=== PATIENT | male | born 1975 | race Caucasian/White ===

== ENCOUNTER 2018-03-02 17:20 | Emergency (ER) | payer SELFPAY ==
[2018-03-02] MEDS ORDERED: IPRATROPIUM BROM 0.5MG/2.5ML ONE (18:02)
[2018-03-02] MEDS ORDERED: ALBUTEROL 2.5 MG/3 ML NEB SOL ONE (18:02)
--- NOTE | 2018-03-02 18:59 | ER ---
Nurse's Notes [facility] Name: Catracho Motta Age: 42 yrs Sex: Male : 1975 Arrival Date: 03/02/2018 Time: 17:24 Bed 19 Private MD: Diagnosis: Bronchitis, not specified as acute or chronic Presentation: 03/02 17:28 Presenting complaint: Patient states: non-productive cough, chest congestion, nasal aa5 drainage, and fever. Pt's significant other states "he's been taking Z-pack for the last 2 days without relief". Transition of care: patient was not received from another setting of care. Onset of symptoms was February 2018. Initial Sepsis Screen: Does the patient meet any 2 criteria? HR > 90 bpm. Does the patient have a suspected source of infection? No. Patient's initial sepsis screen is negative. Care prior to arrival: None. 17:28 Method Of Arrival: Ambulatory aa5 17:28 Acuity: JUANA 3 aa5 Historical: - Allergies: 17:29 No Known Allergies; aa5 - PMHx: 17:29 Anxiety; Arthritis; aa5 - PSHx: 17:29 None; aa5 - Immunization history:: Flu vaccine is not up to date. - Social history:: Smoking status: Patient/guardian denies using tobacco. Screenin:00 Abuse screen: Denies threats or abuse. Denies injuries from another. Nutritional jl7 screening: No deficits noted. Tuberculosis screening: No symptoms or risk factors identified. Fall Risk None identified. Assessment: 19:08 General: Appears in no apparent distress. Behavior is calm, cooperative, appropriate jd3 for age. Pain: Denies pain. Neuro: Level of Consciousness is awake, alert, obeys commands, Oriented to person, place, time, situation. Respiratory: Airway is patent Respiratory effort is even, unlabored, Respiratory pattern is regular, symmetrical. 19:08 Reassessment: Patient appears in no apparent distress at this time. Patient and/or jd3 family updated on plan of care and expected duration. Pain level reassessed. Patient is alert, oriented x 3, equal unlabored respirations, skin warm/dry/pink. pt reporting understanding of discharge instructions, even and steady gait upon dishcarge. Vital Signs: 17:30 BP 142 / 77; Pulse 98; Resp 18 S; Temp 97.7(TE); Pulse Ox 98% on R/A; Weight 117.93 kg aa5 (R); Height 5 ft. 10 in. (177.80 cm) (R); 18:30 BP 146 / 87; Pulse 90; Resp 18; Pulse Ox 99% ; jl7 17:30 Body Mass Index 37.31 (117.93 kg, 177.80 cm) aa5 ED Course: 17:24 Patient arrived in ED. sb2 17:29 Triage completed. aa5 17:29 Arm band placed on. aa5 17:32 Mecca Benitez FNP-C is PHCP. kb 17:32 Michael Ahn MD is Attending Physician. kb 17:48 Cristian Hwang, LEOBARDO is Primary Nurse. jl7 18:00 Patient has correct armband on for positive identification. Bed in low position. Call jl7 light in reach. Side rails up X 1. Pulse ox on. NIBP on. 18:39 Chest Pa And Lat (2 Views) XRAY In Process Unspecified. EDMS 19:09 No provider procedures requiring assistance completed. Patient did not have IV access jd3 during this emergency room visit. Administered Medications: 18:07 Drug: DuoNeb (3:1) (2.5 mg - 0.5 mg) 3 ml Route: Nebulizer; jl7 18:56 Follow up: Response: No adverse reaction jl7 Outcome: 18:59 Discharge ordered by . kb 19:09 Discharged to home ambulatory, with family. jd3 19:09 Condition: stable 19:09 Discharge instructions given to patient, family, Instructed on discharge instructions, follow up and referral plans. medication usage, Demonstrated understanding of instructions, follow-up care, medications, Prescriptions given X 2. 19:10 Patient left the ED. jd3 Signatures: Dispatcher [employer] EDMS Mecca Benitez FNP-C FNP-Ckb Calderon, Audri RN RN aa5 Cristian Hwang, RN RN jl7 Oscar Riley RN RN jd3 Mayra Linares sb2 Corrections: (The following items were deleted from the chart) 17:29 17:28 Initial Sepsis Screen: Does the patient meet any 2 criteria? No. Patient's aa5 initial sepsis screen is negative. Does the patient have a suspected source of infection? No. Patient's initial sepsis screen is negative. aa5 17:30 17:30 BP 142 / 77; Pulse 98bpm; Resp 18bpm; Spontaneous; Pulse Ox 98% RA; Temp 97.7F aa5 Temporal; aa5
--- NOTE | 2018-03-02 18:59 | EDPHYS ---
Physician Documentation [facility] Name: Catracho Motta Age: 42 yrs Sex: Male : 1975 Arrival Date: 03/02/2018 Time: 17:24 Bed 19 Private MD: ED Physician Michael Ahn HPI: 03/02 19:00 This 42 yrs old Male presents to ER via Ambulatory with complaints of Chest kb Congestion, Cough, Fever. 19:00 The patient or guardian reports cough, that is intermittent, described as mild, with no kb sputum, difficulty breathing. Onset: The symptoms/episode began/occurred last week. Severity of symptoms: At their worst the symptoms were moderate, in the emergency department the symptoms are unchanged. Modifying factors: The symptoms are alleviated by nothing, the symptoms are aggravated by nothing. Associated signs and symptoms: Pertinent positives: rhinorrhea, Pertinent negatives: chest pain, diarrhea, ear ache, fever, nausea, sore throat, vomiting. The patient has not experienced similar symptoms in the past. The patient has not recently seen a physician. Historical: - Allergies: 17:29 No Known Allergies; aa5 - PMHx: 17:29 Anxiety; Arthritis; aa5 - PSHx: 17:29 None; aa5 - Immunization history:: Flu vaccine is not up to date. - Social history:: Smoking status: Patient/guardian denies using tobacco. ROS: 19:00 Constitutional: Negative for fever, chills, and weight loss, Cardiovascular: Negative kb for chest pain, palpitations, and edema, Abdomen/GI: Negative for abdominal pain, nausea, vomiting, diarrhea, and constipation, Back: Negative for injury and pain, : Negative for injury, bleeding, discharge, and swelling, MS/Extremity: Negative for injury and deformity, Skin: Negative for injury, rash, and discoloration, Neuro: Negative for headache, weakness, numbness, tingling, and seizure. 19:00 ENT: Positive for rhinorrhea, sinus congestion, sinus pain. 19:00 Respiratory: Positive for cough, "sounds productive", shortness of breath, Negative for dyspnea on exertion, hemoptysis, orthopnea, pleurisy, wheezing. Exam: 19:00 Constitutional: This is a well developed, well nourished patient who is awake, alert, kb and in no acute distress. Head/Face: Normocephalic, atraumatic. ENT: Nares patent. No nasal discharge, no septal abnormalities noted. Tympanic membranes are normal and external auditory canals are clear. Oropharynx with no redness, swelling, or masses, exudates, or evidence of obstruction, uvula midline. Mucous membranes moist. Neck: Trachea midline, no thyromegaly or masses palpated, and no cervical lymphadenopathy. Supple, full range of motion without nuchal rigidity, or vertebral point tenderness. No Meningismus. Chest/axilla: Normal chest wall appearance and motion. Nontender with no deformity. No lesions are appreciated. Cardiovascular: Regular rate and rhythm with a normal S1 and S2. No gallops, murmurs, or rubs. Normal PMI, no JVD. No pulse deficits. Respiratory: Lungs have equal breath sounds bilaterally, clear to auscultation and percussion. No rales, rhonchi or wheezes noted. No increased work of breathing, no retractions or nasal flaring. Abdomen/GI: Soft, non-tender, with normal bowel sounds. No distension or tympany. No guarding or rebound. No evidence of tenderness throughout. Skin: Warm, dry with normal turgor. Normal color with no rashes, no lesions, and no evidence of cellulitis. MS/ Extremity: Pulses equal, no cyanosis. Neurovascular intact. Full, normal range of motion. Neuro: Awake and alert, GCS 15, oriented to person, place, time, and situation. Cranial nerves II-XII grossly intact. Motor strength 5/5 in all extremities. Sensory grossly intact. Cerebellar exam normal. Normal gait. Vital Signs: 17:30 BP 142 / 77; Pulse 98; Resp 18 S; Temp 97.7(TE); Pulse Ox 98% on R/A; Weight 117.93 kg aa5 (R); Height 5 ft. 10 in. (177.80 cm) (R); 18:30 BP 146 / 87; Pulse 90; Resp 18; Pulse Ox 99% ; jl7 17:30 Body Mass Index 37.31 (117.93 kg, 177.80 cm) aa5 MDM: 17:34 Patient medically screened. kb 18:58 Data reviewed: vital signs, nurses notes. Data interpreted: Pulse oximetry: on room air kb is 99 %. Interpretation: normal. Counseling: I had a detailed discussion with the patient and/or guardian regarding: the historical points, exam findings, and any diagnostic results supporting the discharge/admit diagnosis, radiology results, the need for outpatient follow up, a family practitioner, to return to the emergency department if symptoms worsen or persist or if there are any questions or concerns that arise at home. 03/02 17:52 Order name: Chest Pa And Lat (2 Views) XRAY kb Administered Medications: 18:07 Drug: DuoNeb (3:1) (2.5 mg - 0.5 mg) 3 ml Route: Nebulizer; [facility] 18:56 Follow up: Response: No adverse reaction [facility] Disposition: 03/03 10:33 Co-signature as Attending Physician, Michael Ahn MD. rn Disposition: 03/02/18 18:59 Discharged to Home. Impression: Bronchitis, not specified as acute or chronic. - Condition is Stable. - Discharge Instructions: How to Use an Inhaler, Acute Bronchitis, [id number]. - Prescriptions for Prednisone 20 mg Oral Tablet - take 1 tablet by ORAL route once daily for 5 days; 5 tablet. Albuterol Sulfate 90 mcg/actuation - inhale 1-2 puff by INHALATION route every 4-6 hours; 1 Inhaler. - Medication Reconciliation Form, Thank You Letter, Antibiotic Education, Prescription Opioid Use form. - Follow up: Private Physician; When: 2 - 3 days; Reason: Recheck today's complaints, Continuance of care, Re-evaluation by your physician. Follow up: Emergency Department; When: As needed; Reason: Worsening of condition. Signatures: Dispatcher [employer] EDSD Mecca Benitez, TEMPER MILL OPERATOR-C TEMPER MILL OPERATOR-Ckb Michael Ahn MD MD rn Calderon, Audri, RN RN aa5 Cristian Hwang RN RN jl7 Oscar Rilye RN RN jd3 Corrections: (The following items were deleted from the chart) 03/02 19:10 18:59 03/02/2018 18:59 Discharged to Home. Impression: Bronchitis, not specified as jd3 acute or chronic. Condition is Stable. Forms are Medication Reconciliation Form, Thank You Letter, Antibiotic Education, Prescription Opioid Use. Follow up: Private Physician; When: 2 - 3 days; Reason: Recheck today's complaints, Continuance of care, Re-evaluation by your physician. Follow up: Emergency Department; When: As needed; Reason: Worsening of condition. kb
--- NOTE | 2018-03-02 19:13 | RAD REPORT ---
EXAM DESCRIPTION: Maureen Kelly (2 Views)03/02/2018 6:46 pm CLINICAL HISTORY: Cough COMPARISON: 2016 FINDINGS: The lungs appear clear of acute infiltrate. The heart is normal size IMPRESSION: No acute abnormalities displayed
[2018-03-02 19:21] VITALS: TEMP 97.7
[2018-03-02 19:22] VITALS: BP 146/87; O2SAT 99
== END 2018-03-02 19:10 | disposition home or self-care (01) ==
LOC: ER 17:20
DX: J40 Bronchitis, not specified as acute or chronic (principal)
CPT/HCPCS: 71046; 94640; 99284

== ENCOUNTER 2018-07-03 14:30 | Emergency (ER) | payer SELFPAY ==
[2018-07-03] MEDS ORDERED: NA CHLORIDE 0.9% 1,000 ML ONE (15:00)
[2018-07-03] MEDS ORDERED: CEFAZOLIN/SWI 1gm 1 GM/10 ML SYR ONE (15:01)
[2018-07-03 15:33] LABS: Absolute Lymphocytes (CBC) 1.8 K/uL (0.7-4.9); Absolute Monocytes 0.5 K/uL (0.1-1.3); Absolute Neutrophil 6.5 K/uL (1.8-8.0); Basophils % 0.8 % (0-1.3); Eosinophils % 1.3 % (0-4.4); Hematocrit 45.5 % (39.6-49.0); Lymphocytes % 20.5 % (15.3-44.8); MCH 29.2 pg (27.0-35.0); MCV 83.4 fL (80-100); Monocytes % 5.4 % (3.3-12.3); RBC Red Blood Cell Count 5.46 M/uL (4.33-5.43)
[2018-07-03 15:35] LABS: Potassium 4.3 mmol/L (3.5-5.1)
[2018-07-03 16:39] LABS: Protime INR 0.94
--- NOTE | 2018-07-03 17:02 | ER ---
Nurse's Notes [facility] Name: Catracho Motta Age: 42 yrs Sex: Male : 1975 Arrival Date: 07/03/2018 Time: 14:31 Bed 4 Private MD: Yemi Chow E Diagnosis: Other contact with nonvenomous snake;Abrasion of ankle Presentation: 07/03 14:34 Presenting complaint: Patient states: thinks he was bitten by a [place] snake about iw an hour ago, possible puncture wound to right medial ankle, no redness or swelling noted to area, small amount of bruising. Transition of care: patient was not received from another setting of care. Onset of symptoms was July 03, 2018. Risk Assessment: Do you want to hurt yourself or someone else? Patient reports no desire to harm self or others. Initial Sepsis Screen: Does the patient meet any 2 criteria? No. Patient's initial sepsis screen is negative. Does the patient have a suspected source of infection? No. Patient's initial sepsis screen is negative. Care prior to arrival: None. 14:34 Method Of Arrival: Wheelchair 14:34 Acuity: JUANA 3 iw Triage Assessment: 15:12 Bite description: bite sustained to right ankle by a snake, animal information: tw2 vaccination(s) is unknown. General: Appears in no apparent distress. Behavior is appropriate for age. Historical: - Allergies: 14:38 No Known Allergies; iw - Home Meds: 14:38 Clonazepam Oral [Active]; Klonopin Oral [Active]; sertraline Oral [Active]; iw - PMHx: 14:38 Anxiety; Arthritis; iw - PSHx: 14:38 None; iw - Immunization history:: Last tetanus immunization: up to date. - Ebola Screening: : Patient negative for fever greater than or equal to 101.5 degrees Fahrenheit, and additional compatible Ebola Virus Disease symptoms Patient denies exposure to infectious person Patient denies travel to an Ebola-affected area in the 21 days before illness onset No symptoms or risks identified at this time. - Social history:: Smoking status: . Screenin:36 Abuse screen: Denies threats or abuse. Nutritional screening: No deficits noted. tw2 Tuberculosis screening: No symptoms or risk factors identified. Fall Risk None identified. Assessment: 14:50 Derm: Skin is intact, Skin is pink, warm \T\ dry. tw2 17:13 Reassessment: Patient appears in no apparent distress at this time. Patient and/or iw family updated on plan of care and expected duration. Pain level reassessed. Patient is alert, oriented x 3, equal unlabored respirations, skin warm/dry/pink. Patient states feeling better. Patient states symptoms have improved. Pain: Denies pain. Vital Signs: 14:41 BP 110 / 98; Pulse 119; Resp 20; Pulse Ox 97% on R/A; tw2 15:11 Temp 98.3(O); tw2 15:50 BP 126 / 59; Pulse 101; Resp 17; Pulse Ox 98% on R/A; tw2 16:30 BP 137 / 88; Pulse 95; Resp 19; Pulse Ox 100% on R/A; tw2 16:50 BP 128 / 93; Pulse 102; Resp 22; Pulse Ox 99% on R/A; tw2 17:13 BP 125 / 89; Pulse 99; Resp 18 S; Pulse Ox 97% on R/A; iw ED Course: 14:31 Patient arrived in ED. rg4 14:31 Yemi Chow MD is Private Physician. rg4 14:36 Naida Harden, LEOBARDO is Primary Nurse. tw2 14:37 Triage completed. iw 14:39 [facility]-C [facility]. snw 14:39 Anoop Joyce MD is Attending Physician. snw 14:50 telemetry monitor on. Pulse ox on. NIBP on. tw2 14:51 Inserted saline lock: 22 gauge in right antecubital area, using aseptic technique. tw2 Blood collected. 15:12 Bed in low position. Call light in reach. Adult w/ patient. tw2 15:12 Arm band placed on. tw2 16:59 Yemi Chow MD is Referral Physician. snw 17:13 No provider procedures requiring assistance completed. IV discontinued, intact, iw bleeding controlled, No redness/swelling at site. Pressure dressing applied. Administered Medications: 14:51 Not Given (Patient Refused; pt states up to date): Tetanus-Diphtheria Toxoid Adult 0.5 tw2 ml IM once 14:55 Drug: Ancef 1 grams Route: IVPB; Site: right antecubital; tw2 15:30 Follow up: IV Status: Completed infusion iw 15:00 Drug: NS 0.9% 1000 ml {Note: per Purvi, bolus NS 1 L at this time.} Route: IV; Rate: 1 tw2 bolus; Site: right antecubital; 17:14 Follow up: IV Status: Order to discontinue infusion iw Outcome: 17:01 Discharge ordered by MD. felix 17:13 Discharged to home ambulatory, with family. iw 17:13 Condition: good 17:13 Discharge instructions given to patient, Instructed on discharge instructions, follow up and referral plans. medication usage, Demonstrated understanding of instructions, follow-up care, medications, Prescriptions given X 2. 17:14 Patient left the ED. iw Signatures: Purvi Farah, BEAD FILLER-C BEAD FILLER-Csnw Elba Sanford, RN RN iw Naida Harden RN RN tw2 Chinyere Lockhart rg4
--- NOTE | 2018-07-03 17:02 | EDPHYS ---
Physician Documentation [facility] Name: Catracho Motta Age: 42 yrs Sex: Male : 1975 Arrival Date: 07/03/2018 Time: 14:31 Bed 4 Private MD: Yemi Chow E ED Physician Anoop Joyce HPI: 07/03 14:48 This 42 yrs old Male presents to ER via Wheelchair with complaints of Snake snw bite. 14:48 The patient was bitten on the right ankle, by a snake, (water moccasin) per pt report. snw Onset: The symptoms/episode began/occurred suddenly, 1 hour(s) ago, and became persistent. Animal information: "[place]". Secondary to the bite the patient reports an abrasion. Associated signs and symptoms: The patient has no apparent associated signs or symptoms. Severity of symptoms: At their worst the symptoms were very mild. The patient has not experienced similar symptoms in the past. It is unknown whether or not the patient has recently seen a physician. Historical: - Allergies: 14:38 No Known Allergies; iw - Home Meds: 14:38 Clonazepam Oral [Active]; Klonopin Oral [Active]; sertraline Oral [Active]; iw - PMHx: 14:38 Anxiety; Arthritis; iw - PSHx: 14:38 None; iw - Immunization history:: Last tetanus immunization: up to date. - Ebola Screening: : Patient negative for fever greater than or equal to 101.5 degrees Fahrenheit, and additional compatible Ebola Virus Disease symptoms Patient denies exposure to infectious person Patient denies travel to an Ebola-affected area in the 21 days before illness onset No symptoms or risks identified at this time. - Social history:: Smoking status: . ROS: 14:48 Constitutional: Negative for fever, chills, and weight loss, Eyes: Negative for injury, snw pain, redness, and discharge, ENT: Negative for injury, pain, and discharge, Neck: Negative for injury, pain, and swelling, Cardiovascular: Negative for chest pain, palpitations, and edema, Respiratory: Negative for shortness of breath, cough, wheezing, and pleuritic chest pain, Abdomen/GI: Negative for abdominal pain, nausea, vomiting, diarrhea, and constipation, Back: Negative for injury and pain, : Negative for injury, bleeding, discharge, and swelling, MS/Extremity: Negative for injury and deformity, Neuro: Negative for headache, weakness, numbness, tingling, and seizure. 14:48 Skin: Positive for abrasion(s), of the right ankle. Exam: 14:46 Constitutional: This is a well developed, well nourished patient who is awake, alert, snw and in no acute distress. Head/Face: Normocephalic, atraumatic. Eyes: Pupils equal round and reactive to light, extra-ocular motions intact. Lids and lashes normal. Conjunctiva and sclera are non-icteric and not injected. Cornea within normal limits. Periorbital areas with no swelling, redness, or edema. ENT: Nares patent. No nasal discharge, no septal abnormalities noted. Tympanic membranes are normal and external auditory canals are clear. Oropharynx with no redness, swelling, or masses, exudates, or evidence of obstruction, uvula midline. Mucous membranes moist. Neck: Trachea midline, no thyromegaly or masses palpated, and no cervical lymphadenopathy. Supple, full range of motion without nuchal rigidity, or vertebral point tenderness. No Meningismus. Chest/axilla: Normal chest wall appearance and motion. Nontender with no deformity. No lesions are appreciated. Cardiovascular: Regular rate and rhythm with a normal S1 and S2. No gallops, murmurs, or rubs. Normal PMI, no JVD. No pulse deficits. Respiratory: Lungs have equal breath sounds bilaterally, clear to auscultation and percussion. No rales, rhonchi or wheezes noted. No increased work of breathing, no retractions or nasal flaring. Abdomen/GI: Soft, non-tender, with normal bowel sounds. No distension or tympany. No guarding or rebound. No evidence of tenderness throughout. Back: No spinal tenderness. No costovertebral tenderness. Full range of motion. MS/ Extremity: Pulses equal, no cyanosis. Neurovascular intact. Full, normal range of motion. Neuro: Awake and alert, GCS 15, oriented to person, place, time, and situation. Cranial nerves II-XII grossly intact. Motor strength 5/5 in all extremities. Sensory grossly intact. Cerebellar exam normal. Normal gait. Psych: Awake, alert, with orientation to person, place and time. Behavior, mood, and affect are within normal limits. 14:46 Skin: Appearance: normal except for affected area, injury, abrasion(s), very small abrasion noted, of the right ankle, minimal edema, probable dry bite if pt was bitten, abrasion with minute amount of edema noted to medial right ankle. Vital Signs: 14:41 BP 110 / 98; Pulse 119; Resp 20; Pulse Ox 97% on R/A; tw2 15:11 Temp 98.3(O); tw2 15:50 BP 126 / 59; Pulse 101; Resp 17; Pulse Ox 98% on R/A; tw2 16:30 BP 137 / 88; Pulse 95; Resp 19; Pulse Ox 100% on R/A; tw2 16:50 BP 128 / 93; Pulse 102; Resp 22; Pulse Ox 99% on R/A; tw2 17:13 BP 125 / 89; Pulse 99; Resp 18 S; Pulse Ox 97% on R/A; iw MDM: 14:40 Patient medically screened. [facility] 16:27 Data reviewed: vital signs, nurses notes. Data interpreted: Pulse oximetry: on room air snw is 97 %. Interpretation: normal. Counseling: I had a detailed discussion with the patient and/or guardian regarding: the historical points, exam findings, and any diagnostic results supporting the discharge/admit diagnosis, the presence of at least one elevated blood pressure reading (>120/80) during this emergency department visit, lab results, the need for outpatient follow up. ED course: zero change in appearance of abrasion on ankle. 07/03 14:41 Order name: CBC with Diff; Complete Time: 15:47 snw 07/03 14:41 Order name: Chem 7; Complete Time: 15:37 snw 07/03 14:41 Order name: Fibrinogen snw 07/03 14:41 Order name: PT-INR snw 07/03 14:41 Order name: Ptt, Activated snw 07/03 16:28 Order name: VS Recheck; Complete Time: 17:14 snw Administered Medications: 14:51 Not Given (Patient Refused; pt states up to date): Tetanus-Diphtheria Toxoid Adult 0.5 tw2 ml IM once 14:55 Drug: Ancef 1 grams Route: IVPB; Site: right antecubital; tw2 15:30 Follow up: IV Status: Completed infusion iw 15:00 Drug: NS 0.9% 1000 ml {Note: per Purvi, bolus NS 1 L at this time.} Route: IV; Rate: 1 tw2 bolus; Site: right antecubital; 17:14 Follow up: IV Status: Order to discontinue infusion iw Disposition: 07/04 06:56 Co-signature as Attending Physician, Anoop Joyce MD I agree with the assessment and reece plan of care. Disposition: 07/03/18 17:01 Discharged to Home. Impression: Other contact with nonvenomous snake, Abrasion of ankle. - Condition is Stable. - Discharge Instructions: Abrasion, Snake Bite, VIS, Tetanus, Diphtheria (Td) - [facility]. - Prescriptions for Keflex 500 mg Oral Capsule - take 1 capsule by ORAL route every 8 hours for 10 days; 30 capsule. Diclofenac Sodium 75 mg Oral Tablet Sustained Release - take 1 tablet by ORAL route 2 times per day; 30 tablet. - Medication Reconciliation Form, Thank You Letter, Antibiotic Education, Prescription Opioid Use form. - Follow up: Yemi Chow MD; When: 2 - 3 days; Reason: Recheck today's complaints, Continuance of care, Re-evaluation by your physician. Follow up: Emergency Department; When: As needed; Reason: Worsening of condition. Signatures: Dispatcher [employer] EDSC Anoop Joyce MD MD cha Therrien, Shelly, WELT BEATER-C WELT BEATER-Csnw Elba Sanford, RN RN iw Naida Harden RN RN tw2 Corrections: (The following items were deleted from the chart) 07/03 15:14 14:42 BLOOD CULTURE*+BA.LAB.BRZ ordered. [facility] 15:14 14:42 TYPE AND SCREEN+BB.LAB.BRZ ordered. [facility] 17:14 17:01 07/03/2018 17:01 Discharged to Home. Impression: Other contact with nonvenomous iw snake; Abrasion of ankle. Condition is Stable. Forms are Medication Reconciliation Form, Thank You Letter, Antibiotic Education, Prescription Opioid Use. Follow up: Yemi Chow; When: 2 - 3 days; Reason: Recheck today's complaints, Continuance of care, Re-evaluation by your physician. Follow up: Emergency Department; When: As needed; Reason: Worsening of condition. snw
[2018-07-03 17:21] VITALS: TEMP 98.3
[2018-07-03 17:26] VITALS: BP 125/89; O2SAT 97
== END 2018-07-03 17:14 | disposition home or self-care (01) ==
LOC: ER 14:30
DX: S90.511A Abrasion, right ankle, initial encounter (principal); W59.19XA Other contact with nonvenomous snake, initial encounter; Y93.9 Activity, unspecified; Y92.9 Unspecified place or not applicable; F41.9 Anxiety disorder, unspecified
CPT/HCPCS: 36415; 80048; 85025; 85384; 85610; 85730; 96361; 96365; 99284; J0690; J7030

== ENCOUNTER 2019-05-12 09:21 | Emergency (ER) | payer SELFPAY ==
[2019-05-12] MEDS ORDERED: TETRACAINE HCL 0.5% 4ML OPTH ONE (10:03)
[2019-05-12] MEDS ORDERED: FLUORESCEIN SODIUM 1 MG/WRAP ONE (10:04)
--- NOTE | 2019-05-12 10:08 | ER ---
Nurse's Notes [facility] Name: Catracho Motta Age: 43 yrs Sex: Male : 1975 Arrival Date: 05/12/2019 Time: 09:23 Bed 16 Private MD: Diagnosis: Foreign body in cornea, left eye Presentation: 05/12 09:27 Presenting complaint: Patient states: i think i still have a piece of cast iron on my L hj eye, noticed it last night; denies blurry vision of changes on vision; denies pain;. Transition of care: patient was not received from another setting of care. Onset of symptoms was May 12, 2019. Risk Assessment: Do you want to hurt yourself or someone else? Patient reports no desire to harm self or others. Initial Sepsis Screen: Does the patient meet any 2 criteria? No. Patient's initial sepsis screen is negative. Does the patient have a suspected source of infection? No. Patient's initial sepsis screen is negative. Care prior to arrival: None. 09:27 Method Of Arrival: Ambulatory 09:27 Acuity: JUANA 4 hj Triage Assessment: 09:31 General: Appears in no apparent distress. uncomfortable, Behavior is calm, cooperative, hj appropriate for age. Pain: Denies pain. Historical: - Allergies: 09:30 No Known Allergies; hj - Home Meds: 09:30 Clonazepam Oral [Active]; Klonopin Oral [Active]; sertraline Oral [Active]; hj - PMHx: 09:30 Anxiety; Arthritis; hj - PSHx: 09:30 None; hj - Immunization history:: Adult Immunizations up to date. - Social history:: Smoking status: Patient/guardian denies using tobacco, Patient/guardian denies using alcohol. - Ebola Screening: : Patient negative for fever greater than or equal to 101.5 degrees Fahrenheit, and additional compatible Ebola Virus Disease symptoms Patient denies exposure to infectious person Patient denies travel to an Ebola-affected area in the 21 days before illness onset. Screenin:30 Abuse screen: Denies threats or abuse. Denies injuries from another. Nutritional hj screening: No deficits noted. Tuberculosis screening: No symptoms or risk factors identified. Fall Risk None identified. Vital Signs: 09:31 BP 158 / 96; Pulse 104; Resp 18; Temp 98.1(O); Pulse Ox 100% ; Weight 117.93 kg; Height hj 5 ft. 10 in. (177.80 cm); Pain 0/10; 09:31 Body Mass Index 37.31 (117.93 kg, 177.80 cm) hj Visual Acuity: 09:32 Left Eye Visual acuity 20/70, ; Right Eye Visual acuity 20/13, ; Both Eyes Visual hj acuity 20/13; Without Lenses; wears corrective lenses to drive; pt has left eye astigmatism ED Course: 09:23 Patient arrived in ED. rg4 09:27 Carter Richmond, RN is Primary Nurse. hj 09:28 Triage completed. hj 09:31 Arm band placed on left wrist. hj 09:31 Patient has correct armband on for positive identification. Bed in low position. Call hj light in reach. Side rails up X 1. 09:44 Rahul Rosenberg [facility] is [facility]. jr8 09:44 Judd Jennings MD is Attending Physician. jr8 10:08 Jolanta Nazario MD is Referral Physician. jr8 10:14 No provider procedures requiring assistance completed. Patient did not have IV access hj during this emergency room visit. Administered Medications: No medications were administered Outcome: 10:08 Discharge ordered by . jr8 10:14 Discharged to home ambulatory. hj 10:14 Condition: stable 10:14 Discharge instructions given to patient, Instructed on discharge instructions, follow up and referral plans. medication usage, Demonstrated understanding of instructions, follow-up care, medications, Prescriptions given X 1. 10:15 Patient left the ED. Signatures: Rahul Rosenberg PA PA jr8 Carter Richmond RN RN hj Garcia, Rubi rg4 Sarahy Davidson 3 Corrections: (The following items were deleted from the chart) 10:00 09:32 Right Eye Without Lenses, 20/13, Left Eye Without Lenses, 20/70, Both Eyes hj Without Lenses, 20/13, wears corrective lenses to drive; pt has left eye stigmatism 3
--- NOTE | 2019-05-12 10:09 | EDPHYS ---
Physician Documentation [facility] Name: Catracho Motta Age: 43 yrs Sex: Male : 1975 Arrival Date: 05/12/2019 Time: 09:23 Bed 16 Private MD: ED Physician Judd Jennings HPI: 05/12 10:09 This 43 yrs old Male presents to ER via Ambulatory with complaints of Eye jr8 Problem. 10:09 The patient is experiencing foreign body sensation, to the left eye, caused by metal jr8 fragment. Onset: The symptoms/episode began/occurred acutely, last night. Duration: the symptoms are continuous. Aggravated by nothing. Alleviated by nothing. Associated signs and symptoms: Pertinent negatives: tearing, drainage, vision disturbances. Patient wears glasses. The patient has not experienced similar symptoms in the past. The patient has not recently seen a physician. reports piece of cast iron to left eye since last night. Historical: - Allergies: 09:30 No Known Allergies; hj - Home Meds: 09:30 Clonazepam Oral [Active]; Klonopin Oral [Active]; sertraline Oral [Active]; hj - PMHx: 09:30 Anxiety; Arthritis; hj - PSHx: 09:30 None; hj - Immunization history:: Adult Immunizations up to date. - Social history:: Smoking status: Patient/guardian denies using tobacco, Patient/guardian denies using alcohol. - Ebola Screening: : Patient negative for fever greater than or equal to 101.5 degrees Fahrenheit, and additional compatible Ebola Virus Disease symptoms Patient denies exposure to infectious person Patient denies travel to an Ebola-affected area in the 21 days before illness onset. ROS: 10:09 Constitutional: Negative for fever, chills, and weight loss, ENT: Negative for injury, jr8 pain, and discharge, Neck: Negative for injury, pain, and swelling, Cardiovascular: Negative for chest pain, palpitations, and edema, Respiratory: Negative for shortness of breath, cough, wheezing, and pleuritic chest pain, Abdomen/GI: Negative for abdominal pain, nausea, vomiting, diarrhea, and constipation, MS/Extremity: Negative for injury and deformity, Skin: Negative for injury, rash, and discoloration, Neuro: Negative for headache, weakness, numbness, tingling, and seizure. 10:09 Eyes: Positive for foreign body sensation, Negative for blurry vision, discharge, matting, tearing, vision loss, visual disturbance. Exam: 10:09 Constitutional: This is a well developed, well nourished patient who is awake, alert, jr8 and in no acute distress. Head/Face: Normocephalic, atraumatic. ENT: Nares patent. No nasal discharge, no septal abnormalities noted. Tympanic membranes are normal and external auditory canals are clear. Oropharynx with no redness, swelling, or masses, exudates, or evidence of obstruction, uvula midline. Mucous membranes moist. Neck: Trachea midline, no thyromegaly or masses palpated, and no cervical lymphadenopathy. Supple, full range of motion without nuchal rigidity, or vertebral point tenderness. No Meningismus. Chest/axilla: Normal chest wall appearance and motion. Nontender with no deformity. No lesions are appreciated. Cardiovascular: Regular rate and rhythm with a normal S1 and S2. No gallops, murmurs, or rubs. Normal PMI, no JVD. No pulse deficits. Respiratory: Lungs have equal breath sounds bilaterally, clear to auscultation and percussion. No rales, rhonchi or wheezes noted. No increased work of breathing, no retractions or nasal flaring. Abdomen/GI: Soft, non-tender, with normal bowel sounds. No distension or tympany. No guarding or rebound. No evidence of tenderness throughout. Skin: Warm, dry with normal turgor. Normal color with no rashes, no lesions, and no evidence of cellulitis. Neuro: Awake and alert, GCS 15, oriented to person, place, time, and situation. Cranial nerves II-XII grossly intact. Motor strength 5/5 in all extremities. Sensory grossly intact. Cerebellar exam normal. Normal gait. 10:09 Eyes: Periorbital structures: appear normal, Pupils: equal, round, and reactive to light and accomodation, Extraocular movements: intact throughout, Conjunctiva: normal, Corneas: foreign body, on the left, at 9 o'clock, a piece of metal, Examination of the other eye reveals no obvious gross abnormality. Vital Signs: 09:31 BP 158 / 96; Pulse 104; Resp 18; Temp 98.1(O); Pulse Ox 100% ; Weight 117.93 kg; Height hj 5 ft. 10 in. (177.80 cm); Pain 0/10; 09:31 Body Mass Index 37.31 (117.93 kg, 177.80 cm) Visual Acuity: 09:32 Left Eye Visual acuity 20/70, ; Right Eye Visual acuity 20/13, ; Both Eyes Visual hj acuity 20/13; Without Lenses; wears corrective lenses to drive; pt has left eye astigmatism Procedures: 10:08 Foreign Body Removal: a piece of metal, from the left eye, cornea without use of slit jr8 lamp by needle, The patient tolerated the removal well. Eye Exam: Tetracaine. MDM: 09:45 Patient medically screened. jr8 10:07 Data reviewed: vital signs, nurses notes, and as a result, I will discharge patient. jr8 Data interpreted: Pulse oximetry: on room air is 100 %. Interpretation: normal. Counseling: I had a detailed discussion with the patient and/or guardian regarding: the historical points, exam findings, and any diagnostic results supporting the discharge/admit diagnosis, the need for outpatient follow up, an opthalmologist, to return to the emergency department if symptoms worsen or persist or if there are any questions or concerns that arise at home. Administered Medications: No medications were administered Disposition: 16:41 Co-signature as Attending Physician, Judd Jennings MD I agree with the assessment and kdr plan of care. Disposition: 05/12/19 10:08 Discharged to Home. Impression: Foreign body in cornea, left eye. - Condition is Stable. - Discharge Instructions: Eye Foreign Body. - Prescriptions for Gentamicin 0.3 % Ophthalmic Drops - instill 2 drops by OPHTHALMIC route every 4 hours for 7 days; 1 bottle. - Medication Reconciliation Form, Thank You Letter, Antibiotic Education, Prescription Opioid Use form. - Follow up: Jolanta Nazario MD; When: 2 - 3 days; Reason: Recheck today's complaints, Continuance of care, Re-evaluation by your physician. - Problem is new. - Symptoms have improved. Signatures: Judd Jennings MD MD [facility] Rahul Rosenberg PA PA jr8 Carter Richmond RN RN Corrections: (The following items were deleted from the chart) 10:15 10:08 05/12/2019 10:08 Discharged to Home. Impression: Foreign body in cornea, left hj eye. Condition is Stable. Forms are Medication Reconciliation Form, Thank You Letter, Antibiotic Education, Prescription Opioid Use. Follow up: Jolanta Nazario; When: 2 - 3 days; Reason: Recheck today's complaints, Continuance of care, Re-evaluation by your physician. Problem is new. Symptoms have improved. jr8
[2019-05-12 10:28] VITALS: BP 158/96; TEMP 98.1; O2SAT 100
== END 2019-05-12 10:15 | disposition home or self-care (01) ==
LOC: ER 09:21
PROC: 08C9XZZ Extirpation of Matter from Left Cornea, External Approach (ICD-10-PCS; principal; 2019-05-12)
DX: T15.02XA Foreign body in cornea, left eye, initial encounter (principal); F41.9 Anxiety disorder, unspecified
CPT/HCPCS: 99282

== ENCOUNTER 2019-05-19 08:24 | Emergency (ER) | payer SELFPAY ==
[2019-05-19] MEDS ORDERED: TETRACAINE HCL 0.5% 4ML OPTH ONE (09:11)
[2019-05-19] MEDS ORDERED: FLUORESCEIN SODIUM 1 MG/WRAP ONE (09:12)
--- NOTE | 2019-05-19 09:23 | ER ---
Nurse's Notes [facility] Name: Catracho Motta Age: 43 yrs Sex: Male : 1975 Arrival Date: 05/19/2019 Time: 08:25 Bed 19 Private MD: Diagnosis: Injury of conjunctiva and corneal abrasion without foreign body, left eye-foreign body removed in ED Presentation: 05/19 08:41 Presenting complaint: Patient states: "I was here last week and they took something out aa5 of my left eye but this morning I woke up feeling like I have something in there again". Pt denies pain. 08:41 Transition of care: patient was not received from another setting of care. Onset of aa5 symptoms was May 19, 2019. Risk Assessment: Do you want to hurt yourself or someone else? Patient reports no desire to harm self or others. Initial Sepsis Screen: Does the patient meet any 2 criteria? No. Patient's initial sepsis screen is negative. Does the patient have a suspected source of infection? No. Patient's initial sepsis screen is negative. Care prior to arrival: None. 08:41 Acuity: JUANA 4 aa5 08:41 Method Of Arrival: Ambulatory aa5 Triage Assessment: 09:10 General: Appears in no apparent distress. comfortable, obese, Behavior is calm, ae4 cooperative, quiet. Pain: Complains of pain in left eye. EENT: Sclera/Cornea are reddened in outer aspect of conjuctiva of left eye, iris of left eye and inner aspect of conjunctiva of left eye. Neuro: Level of Consciousness is awake, alert, obeys commands, Oriented to person, place, time, situation, Appropriate for age. Cardiovascular: Patient's skin is warm and dry. Respiratory: Airway is patent Respiratory effort is even, unlabored. GI: No signs and/or symptoms were reported involving the gastrointestinal system. Abdomen is round obese. : No signs and/or symptoms were reported regarding the genitourinary system. Derm: No signs and/or symptoms reported regarding the dermatologic system. Musculoskeletal: No signs and/or symptoms reported regarding the musculoskeletal system. Historical: - Allergies: 08:42 No Known Allergies; aa5 - Home Meds: 08:42 Clonazepam Oral [Active]; Klonopin Oral [Active]; sertraline Oral [Active]; aa5 - PMHx: 08:42 Anxiety; Arthritis; aa5 - PSHx: 08:42 None; aa5 - Immunization history:: Last tetanus immunization: < 5 years ago. - Social history:: Smoking status: Patient/guardian denies using tobacco. - Ebola Screening: : No symptoms or risks identified at this time. Screenin:42 Abuse screen: Denies threats or abuse. Nutritional screening: No deficits noted. aa5 Tuberculosis screening: No symptoms or risk factors identified. Fall Risk None identified. Assessment: 08:42 General: Appears uncomfortable, Behavior is calm, cooperative. Pain: Denies pain. aa5 Neuro: Level of Consciousness is awake, alert, obeys commands, Oriented to person, place, time, situation. Cardiovascular: Patient's skin is warm and dry. Respiratory: Airway is patent Respiratory effort is even, unlabored, Respiratory pattern is regular, symmetrical. GI: No signs and/or symptoms were reported involving the gastrointestinal system. : No signs and/or symptoms were reported regarding the genitourinary system. EENT: Reports "I feel like I have something in my left eye" . Derm: Skin is pink, warm \\T\\ dry. Musculoskeletal: Range of motion: intact in all extremities. 09:27 Reassessment: Order for Opthalmic ointment faxed to pharmacy, spoke to Leoncio in ae4 pharmacy via telephone as well. Awaiting delivery of medication. Vital Signs: 08:42 BP 151 / 100; Pulse 107; Resp 18 S; Temp 98.4(O); Pulse Ox 98% on R/A; Weight 117.93 kg aa5 (R); Height 5 ft. 10 in. (177.80 cm) (R); Pain 0/10; 09:16 BP 136 / 79; Pulse 79; Resp 16; Pulse Ox 98% on R/A; ae4 08:42 Body Mass Index 37.31 (117.93 kg, 177.80 cm) aa5 ED Course: 08:25 Patient arrived in ED. as 08:30 Patient's name was called from ER lobby. No response. aa5 08:32 Allie Arreola, RN is Primary Nurse. aa5 08:40 Patient has correct armband on for positive identification. Bed in low position. Call aa5 light in reach. Side rails up X 1. 08:40 Arm band placed on. aa5 08:42 Purvi Farah [facility]C is [facility]. snw 08:42 Michael Ahn MD is Attending Physician. snw 08:50 Triage completed. aa5 09:05 Report given to Michael Dhaliwal, LEOBARDO. aa5 09:20 Jolanta Nazario MD is Referral Physician. snw 09:47 No provider procedures requiring assistance completed. Patient did not have IV access ae4 during this emergency room visit. Administered Medications: 09:00 Drug: Tetracaine Drops 0.5 % 1 drops Route: Ophthalmic; Site: left eye; ae4 09:47 Follow up: Response: No adverse reaction ae4 09:40 Drug: ERYTHromycin Ointment 1 application Route: Ophthalmic; Site: left eye; ae4 09:47 Follow up: Response: Medication administered at discharge. ae4 Outcome: 09:22 Discharge ordered by . snw 09:47 Discharged to home ambulatory. ae4 09:47 Condition: stable 09:47 Discharge instructions given to patient, Instructed on discharge instructions, follow up and referral plans. medication usage, Demonstrated understanding of instructions, Prescriptions given X 2. 09:48 Patient left the ED. ae4 Signatures: Purvi Farah FNP-C [employer] Nunn Audri, RN RN aa5 Michael Zimmerman RN RN ae4
--- NOTE | 2019-05-19 09:23 | EDPHYS ---
Physician Documentation [facility] Name: Catracho Mtota Age: 43 yrs Sex: Male : 1975 Arrival Date: 05/19/2019 Time: 08:25 Bed 19 Private MD: ED Physician Michael Ahn HPI: 05/19 09:18 This 43 yrs old Male presents to ER via Ambulatory with complaints of Eye snw Problem. 09:18 The patient is experiencing foreign body sensation, pain, to the left eye, caused by an snw unknown mechanism. Onset: The symptoms/episode began/occurred suddenly, today. Duration: the symptoms are continuous. Aggravated by blinking. Patient does not utilize any form of vision correction. Severity of symptoms: At their worst the symptoms were moderate. The patient has experienced a previous episode, last month. The patient has been recently seen at the [facility] Emergency Department, last month, for similar complaints pt states initial problem cleared completely, this am pt feels he washed something into same eye. Historical: - Allergies: 08:42 No Known Allergies; aa5 - Home Meds: 08:42 Clonazepam Oral [Active]; Klonopin Oral [Active]; sertraline Oral [Active]; aa5 - PMHx: 08:42 Anxiety; Arthritis; aa5 - PSHx: 08:42 None; aa5 - Immunization history:: Last tetanus immunization: < 5 years ago. - Social history:: Smoking status: Patient/guardian denies using tobacco. - Ebola Screening: : No symptoms or risks identified at this time. ROS: 09:13 Constitutional: Negative for fever, chills, and weight loss, Eyes: Negative for injury, snw redness, and discharge, + foreign body sensation ENT: Negative for injury, pain, and discharge, Neck: Negative for injury, pain, and swelling, Cardiovascular: Negative for chest pain, palpitations, and edema, Respiratory: Negative for shortness of breath, cough, wheezing, and pleuritic chest pain, Abdomen/GI: Negative for abdominal pain, nausea, vomiting, diarrhea, and constipation, Back: Negative for injury and pain, : Negative for injury, bleeding, discharge, and swelling, MS/Extremity: Negative for injury and deformity, Skin: Negative for injury, rash, and discoloration, Neuro: Negative for headache, weakness, numbness, tingling, and seizure. Exam: 09:13 Constitutional: This is a well developed, well nourished patient who is awake, alert, snw and in no acute distress. Head/Face: Normocephalic, atraumatic. ENT: Nares patent. No nasal discharge, no septal abnormalities noted. Tympanic membranes are normal and external auditory canals are clear. Oropharynx with no redness, swelling, or masses, exudates, or evidence of obstruction, uvula midline. Mucous membranes moist. Neck: Trachea midline, no thyromegaly or masses palpated, and no cervical lymphadenopathy. Supple, full range of motion without nuchal rigidity, or vertebral point tenderness. No Meningismus. Chest/axilla: Normal chest wall appearance and motion. Nontender with no deformity. No lesions are appreciated. Cardiovascular: Regular rate and rhythm with a normal S1 and S2. No gallops, murmurs, or rubs. Normal PMI, no JVD. No pulse deficits. Respiratory: Lungs have equal breath sounds bilaterally, clear to auscultation and percussion. No rales, rhonchi or wheezes noted. No increased work of breathing, no retractions or nasal flaring. Abdomen/GI: Soft, non-tender, with normal bowel sounds. No distension or tympany. No guarding or rebound. No evidence of tenderness throughout. Back: No spinal tenderness. No costovertebral tenderness. Full range of motion. Skin: Warm, dry with normal turgor. Normal color with no rashes, no lesions, and no evidence of cellulitis. MS/ Extremity: Pulses equal, no cyanosis. Neurovascular intact. Full, normal range of motion. Neuro: Awake and alert, GCS 15, oriented to person, place, time, and situation. Cranial nerves II-XII grossly intact. Motor strength 5/5 in all extremities. Sensory grossly intact. Cerebellar exam normal. Normal gait. 09:13 Eyes: Periorbital structures: appear normal, Pupils: no acute changes, Extraocular movements: intact throughout, Conjunctiva: normal, Corneas: foreign body, at 9 o'clock, a piece of metal, a fluorescein strip employed to appreciate the findings, left, also corneal abrasion medial to fb noted, Sclera: no appreciated abnormality, Lids and lashes: appear normal, bilaterally. Vital Signs: 08:42 BP 151 / 100; Pulse 107; Resp 18 S; Temp 98.4(O); Pulse Ox 98% on R/A; Weight 117.93 kg aa5 (R); Height 5 ft. 10 in. (177.80 cm) (R); Pain 0/10; 09:16 BP 136 / 79; Pulse 79; Resp 16; Pulse Ox 98% on R/A; ae4 08:42 Body Mass Index 37.31 (117.93 kg, 177.80 cm) aa5 MDM: 08:53 Patient medically screened. snw 09:24 Data reviewed: vital signs, nurses notes. Data interpreted: Pulse oximetry: on room air snw is 98 %. Interpretation: normal. Counseling: I had a detailed discussion with the patient and/or guardian regarding: the historical points, exam findings, and any diagnostic results supporting the discharge/admit diagnosis, the presence of at least one elevated blood pressure reading (>120/80) during this emergency department visit, the need for outpatient follow up, for definitive care, an opthalmologist. 05/19 09:13 Order name: Eye Tray; Complete Time: 09:19 snw 05/19 09:13 Order name: Fluoresene Opth strip; Complete Time: 09:19 snw Administered Medications: 09:00 Drug: Tetracaine Drops 0.5 % 1 drops Route: Ophthalmic; Site: left eye; ae4 09:47 Follow up: Response: No adverse reaction ae4 09:40 Drug: ERYTHromycin Ointment 1 application Route: Ophthalmic; Site: left eye; ae4 09:47 Follow up: Response: Medication administered at discharge. ae4 Disposition: 11:40 Co-signature as Attending Physician, Michael Ahn MD. rn Disposition: 05/19/19 09:22 Discharged to Home. Impression: Injury of conjunctiva and corneal abrasion without foreign body, left eye - foreign body removed in ED. - Condition is Stable. - Discharge Instructions: Corneal Abrasion, Eye Foreign Body, Hypertension. - Prescriptions for Vigamox 0.5 % Ophthalmic Drops - instill 1 drop by OPHTHALMIC route every 8 hours for 7 days; 5 milliliter. Diclofenac Sodium 75 mg Oral Tablet Sustained Release - take 1 tablet by ORAL route 2 times per day; 30 tablet. - Work release form, Medication Reconciliation Form, Thank You Letter, Antibiotic Education, Prescription Opioid Use form. - Follow up: Jolanta Nazario MD; When: 24 Hours; Reason: Recheck today's complaints, Continuance of care. - Notes: Wear safety glasses/goggles, even if your likes [employer]! Signatures: Purvi Farah, BATTERY RECHARGER-C BATTERY RECHARGER-Csnw Michael Ahn MD MD rn Allie Arreola, RN RN aa5 Michael Zimmerman RN RN ae4 Corrections: (The following items were deleted from the chart) 09:18 09:13 Eyes: Periorbital structures: appear normal, Pupils: no acute changes, snw Extraocular movements: intact throughout, Conjunctiva: normal, Corneas: foreign body, at 9 o'clock, a piece of metal, a fluorescein strip employed to appreciate the findings, snw 09:48 09:22 05/19/2019 09:22 Discharged to Home. Impression: Injury of conjunctiva and ae4 corneal abrasion without foreign body, left eye - foreign body removed in ED. Condition is Stable. Forms are Medication Reconciliation Form, Thank You Letter, Antibiotic Education, Prescription Opioid Use. Follow up: Jolanta Nazario; When: 24 Hours; Reason: Recheck today's complaints, Continuance of care. snw
[2019-05-19 09:53] VITALS: TEMP 98.4; O2SAT 98
[2019-05-19 09:55] VITALS: BP 136/79
[2019-05-19] MEDS ORDERED: ERYTHROMYCIN 1 APPL/1 GM TUBE LEFT EYE ONE (10:00)
== END 2019-05-19 09:48 | disposition home or self-care (01) ==
LOC: ER 08:24
DX: S05.02XA Injury of conjunctiva and corneal abrasion without foreign body, left eye, initial encounter (principal); F41.9 Anxiety disorder, unspecified
CPT/HCPCS: 99283

== ENCOUNTER 2019-10-26 12:10 | Emergency (ER) | payer BC ==
[2019-10-26] MEDS ORDERED: TETRACAINE HCL 0.5% 4ML OPTH ONE (13:23)
[2019-10-26] MEDS ORDERED: FLUORESCEIN SODIUM 1 MG/WRAP ONE (13:24)
--- NOTE | 2019-10-26 14:19 | ER ---
Nurse's Notes [facility] Name: Catracho Motta Age: 43 yrs Sex: Male : 1975 Arrival Date: 10/26/2019 Time: 12:11 Bed 12 Private MD: Diagnosis: Ocular pain, left eye Presentation: 10/26 12:40 Presenting complaint: Patient states: Working on metal last night when a piece may have ss gotten into L eye. Pt c/o L eye discomfort. Transition of care: patient was not received from another setting of care. Onset of symptoms was October 25, 2019. Risk Assessment: Do you want to hurt yourself or someone else? Patient reports no desire to harm self or others. Initial Sepsis Screen: Does the patient meet any 2 criteria? No. Patient's initial sepsis screen is negative. Does the patient have a suspected source of infection? No. Patient's initial sepsis screen is negative. Care prior to arrival: None. 12:40 Method Of Arrival: Ambulatory ss 12:40 Acuity: JUANA 4 ss Historical: - Allergies: 12:41 No Known Allergies; ss - PMHx: 12:41 Anxiety; Arthritis; ss - PSHx: 12:41 None; ss - Immunization history:: Adult Immunizations up to date. - Social history:: Smoking status: Patient/guardian denies using tobacco. - Ebola Screening: : Patient denies exposure to infectious person Patient denies travel to an Ebola-affected area in the 21 days before illness onset. - Family history:: not pertinent. Screenin:45 Abuse screen: Denies threats or abuse. Denies injuries from another. Nutritional ss screening: No deficits noted. Tuberculosis screening: Never had TB. Fall Risk None identified. Assessment: 12:45 General: Appears uncomfortable, Behavior is calm, cooperative. General: Pt believes he ss has a piece of metal in his L eye since last night after grinding a piece of metal. Pain: Complains of pain in left eye Pain currently is 4 out of 10 on a pain scale. Quality of pain is described as tender, Is continuous. Neuro: Level of Consciousness is awake, alert, obeys commands, Oriented to person, place, time, situation. Cardiovascular: Capillary refill < 3 seconds is brisk in bilateral fingers. Respiratory: Airway is patent Respiratory effort is even, unlabored, Respiratory pattern is regular, symmetrical. GI: No signs and/or symptoms were reported involving the gastrointestinal system. EENT: Eyes reddened sclera (L eye). Derm: Skin is intact, is healthy with good turgor, Skin is dry, Skin is pink, warm \T\ dry. normal. Musculoskeletal: Range of motion: intact in all extremities. Vital Signs: 12:41 BP 157 / 81; Pulse 84; Resp 15; Temp 98.1(TE); Pulse Ox 98% on R/A; Weight 117.93 kg; ss Height 5 ft. 10 in. (177.80 cm); Pain 4/10; 12:41 Body Mass Index 37.31 (117.93 kg, 177.80 cm) ED Course: 12:11 Patient arrived in ED. as 12:41 Triage completed. ss 12:41 Arm band placed on right wrist. ss 12:45 Patient has correct armband on for positive identification. Bed in low position. Call ss light in reach. 12:46 Anoop Joyce MD is Attending Physician. reece 13:59 Gisela Clemente, LEOBARDO is Primary Nurse. 14:18 Jarett Hubbard MD is Referral Physician. [facility] 14:30 Assist provider with eye exam of left eye. using ophthalmoscope. Patient did not have ss IV access during this emergency room visit. Administered Medications: 14:00 Drug: Tetracaine Drops 0.5 % 1 drops Route: Ophthalmic; Site: left eye; 14:21 Drug: Tobramycin Ointment (0.3 %) 1 application Route: Ophthalmic; Site: left eye; Outcome: 14:18 Discharge ordered by . [facility] 14:30 Discharged to home ambulatory. 14:30 Condition: good 14:30 Discharge instructions given to patient, family, Instructed on discharge instructions, follow up and referral plans. medication usage, Demonstrated understanding of instructions, follow-up care, medications, Prescriptions given X 1. 14:30 Patient left the ED. ss Signatures: Anoop Joyce MD MD cha Martinez, Amelia as Smirch, Shelby, LEOBARDO RN
--- NOTE | 2019-10-26 14:20 | EDPHYS ---
Physician Documentation [facility] Name: Catracho Motta Age: 43 yrs Sex: Male : 1975 Arrival Date: 10/26/2019 Time: 12:11 Bed 12 Private MD: ED Physician Anoop Joyce HPI: 10/26 13:01 This 43 yrs old Male presents to ER via Ambulatory with complaints of Foreign reece Body In Eye - metal. 13:01 The patient is experiencing pain, redness, The patient sustained Unknown. to the left reece eye. Onset: The symptoms/episode began/occurred last night. Duration: the symptoms are continuous. Aggravated by closing eye, opening eye, Alleviated by nothing. Associated signs and symptoms: Pertinent negatives:. Patient does not utilize any form of vision correction. Severity of symptoms: At their worst the symptoms were mild moderate in the emergency department the symptoms are unchanged. The patient has not experienced similar symptoms in the past. Historical: - Allergies: 12:41 No Known Allergies; ss - PMHx: 12:41 Anxiety; Arthritis; ss - PSHx: 12:41 None; ss - Immunization history:: Adult Immunizations up to date. - Social history:: Smoking status: Patient/guardian denies using tobacco. - Ebola Screening: : Patient denies exposure to infectious person Patient denies travel to an Ebola-affected area in the 21 days before illness onset. - Family history:: not pertinent. ROS: 13:01 Constitutional: Negative for fever, chills, and weight loss, ENT: Negative for injury, reece pain, and discharge, Neck: Negative for injury, pain, and swelling, Cardiovascular: Negative for chest pain, palpitations, and edema, Respiratory: Negative for shortness of breath, cough, wheezing, and pleuritic chest pain, Abdomen/GI: Negative for abdominal pain, nausea, vomiting, diarrhea, and constipation, Back: Negative for injury and pain, : Negative for injury, bleeding, discharge, and swelling, MS/Extremity: Negative for injury and deformity, Skin: Negative for injury, rash, and discoloration, Neuro: Negative for headache, weakness, numbness, tingling, and seizure, Psych: Negative for depression, anxiety, suicide ideation, homicidal ideation, and hallucinations, Allergy/Immunology: Negative for hives, rash, and allergies, Endocrine: Negative for neck swelling, polydipsia, polyuria, polyphagia, and marked weight changes, Hematologic/Lymphatic: Negative for swollen nodes, abnormal bleeding, and unusual bruising. 13:01 Eyes: Positive for matting, pain, redness, tearing. 13:01 ENT: Positive for Exam: 13:01 Constitutional: This is a well developed, well nourished patient who is awake, alert, reece and in no acute distress. Head/Face: Normocephalic, atraumatic. ENT: Nares patent. No nasal discharge, no septal abnormalities noted. Tympanic membranes are normal and external auditory canals are clear. Oropharynx with no redness, swelling, or masses, exudates, or evidence of obstruction, uvula midline. Mucous membranes moist. Neck: Trachea midline, no thyromegaly or masses palpated, and no cervical lymphadenopathy. Supple, full range of motion without nuchal rigidity, or vertebral point tenderness. No Meningismus. Chest/axilla: Normal chest wall appearance and motion. Nontender with no deformity. No lesions are appreciated. Cardiovascular: Regular rate and rhythm with a normal S1 and S2. No gallops, murmurs, or rubs. Normal PMI, no JVD. No pulse deficits. Respiratory: Lungs have equal breath sounds bilaterally, clear to auscultation and percussion. No rales, rhonchi or wheezes noted. No increased work of breathing, no retractions or nasal flaring. Abdomen/GI: Soft, non-tender, with normal bowel sounds. No distension or tympany. No guarding or rebound. No evidence of tenderness throughout. Back: No spinal tenderness. No costovertebral tenderness. Full range of motion. Skin: Warm, dry with normal turgor. Normal color with no rashes, no lesions, and no evidence of cellulitis. MS/ Extremity: Pulses equal, no cyanosis. Neurovascular intact. Full, normal range of motion. Neuro: Awake and alert, GCS 15, oriented to person, place, time, and situation. Cranial nerves II-XII grossly intact. Motor strength 5/5 in all extremities. Sensory grossly intact. Cerebellar exam normal. Normal gait. Psych: Awake, alert, with orientation to person, place and time. Behavior, mood, and affect are within normal limits. 13:01 Eyes: Periorbital structures: appear normal, no acute changes, Pupils: no acute changes, equal, round, and reactive to light and accomodation, Extraocular movements: intact throughout, Conjunctiva: injected, Corneas: are normal, Sclera: no appreciated abnormality, no acute changes. Vital Signs: 12:41 BP 157 / 81; Pulse 84; Resp 15; Temp 98.1(TE); Pulse Ox 98% on R/A; Weight 117.93 kg; ss Height 5 ft. 10 in. (177.80 cm); Pain 4/10; 12:41 Body Mass Index 37.31 (117.93 kg, 177.80 cm) ss MDM: 12:46 Patient medically screened. [facility] 13:06 Data reviewed: vital signs, nurses notes. [facility] 10/26 13:06 Order name: Eye Tray; Complete Time: 13:20 [facility] Administered Medications: 14:00 Drug: Tetracaine Drops 0.5 % 1 drops Route: Ophthalmic; Site: left eye; ss 14:21 Drug: Tobramycin Ointment (0.3 %) 1 application Route: Ophthalmic; Site: left eye; ss Disposition: 10/26/19 14:18 Discharged to Home. Impression: Ocular pain, left eye. - Condition is Stable. - Discharge Instructions: Eye Foreign Body, Pain Without a Known Cause. - Prescriptions for Tobrex 0.3 % Ophthalmic ointment - apply 1 inch by OPHTHALMIC route 2-3 times daily; 3.5 gram. Tylenol- Codeine #3 300-30 mg Oral Tablet - take 2 tablets by ORAL route every 6 hours As needed; 20 tablet. - Medication Reconciliation Form, Thank You Letter, Antibiotic Education, Prescription Opioid Use form. - Follow up: Jarett Hubbard MD; When: Tomorrow; Reason: Recheck today's complaints, Continuance of care, Re-evaluation by your physician. - Problem is new. - Symptoms have improved. Signatures: Anoop Joyce MD MD cha Smirch, Shelby RN RN ss Corrections: (The following items were deleted from the chart) 14:30 14:18 10/26/2019 14:18 Discharged to Home. Impression: Ocular pain, left eye. Condition ss is Stable. Forms are Medication Reconciliation Form, Thank You Letter, Antibiotic Education, Prescription Opioid Use. Follow up: Jarett Hubbard; When: Tomorrow; Reason: Recheck today's complaints, Continuance of care, Re-evaluation by your physician. Problem is new. Symptoms have improved. reece
[2019-10-26] MEDS ORDERED: TOBRAMYCIN SULF 0.3% OPTH OINT ONE (14:23)
[2019-10-26 14:49] VITALS: BP 157/81; TEMP 98.1; O2SAT 98
== END 2019-10-26 14:30 | disposition home or self-care (01) ==
LOC: ER 12:10
DX: H57.12 Ocular pain, left eye (principal)
CPT/HCPCS: 99283

== ENCOUNTER 2020-04-02 07:26 | Day surgery (SDC) | payer BC ==
[2020-03-29 09:14] LABS: Absolute Lymphocytes (CBC) 1.7 K/uL (0.7-4.9); Basophils % 0.7 % (0-1.3); Hematocrit 47.1 % (39.6-49.0); Lymphocytes % 23.2 % (15.3-44.8); MPV 6.9 fL (7.6-11.3); RBC Red Blood Cell Count 5.61 M/uL (4.33-5.43)
--- NOTE | 2020-03-29 09:19 | RAD REPORT ---
EXAM DESCRIPTION: RAD - Chest Pa And Lat (2 Views) - 03/29/2020 8:53 am CLINICAL HISTORY: preop, patient pending carpal tunnel surgery left wrist COMPARISON: February 2018 chest exam TECHNIQUE: Frontal and lateral views of the chest were obtained. FINDINGS: The lungs are clear. Heart size is normal and central vasculature is within normal limit s. No pleural effusion or pneumothorax seen. No acute bony finding noted. No aortic abnormality. No significant change from comparison exam. IMPRESSION: No acute cardiopulmonary process.
[2020-03-29 09:27] LABS: Potassium 4.2 mmol/L (3.5-5.1)
[2020-03-29 09:30] LABS: Protime INR 0.88
--- OUTSIDE RECORDS SUMMARY | 2020-04-02 07:29 | XMS REPORT | Continuity of Care Document ---
:1975 Author Organization [facility] t Address [address] [place] [address] Care Team Providers Name Role Phone Unavailable Unavailable Unavailable Problems Condition Condition Condition Status Onset Resolution Last Treating Co mments Source Name Details Category Date Date Treatment Clinician Date Carpal Carpal Problem Active [facility] tunnel tunnel [facility] - syndrome, syndrome, Gunnar luz left left [facility] ent Clinics Carpal Carpal Problem Active [facility] tunnel tunnel [facility] - syndrome, syndrome, Gunnar luz right right [facility] Allergies, Adverse Reactions, Alerts This patient has no known allergies or adverse reactions. Medications Ordered Filled Start Stop Current Ordering Indication Dosage Frequency Signature Comments Components Source Medication Medication Date Date Medication? Clinician (SIG) Name Name Tylenol Tylenol Yes Alvin [address] [facility] with with 03-30 Blackman as needed [facility] - Codeine #3 Codeine #3 00:00: M emoria 00 [facility] Procedures This patient has no known procedures. Encounters Start End Encounter Admission Attending Care Care Encounter Source Date/Time Date/Time Type Type Clinicians Facility Department ID 2020-04-01 2020-04-01 [facility] [id number] [facility] 16:18:00 16:18[facility] Clin[facility] 2020-03-30 2020-03-30 [facility] [id number] [facility] 09:05:00 09:05:00 t [facility] Clinics 2020-03-15 2020-03-15 [facility] [id number] [facility] 10:30:00 10:30:00 t [facility] Clinics 2020-02-26 2020-02-26 Outpatient Radha Sotelo [id number] [facility] 09:42:00 09:42:00 t [facility] 2020-02-24 2020-02-24 Outpatient Radha Sotelo [id number] [facility] [address] 11:54:00 11:54:00 t [facility] ent Clinics 2020-02-02 2020-02-02 Outpatient Radha Sotelo [id number] [facility] 08:00:00 08:00:00 t [facility] ent Clinics Results This patient has no known results.
--- OUTSIDE RECORDS SUMMARY | 2020-04-02 07:29 | XMS REPORT ---
:1975 Author Organization [employer] Care Team Providers Name Role Phone Alvin Blackman Provider Role Unavailable Allergies, Adverse Reactions, Alerts Substance Reaction Event Type N.K.D.A. Info Not Available Non Drug Allergy Problems Problem Type Condition Code Onset Dates Condition Statu s Problem Carpal tunnel syndrome, left G56.02 Active Problem Carpal tunnel syndrome, right G56.01 Active Assessment Carpal tunnel syndrome, right G56.01 Active Assessment Carpal tunnel syndrome, left G56.02 Active Assessment Hand pain, left M79.642 Active Assessment Pain in joint of right hand M25.541 Active Medications Medication Code System Code Instructions Start End Date Status Dos age Date Testosterone [facility] 07324-393 Active not defin ed Cypionate 0-01 Amphetamine-Dextr [facility] 19420-803 Active not defined oamphetamine 5-01 Clonazepam [facility] 14103-984 Active not defined 8-96 Sertraline HCl [facility] 91126-749 Active not def ined 1-02 Results No Known Results Summary Purpose [employer] Submission
--- OUTSIDE RECORDS SUMMARY | 2020-04-02 07:30 | XMS REPORT ---
:1975 Author Organization [employer] Care Team Providers Name Role Phone Alvin Blackman Provider Role Unavailable Allergies, Adverse Reactions, Alerts Substance Reaction Event Type N.K.D.A. Info Not Available Non Drug Allergy Problems Problem Type Condition Code Onset Dates Condition Statu s Assessment Tenosynovitis of wrist M65.9 Activ e Problem Carpal tunnel syndrome, left G56.02 Active Problem Carpal tunnel syndrome, right G56.01 Active Assessment Hand pain, left M79.642 Active Assessment Pain in joint of right hand M25.541 Active Assessment Carpal tunnel syndrome, right G56.01 Active Assessment Carpal tunnel syndrome, left G56.02 Active Medications Medication Code System Code Instructions Start End Date Status Dos age Date Sertraline HCl [facility] 88185-294 Active not def ined 4-61 Amphetamine-Dextr [facility] 67376-622 Active not defined oamphetamine 5-01 Clonazepam [facility] 31649-846 Active not defined 8-96 Testosterone [facility] 28897-222 Active not defin ed Cypionate 0-01 Results No Known Results Summary Purpose [employer] Submission
--- OUTSIDE RECORDS SUMMARY | 2020-04-02 07:30 | XMS REPORT ---
:1975 Author Organization [employer] Care Team Providers Name Role Phone Blackman, Alvin Provider Role Unavailable Allergies No Known Allergies Problems Problem Type Condition Code Onset Dates Condition Statu s Problem Carpal tunnel syndrome, left G56.02 Active Problem Carpal tunnel syndrome, right G56.01 Active Medications No Known Medications Results No Known Results Summary Purpose [employer] Submission
--- OUTSIDE RECORDS SUMMARY | 2020-04-02 07:30 | XMS REPORT ---
:1975 Author Organization [employer] Care Team Providers Name Role Phone Alvin Blackman Provider Role Unavailable Allergies No Known Allergies Problems Problem Type Condition Code Onset Dates Condition Statu s Problem Carpal tunnel syndrome, left G56.02 Active Problem Carpal tunnel syndrome, right G56.01 Active Medications Medication Code Code Instructions Start End Date Status Dosage System Date Tylenol with NDC [id number] 300-30 MG Orally March 30, e 1 tablet Codeine #3 every 6 hrs PRN 2019 as ne eded Pain Results No Known Results Summary Purpose [employer] Submission
[2020-04-02] MEDS ORDERED: LIDOCAINE 2% IV ONE ×2 (07:45)
[2020-04-02] MEDS ORDERED: NA CHLORIDE 0.9% IV ONE ×2 (07:45)
[2020-04-02] MEDS ORDERED: Ringers Lactate 1,000 ML IV ONE (07:57)
[2020-04-02] MEDS ORDERED: CEFAZOLIN/SWI 1gm 1 GM/10 ML SYR ONE (07:57)
[2020-04-02] MEDS ORDERED: BUPIVACAINE 0.25% PF 10 ML VIAL ONE (07:58)
[2020-04-02] MEDS ORDERED: FENTANYL CITR 100 MCG/2 ML ONE (08:20)
[2020-04-02] MEDS ORDERED: propofoL 200 MG/20 ML VIAL IV ONE (08:20)
[2020-04-02] MEDS ORDERED: LIDOCAINE 1% MPF 5 ML VIAL ONE (08:20)
[2020-04-02] MEDS ORDERED: MIDAZOLAM HCL 2 MG/2 ML INJ ONE (08:20)
[2020-04-02] MEDS ORDERED: KETOROLAC 30 MG/ML INJ ONE (08:54)
[2020-04-02] MEDS ORDERED: dexAMETHasone 10 MG/ML VIAL ONE (08:54)
[2020-04-02] MEDS ORDERED: ONDANSETRON 4 MG/2 ML VIAL ONE (09:19)
--- NOTE | 2020-04-02 09:23 | P.BOP ---
Preoperative diagnosis: left carpal tunnel syndrome Postoperative diagnosis: same Primary procedure: left open carpal tunnel release Technical Communicator: NONE,NONE Estimated blood loss: <5 cc Specimen: none Findings: see dictation Anesthesia: General Complications: None Implants: none Fluids & blood products: per anesthesia record; TT: 21 mins @ 250 mmHg Transferred to: Recovery Room Condition: Good
[2020-04-02] MEDS ORDERED: CODEINE 30MG/APAP 300MG TAB ONE (10:32)
[2020-04-02 10:56] VITALS: BP 140/85; TEMP 96.4; O2SAT 100
--- NOTE | 2020-04-03 01:52 | OP ---
Date of Procedure: 04/02/2020 Surgeon: Alvin Blackman MD Preoperative Diagnosis: Left carpal tunnel syndrome. Postoperative Diagnosis: Left carpal tunnel syndrome. Procedure Performed: Left open carpal tunnel release. Anesthesia: General LMA. Fluids: Per Anesthesia record. Estimated Blood Loss: Less than 5 mL. Complications: None. Indication For Procedure: Catracho is a 44-year-old male presented today to my clinic with signs, sympt oms, and EMG findings consistent with severe carpal tunnel syndrome. The patient failed conservative treatment measures. I discussed with the patient and his at length risks and benefits associat ed with operative and nonoperative treatment. They expressed understanding and elected to proceed [facility] operative treatment. Description Of Procedure: After informed consent was obtained, the patient was identified in the pre operative holding area. The left upper extremity was marked. The patient was then brought back to [facility] operating room, transferred to the operating table in supine fashion, placed under general LMA ane sthesia. The left upper extremity was then prepped and draped in usual sterile fashion. A time-out was initiated. The correct patient and procedure were confirmed and identified. The patient receive d his preoperative prophylactic antibiotics. The left upper extremity was exsanguinated and tourniqu et was inflated to 250 mmHg. Approximately, a 3 cm longitudinal incision was made just ulnar to the thenar crease in the palm. Dissection was taken down to the palmar fascia. A [place] elevator was galileo bren just deep to the palmar fascia to protect the median nerve at all times. A 15 blade was then use d to release the palmar fascia and transverse carpal ligament with [place] elevator protecting the medi an nerve at all times. After completion of the release, a pair of blunt and Metzenbaum were then galileo bren to release any remaining fascial bands, remaining ligament over the median nerve. It is superfic ially all times to avoid trauma to the median nerve. After complete release of the carpal ligament a s well as fascial bands was completed, the wound was then irrigated thoroughly with normal saline. [facility] skin was approximated with a 5-0 Prolene. Sterile dressings were applied. The patient was awaken ed and transferred to the PACU in stable condition. Postoperative Plan: He will follow up in my clinic 1 week for suture removal. He will be nonweightb earing of his left hand. CV/MODL Voice ID: [id number] Report ID: [id number]
== END 2020-04-02 10:42 | disposition home health service (06) ==
LOC: OR 07:26
PROVIDERS: ATTEND Orthopaedic Surgery Sports Medicine
PROC: 01N50ZZ Release Median Nerve, Open Approach (ICD-10-PCS; principal; 2020-04-02 08:30)
DX: G56.02 Carpal tunnel syndrome, left upper limb (principal); Z11.59 Encounter for screening for other viral diseases
CPT/HCPCS: 64721; 93005; 85025; 80048; 36415; 85610; 85730; 71046; J2704; J2250; J3010; J1100; J0690; J7120; J2405

== ENCOUNTER 2021-01-31 20:40 | Emergency (ER) | payer BC ==
--- OUTSIDE RECORDS SUMMARY | 2021-01-31 20:42 | XMS REPORT | Continuity of Care Document ---
:1975 Author Organization [facility] t Address [address] [place] [address] Care Team Providers Name Role Phone Naye Sanford DO Attending Clinician Doctor Unassigned, Name Attending Clinician Unavailable Problems Condition Condition Condition Status Onset Resolution Last Treating Co mments Source Name Details Category Date Date Treatment Clinician Date Carpal Carpal Diagnosis Active [facility] tunnel tunnel [facility], syndrome, [facility]gn[facility] Carpal Carpal Problem Active [facility] tunnel tunnel [facility] - syndrome, syndrome, Gunnar luz right right [facility] Hand pain, Hand pain, Diagnosis Active [facility] left left [facility] Allergies, Adverse Reactions, Alerts This patient has no known allergies or adverse reactions. Medications Ordered Filled Start Stop Current Ordering Indication Dosage Frequency Signature Comments Components Source Medication Medication Date Date Medication? Clinician (SIG) Name Name Gabapentin Gabapentin Yes Alvin [address] [facility] 7[facility]27 [facility] Clonazepam Clonazepam Yes Alvin not [facility] defined [facility] Amphetamine Amphetamine Yes Alvin not [facility] -Dextroamph -Dextroamph [facility] defined [facility] - etamine etamine [facility] Testosteron Testosteron Yes Alvin not [facility] e Cypionate e Cypionate [facility] defined [facility] Sertraline Sertraline Yes Alvin not [facility] HCl HCl [facility] defined [facility] Meloxicam Meloxicam Yes Alvin TAKE [address] [facility] TABLET BY [facility] - [facility] DAILY [facility] Procedures This patient has no known procedures. Encounters Start End Encounter Admission Attending Care Care Encounter Source Date/Time Date/Time Type Type Clinicians Facility Department ID 2020-12-13 2020-12-13 Emergency Juvenal, [facility] [id number] 09:00:00 09:40:00 Mere Nick [id number] [place] [id number] [place] [id number] 2020-12-13 2020-12-13 Orders Doctor FAVIOLA [id number] 00:00:00 00:00:00 Only Unassigned, JEM [id number] [place] [facility] [id number] 2020-07-07 2020-07-07 Outpatient Radha Garciat [id number] [facility] 16:34:00 16:34:00 [facility] 2020-07-07 2020-07-07 [facility] [id number] [facility] 15:00:00 15:00:00 t [facility] 2020-05-31 2020-05-31 Outpatient [facility] Garciat [id number] [facility] 13:12:00 13:12:00 t [facility] 2020-05-27 2020-05-27 [facility] [id number] [facility] 08:00:00 08:00:00 t [facility] 2020-05-24 2020-05-24 [facility] [id number] [address] 09:47:00 09:47:00 t [facility] 2020-05-24 2020-05-24 [place] [place] [id number] [address] 08:42:00 08:42:00 t [facility] 2020-05-04 2020-05-04 [facility] [id number] [facility] 09:18:00 09:18:00 t [facility] 2020-05-04 2020-05-04 [place] [id number] [address] 08:20:00 08:20:00 t [facility] 2020-05-03 2020-05-03 [facility] [id number] 16:03:00 16:03:00 t [facility] 2020-04-27 2020-04-27 [place] [id number] [facility] [address] 10:30:00 10:30:00 t [facility] 2020-04-12 2020-04-12 [place] [id number] [address] 11:00:00 11:00:00 t [facility] 2020-04-08 2020-04-08 [facility] [id number] [facility] 08:00:00 08:00:00 t [facility] 2020-04-01 2020-04-01 [facility] [id number] [address] 16:18:00 16:18:00 t [facility] 2020-03-30 2020-03-30 [facility] [id number] [facility] 09:05:00 09:05:00 t [facility] 2020-03-15 2020-03-15 Outpatient Radha Sotelo [id number] [facility] 10:30:00 10:30:00 t [facility] 2020-02-26 2020-02-26 Outpatient Radha Sotelo [id number] 09:42:00 09:42:00 t [facility] 2020-02-24 2020-02-24 Outpatient Radha Sotelo [id number] [address] 11:54:00 11:54:00 t [facility] 2020-02-02 2020-02-02 Outpatient Radha Sotelo [id number] [facility] 08:00:00 08:00:00 t [facility] Results This patient has no known results.
--- NOTE | 2021-01-31 23:25 | ER ---
Nurse's Notes [facility] Name: Catracho Motta Age: 45 yrs Sex: Male : 1975 Arrival Date: 01/31/2021 Time: 20:57 Bed Waiting Private MD: Diagnosis: Presentation: 01/31 21:09 Chief complaint: Patient states: Possible FB to R eye since earlier today. Was working ll1 on his car just before this happened. Coronavirus screen: Client denies travel out of the [place] in the last 14 days. At this time, the client does not indicate any symptoms associated with coronavirus-19. Ebola Screen: Patient denies travel to an Ebola-affected area in the 21 days before illness onset. Initial Sepsis Screen: Does the patient meet any 2 criteria? No. Patient's initial sepsis screen is negative. Does the patient have a suspected source of infection? Yes: Other: eye irritation. Risk Assessment: Do you want to hurt yourself or someone else? Patient reports no desire to harm self or others. Onset of symptoms was January 31, 2021. 21:09 Method Of Arrival: Ambulatory ll1 21:09 Acuity: JUANA 4 ll1 Historical: - Allergies: 21:10 No Known Allergies; ll1 - PMHx: 21:10 Anxiety; Arthritis; ll1 - PSHx: 21:10 None; ll1 - Immunization history:: Flu vaccine is not up to date. - Social history:: Smoking status: Patient denies any tobacco usage or history of. Vital Signs: 21:09 BP 139 / 89; Pulse 82; Resp 17; Temp 97.7; Pulse Ox 100% ; Weight 115.21 kg; Height 5 ll1 ft. 10 in. (177.80 cm); Pain 6/10; 21:09 Body Mass Index 36.44 (115.21 kg, 177.80 cm) ll1 ED Course: 20:57 Patient arrived in ED. bb 21:10 Triage completed. ll1 21:11 Arm band placed on Patient notified of wait time. ll1 22:30 Patient's name was called from ER lobby. No response. bb 23:24 Patient's name was called from ER lobby. No response. Unable to locate patient. Will bb disposition as left without being seen by a provider. Administered Medications: No medications were administered Outcome: 23:25 Patient left the ED. bb Signatures: Eva Riggs RN RN bb Skyla Aquino RN RN ll1
== END 2021-01-31 23:25 | disposition left against medical advice (07) ==
LOC: ER 20:40
DX: H57.11 Ocular pain, right eye (principal); F41.9 Anxiety disorder, unspecified; M19.90 Unspecified osteoarthritis, unspecified site; Z53.21 Procedure and treatment not carried out due to patient leaving prior to being seen by health care provider
CPT/HCPCS: 99281

== ENCOUNTER 2021-02-23 02:12 | Emergency (ER) | payer BC ==
--- OUTSIDE RECORDS SUMMARY | 2021-02-23 02:14 | XMS REPORT | Continuity of Care Document ---
:1975 Author Organization [facility] t Address [address] [place] [address] Care Team Providers Name Role Phone Naye Sanford DO Attending Clinician Doctor Unassigned, Name Attending Clinician Unavailable Problems This patient has no known problems. Allergies, Adverse Reactions, Alerts This patient has [...] TABLET BY [facility] DAILY l [facility] ent Clin[facility] Procedures This patient has no known procedures. Encounters Start End Encounter Admission Attending Care Care Encounter Source Date/Time Date/Time Type Type Clinicians Facility Department ID 2021-02-04 2021-02-04 Outpatient [facility] [id number] [facility]00 [facility] 2020-12-13 2020-12-13 Emergency Juvenal, [facility] [id number] 09:00:00 09:40:00 Mere Naye Nick [id number] [place] [id number] [place] [id number] 2020-12-13 2020-12-13 Orders Doctor FAVIOLA [id number] 00:00:00 00:00:00 Only Unassigned, JEM [id number] [place] [facility] [id number] 2020-07-07 2020-07-07 Outpatient Radha Sotelo [id number] [facility] 16:34:00 16:34:00 t [facility] 2020-07-07 2020-07-07 Outpatient [facility] Garciat [id number] [facility] 15:00:00 15:00:00 t [facility] 2020-05-31 2020-05-31 Outpatient [facility] Garciat [id number] [facility] 13:12:00 13:12:00 t [facility] 2020-05-27 2020-05-27 [facility] [place] [id number] [address] 08:00:00 08:00:00 t [facility] 2020-05-24 2020-05-24 Outpatient [facility] Radhat [id number] 09:47:00 09:47:00 t [facility] and [facility] 2020-05-24 2020-05-24 Outpatient [facility] a[facility]dhat [id number] 08:42:00 08:42:00 t [facility] and [facility] 2020-05-04 2020-05-04 [facility] [id number] 09:18:00 09:18:00 t [facility] 2020-05-04 2020-05-04 [facility] [id number] 08:20:00 08:20:00 t [facility] 2020-05-03 2020-05-03 [facility] [id number] [facility] [address] 16:03:00 16:03:00 t [facility] and [facility] 2020-04-27 2020-04-27 [facility] [id number] [address] 10:30:00 10:30:00 t [facility] and [facility] 2020-04-12 2020-04-12 [facility] [id number] 11:00:00 11:00:00 t [facility] and [facility] 2020-04-08 2020-04-08 [facility] [id number] 08:00:00 08:00:00 t [facility] 2020-04-01 2020-04-01 [facility] [id number] 16:18:00 16:18:00 t Bone Bone and [facility] 2020-03-30 2020-03-30 [facility] [id number] 09:05:00 09:05:00 t Bone [facility] and [facility] 2020-03-15 2020-03-15 [facility] [id number] 10:30:00 10:30:00 t [facility] and [facility] Clin[facility] 2020-02-26 2020-02-26 Outpatient Radha Sotelo [id number] [facility] 09:42:00 09:42:00 t [facility] Clin[facility] 2020-02-24 2020-02-24 Outpatient Radha Sotelo [id number] [facility] 11:54:00 11:54:00 t [facility] and [facility] ent Clinics 2020-02-02 2020-02-02 Outpatient Radha Sotelo [id number] [facility] 08:00:00 08:00:00 t Bone [facility] and [facility] Clinics Results This patient has no known results.
[2021-02-23] MEDS ORDERED: NA CHLORIDE 0.9% 1,000 ML ONE (03:02)
[2021-02-23] MEDS ORDERED: ONDANSETRON 4 MG/2 ML VIAL ONE (03:02)
[2021-02-23 03:03] LABS: Absolute Lymphocytes (CBC) 0.6 K/uL (0.7-4.9); Basophils % 0.2 % (0-1.3); Hematocrit 45.5 % (39.6-49.0); Lymphocytes % 6.8 % (15.3-44.8); MPV 6.9 fL (7.6-11.3); RBC Red Blood Cell Count 5.42 M/uL (4.33-5.43)
[2021-02-23 03:13] LABS: ALT/SGPT 27 U/L (12-78); AST/SGOT 9 U/L (15-37); Albumin 3.8 g/dL (3.4-5.0); Alkaline Phosphatase 89 U/L (45-117); BUN Blood Urea Nitrogen 16 mg/dL (7-18); Bicarbonate 25 mmol/L (21-32); Bilirubin Direct 0.2 mg/dL (0-0.2); Bilirubin Total 0.7 mg/dL (0.2-1.0); Glucose Level 154 mg/dL (74-106); Lipase 61 U/L (73-393); Potassium 3.6 mmol/L (3.5-5.1); Protein, Total 7.1 g/dL (6.4-8.2); Sodium Level 136 mmol/L (136-145)
--- NOTE | 2021-02-23 04:17 | EDPHYS ---
Physician Documentation [facility] Name: Catracho Motta Age: 45 yrs Sex: Male : 1975 Arrival Date: 02/23/2021 Time: 02:15 Bed 7 Private MD: ED Physician Michael Ahn HPI: 02/23 02:50 This 45 yrs old Male presents to ER via Ambulatory with complaints of rn nausea/vomiting/diarrhea. 02:50 The patient presents to the emergency department with nausea, vomiting, diarrhea. rn Onset: The symptoms/episode began/occurred yesterday. Possible causes: unknown. The symptoms are aggravated by nothing. The symptoms are alleviated by nothing. Associated signs and symptoms: Pertinent positives: diarrhea, nausea, vomiting, Pertinent negatives: fever, GI bleeding. Severity of symptoms: At their worst the symptoms were moderate in the emergency department the symptoms are unchanged. The patient has not experienced similar symptoms in the past. The patient has not recently seen a physician. Historical: - Allergies: 02:32 No Known Allergies; ea - Home Meds: 02:32 sertraline Oral [Active]; Klonopin Oral [Active]; Clonazepam Oral [Active]; ea - PMHx: 02:32 Arthritis; Anxiety; ea - PSHx: 02:32 None; ea - Immunization history:: Adult Immunizations up to date. - Social history:: Smoking status: Patient denies any tobacco usage or history of. - Family history:: not pertinent. - Hospitalizations: : No recent hospitalization is reported. ROS: 02:50 Constitutional: Negative for fever, chills, and weight loss, Eyes: Negative for injury, rn pain, redness, and discharge, ENT: Negative for injury, pain, and discharge, Neck: Negative for injury, pain, and swelling, Cardiovascular: Negative for chest pain, palpitations, and edema, Respiratory: Negative for shortness of breath, cough, wheezing, and pleuritic chest pain, Abdomen/GI: + abd cramping, + nausea/vomiting/diarrhea, negative for blood MS/Extremity: Negative for injury and deformity, Skin: Negative for injury, rash, and discoloration, Neuro: Negative for headache, numbness, tingling, and seizure. Exam: 02:50 Constitutional: This is a well developed, well nourished patient who is awake, alert, rn and in no acute distress. Head/Face: Normocephalic, atraumatic. ENT: dry MM Cardiovascular: Regular rate and rhythm. No pulse deficits. Respiratory: No increased work of breathing, no retractions or nasal flaring. Abdomen/GI: soft, non-tender, non-distended Skin: Warm, dry MS/ Extremity: Pulses equal, no cyanosis. Neurovascular intact. Full, normal range of motion. Equal circumference. Neuro: Awake and alert, GCS 15 Vital Signs: 02:27 BP 154 / 91; Pulse 95; Resp 18; Temp 97.8; Pulse Ox 95% ; Weight 117.03 kg; Height 5 ea ft. 10 in. (177.80 cm); 04:00 BP 134 / 78; Pulse 80; Resp 18; Temp 98; Pulse Ox 98% ; ea 02:27 Body Mass Index 37.02 (117.03 kg, 177.80 cm) ea MDM: 02:22 Patient medically screened. rn 04:15 Differential diagnosis: Nonspecific abd pain, appendicitis, diverticulitis, viral rn gastroenteritis, gastroenteritis. Data reviewed: vital signs, nurses notes, lab test result(s), radiologic studies, CT scan, and as a result, I will discharge patient. Counseling: I had a detailed discussion with the patient and/or guardian regarding: the historical points, exam findings, and any diagnostic results supporting the discharge/admit diagnosis, lab results, radiology results, the need for outpatient follow up, to return to the emergency department if symptoms worsen or persist or if there are any questions or concerns that arise at home. Response to treatment: the patient's symptoms have markedly improved after treatment, and as a result, I will discharge patient. Special discussion: Based on the patient's Hx, exam, and Dx evaluation, there is no indication for emergent surgery or inpatient Tx. It is understood by the patient/guardian that if the Sx's persist or worsen they need to return immediately for re-evaluation. I discussed with the patient/guardian in detail that at this point there is no indication for admission to the hospital. It is understood, however, that if the symptoms persist or worsen the patient needs to return immediately for re-evaluation. 04:15 ED course: CT consistent with enteritis, normal appendix, consistent with story of rn vomiting and diarrhea. Will dc home with prn zofran and return precautions.. 02/23 02:45 Order name: Basic Metabolic Panel; Complete Time: 03:19 EDMS 02/23 02:45 Order name: Liver (Hepatic) Function; Complete Time: 03:19 EDMS 02/23 02:45 Order name: Abdomen EDMS 02/23 02:45 Order name: Lipase; Complete Time: 03:19 EDMS 02/23 02:45 Order name: CBC with Automated Diff EDMS 02/23 03:40 Order name: Manual Differential EDMS 02/23 02:33 Order name: IV Saline Lock; Complete Time: 02:46 rn 02/23 02:33 Order name: Labs collected and sent; Complete Time: 02:46 rn Administered Medications: 02:46 Drug: Zofran (Ondansetron) 4 mg Route: IVP; Site: right antecubital; rv 04:27 Follow up: Response: No adverse reaction ea 02:46 Drug: NS 0.9% 1000 ml Route: IV; Rate: 1000 ml; Site: right antecubital; rv 04:20 Follow up: Response: No adverse reaction; IV Status: Completed infusion; IV Intake: ea 700ml 04:27 Drug: LoMOTIL (diphenoxylate-atropine) 2 tabs Route: PO; ea 04:27 Follow up: Response: Medication administered at discharge. ea Disposition: 02/23/21 04:16 Discharged to Home. Impression: Vomiting, unspecified, Diarrhea, unspecified. - Condition is Stable. - Discharge Instructions: Diarrhea, Adult, Nausea and Vomiting, Adult, Viral Gastroenteritis, Adult. - Prescriptions for Zofran ODT 4 mg Oral tablet,disintegrating - place 1 tablet by TRANSLINGUAL route every 8 hours As needed; 20 tablet. - Medication Reconciliation Form, Thank You Letter, Antibiotic Education, Prescription Opioid Use form. - Follow up: Private Physician; When: As needed; Reason: Recheck today's complaints, Re-evaluation by your physician. - Problem is new. - Symptoms have improved. Signatures: Dispatcher [employer] EDMS Michael Ahn MD MD rn Antunez, Elena RN Yogi Durant ea RN RN rv Corrections: (The following items were deleted from the chart) 03:10 03:10 Abdomen Pelvis W Con+CT.RAD.BRZ ordered. EDNC EDMS 04:29 04:16 02/23/2021 04:16 Discharged to Home. Impression: Vomiting, unspecified; Diarrhea, ea unspecified. Condition is Stable. Forms are Medication Reconciliation Form, Thank You Letter, Antibiotic Education, Prescription Opioid Use. Follow up: Private Physician; When: As needed; Reason: Recheck today's complaints, Re-evaluation by your physician. Problem is new. Symptoms have improved. rn
--- NOTE | 2021-02-23 04:17 | ER ---
Nurse's Notes [facility] Name: Catracho Motta Age: 45 yrs Sex: Male : 1975 Arrival Date: 02/23/2021 Time: 02:15 Bed 7 Private MD: Diagnosis: Vomiting, unspecified;Diarrhea, unspecified Presentation: 02/23 02:27 Chief complaint: Patient states: Reports he started having n/v/d yesterday morning. Pt ea reports he has not had much appetite and has only been able to keep some fluids down. Coronavirus screen: At this time, the client does not indicate any symptoms associated with coronavirus-19. Ebola Screen: No symptoms or risks identified at this time. Initial Sepsis Screen: Does the patient meet any 2 criteria? No. Patient's initial sepsis screen is negative. Does the patient have a suspected source of infection? No. Patient's initial sepsis screen is negative. Risk Assessment: Do you want to hurt yourself or someone else? Patient reports no desire to harm self or others. Onset of symptoms was February 23, 2021. 02:27 Method Of Arrival: Ambulatory ea 02:27 Acuity: JUANA 3 ea Historical: - Allergies: 02:32 No Known Allergies; ea - Home Meds: 02:32 sertraline Oral [Active]; Klonopin Oral [Active]; Clonazepam Oral [Active]; ea - PMHx: 02:32 Arthritis; Anxiety; ea - PSHx: 02:32 None; ea - Immunization history:: Adult Immunizations up to date. - Social history:: Smoking status: Patient denies any tobacco usage or history of. - Family history:: not pertinent. - Hospitalizations: : No recent hospitalization is reported. Screenin:29 Abuse screen: Denies threats or abuse. Nutritional screening: No deficits noted. ea Tuberculosis screening: No symptoms or risk factors identified. Fall Risk None identified. Assessment: 02:30 General: Appears in no apparent distress. Behavior is calm, cooperative, appropriate ea for age. Pain: Complains of pain in abdomen. Neuro: Level of Consciousness is awake, alert, obeys commands, Oriented to person, place, time. Respiratory: Airway is patent Respiratory effort is even, unlabored, Respiratory pattern is regular, symmetrical. GI: Abdomen is non-distended, Reports lower abdominal pain, upper abdominal pain, diarrhea, nausea, vomiting. 02:46 GI: Bowel sounds present X 4 quads. Abd is soft and non tender X 4 quads. rv 03:26 Reassessment: Patient and/or family updated on plan of care and expected duration. Pain ea level reassessed. Patient is alert, oriented x 3, equal unlabored respirations, skin warm/dry/pink. Pt taken to CT. 04:28 Reassessment: Patient and/or family updated on plan of care and expected duration. Pain ea level reassessed. Patient is alert, oriented x 3, equal unlabored respirations, skin warm/dry/pink. Discharge instruction given to patient verbalized the understanding of instruction. Pt left ED ambulatory tolerating well. Vital Signs: 02:27 BP 154 / 91; Pulse 95; Resp 18; Temp 97.8; Pulse Ox 95% ; Weight 117.03 kg; Height 5 ea ft. 10 in. (177.80 cm); 04:00 BP 134 / 78; Pulse 80; Resp 18; Temp 98; Pulse Ox 98% ; ea 02:27 Body Mass Index 37.02 (117.03 kg, 177.80 cm) ea ED Course: 02:15 Patient arrived in ED. ag3 02:21 Michael Ahn MD is Attending Physician. rn 02:27 Keyona Mustafa, LEOBARDO is Primary Nurse. ea 02:29 Triage completed. ea 02:30 Patient has correct armband on for positive identification. Bed in low position. Call ea light in reach. Side rails up X2. 02:30 Arm band placed on right wrist. Patient placed in an exam room, on a stretcher, on ea pulse oximetry. 02:40 Initial lab(s) drawn, by me, sent to lab. Inserted saline lock: 20 gauge in right rv antecubital area, using aseptic technique. Blood collected. 03:49 Abdomen In Process Unspecified. EDMS 04:27 No provider procedures requiring assistance completed. IV discontinued, intact, ea bleeding controlled, No redness/swelling at site. Pressure dressing applied. Administered Medications: 02:46 Drug: Zofran (Ondansetron) 4 mg Route: IVP; Site: right antecubital; rv 04:27 Follow up: Response: No adverse reaction ea 02:46 Drug: NS 0.9% 1000 ml Route: IV; Rate: 1000 ml; Site: right antecubital; rv 04:20 Follow up: Response: No adverse reaction; IV Status: Completed infusion; IV Intake: ea 700ml 04:27 Drug: LoMOTIL (diphenoxylate-atropine) 2 tabs Route: PO; ea 04:27 Follow up: Response: Medication administered at discharge. ea Intake: 04:20 IV: 700ml; Total: 700ml. ea Outcome: 04:16 Discharge ordered by . rn 04:27 Discharged to home ambulatory, with family. ea 04:27 Condition: stable 04:27 Discharge instructions given to patient, Instructed on discharge instructions, follow up and referral plans. medication usage, Demonstrated understanding of instructions, follow-up care, medications, Prescriptions given X 1. 04:29 Patient left the ED. ea Signatures: Dispatcher [employer] EDMS Michael Ahn MD MD rn Antunez, Elena RN Yogi Durant ea RN Cari Solis
[2021-02-23 04:37] VITALS: BP 134/78; TEMP 98; O2SAT 98
[2021-02-23] MEDS ORDERED: DIPHENOX/ATROP SULF 1 TAB PO ONE (04:40)
[2021-02-23 04:45] LABS: Blood Morphology Comment NOT SEEN (NOT SEEN); Platelet Estimate ADEQ
--- NOTE | 2021-02-23 11:58 | RAD REPORT ---
EXAM DESCRIPTION: CT - Abdomen Pelvis W Contrast - 02/23/2021 6:22 am COMPARISON: None. CLINICAL HISTORY: [facility] MAIN NAUSEA; VOMITING; ABD PAIN TECHNIQUE: CT of the abdomen and pelvis was acquired with IV contrast material. Coronal and sagitt al reconstructions were obtained. Automated exposure control was utilized on this examination as a dose lowering technique. FINDINGS: Lung bases: Clear. A calcified granuloma is noted in the left lung base. Liver: Normal. Gallbladder and biliary: Normal gallbladder. Unremarkable biliary tree. Pancreas: Normal. Spleen: Enlarged measuring 18.8 cm. Adrenal glands: Normal adrenal glands. Kidneys: Normal kidneys Stomach and Small Bowel: The stomach is normal. There are a few mildly dilated loops of fluid-filled small bowel. Urinary bladder: Normal. Prostate/Male Urogenital: Normal. Colon and Appendix: The colon is unremarkable. No evidence of appendicitis. Retroperitoneum and lymph nodes: Normal. Vascular: Normal. Peritoneal cavity: No ascites or free air. Musculoskeletal and soft tissues: Soft tissues are unremarkable. No aggressive bone lesions. No com pression fracture. IMPRESSION: 1. A few mildly dilated loops of fluid-filled small bowel may be seen with mild ileus or enteritis. 2. Splenomegaly. Electronically signed by: Ezio Staley MD 02/23/2021 4:03 AM CDT Due to temporary technical issues with the PACS/Fluency reporting system, reports are being signed by the in house radiologist without review as a courtesy to ensure prompt reporting. The interpreting r adiologist is fully responsible for the content of the report.
== END 2021-02-23 04:29 | disposition home or self-care (01) ==
LOC: ER 02:12
DX: R19.7 Diarrhea, unspecified (principal); F41.9 Anxiety disorder, unspecified
CPT/HCPCS: 96361; 85025; 80048; 36415; 80076; 83690; 74177; 96374; 99284; Q9967; J7030; J2405

== ENCOUNTER 2022-04-01 19:13 | Emergency (ER) | payer BC, OTHER ==
--- OUTSIDE RECORDS SUMMARY | 2022-04-01 19:17 | XMS REPORT | Continuity of Care Document ---
:1975 Author Organization [facility] t Address [address] [place] [address] Care Team Providers Name Role Phone Rodri Ba Attending Clinician Unavailable Claudette Chow Attending Clinician Unavailable Yaw HERRERA Attending Clinician YAW Attending Clinician Unavailable Doctor Unassigned, Name Attending Clinician Unavailable Naye Sanford DO Attending Clinician TIERNEY MAR Attending Clinician Unavailable Payers Payer Name Policy Type Policy Number Effective Date Expiration Date S ource Problems Condition Condition Condition Status Onset Resolution Last Treating Co mments Source Name Details Category Date Date Treatment Clinician Date Anxiety Anxiety Disease Active 2014-10 Univers 11-08 ity of 00:00: [place] [facility] Headache Headache Disease Active 2014-10 Unive rs 11-08 ity of 00:00: [facility] Insomnia Insomnia Disease Active 2014-10 Unive rs 11-08 ity of 00:00: [facility] Branch Muscle Muscle Disease Active 2014-10 Univers spasm spasm 11-08 ity of 00:00: [place] [facility] Hypogonadi Hypogonadi Disease Active 2014-10 U nivers sm in male sm in male 11-08 it y of 00:00: [place] [facility] Low back Low back Disease Active 2014-10 Unive rs ache ache 11-08 ity of 00:00: [facility] Allergies, Adverse Reactions, Alerts Allergy Allergy Status Severity Reaction(s) Onset Inactive Treating Comm ents Source Name Type Date Date Clinician CODEINE DRUG Active Unknown-Cmnt 2014-10 Uni vers INGREDI 0-20 ity of 00:00: [place] 00 Medical [facility] PROPOXYP DRUG Active Unknown-Cmnt 2014-10 Un renee HENE 0-20 ity of N-ACETAM 00:00: [place] INOPHEN 00 Medical Branch Codeine Propensi Active Unknown - 2014-10 Univ ers ty to See comments 0-20 ity of adverse 00:00: [place] reaction 00 Medical s Branch Propoxyp Propensi Active Unknown - 2014-10 Uni vers hene ty to See comments 0-20 ity of N-Acetam adverse 00:00: [place] inophen reaction 00 Medical s Branch Social History Social Habit Start Date Stop Date Quantity Comments Source Exposure to Not sure [facility] SARS-CoV-2 (event) Medica l Branch Tobacco use and 2021-06-04 2021-06-04 Never used [facility] exposure 00:00:00 00:00:00 Medical Branch Sex [birth year] [facility] 00:00:00 00:00:00 Medical Branch Smoking Status Start Date Stop Date Source Unknown if ever smoked [facility] Never smoker [facility] Medications Ordered Filled Start Stop Current Ordering Indication Dosage Frequency Signature Comments Components Source Medication Medication Date Date Medication? Clinician (SIG) Name Name miranda Yes 200mg 200 mg by Univers e cypionate 06-04 Intramuscu it y of (DEPO-TESTO 16:01: [place] STERONE) 17 once every Medic al 200 mg/mL month. Branch injection cyclobenzap Yes 15mg Take 15 mg Univers rine 06-04 by mouth ity of (AMRIX) 15 16:01: once daily [place] mg 24 hr 17 as needed Medica l capsule for Muscle Branch Spasms. levothyroxi Yes 75ug Take 75 Uni vers ne 06-04 mcg by ity of (SYNTHROID) 16:00: mouth [place] 75 mcg 50 every Medical tablet morning. Branch cephALEXin 2020- No [id number] 500mg Take 1 Univers (KEFLEX) 06-04 08-13 capsule by ity of 500 mg 00:00: 04:59 mouth 4 [place] capsule 00 :00 (four) Medical times Branch daily for 5 days. dextroamphe 0 Yes 30mg Take 30 mg Univers tamine-amph 7-23 by mouth 2 it y of etamine 30 00:00: (two) [place] mg tablet 00 times Medical daily. Branch ondansetron 2020- No 4mg 4 mg, [facility] ers (ZOFRAN-ODT 2-15 02-15 Oral, ity of ) 16:15: 15:05 ONCE, 1 [place] disintegrat 00 :00 dose, Mon Med ical ing tablet 12/13/20 at [facility] 4 mg 1015, Routine testosteron 0 Yes 200mg 200 mg by Univers e cypionate 2-15 Intramuscu it y of (DEPO-TESTO 15:04: [place] route [place] STERONE) 06 once every Medic al 200 mg/mL month. Branch injection levothyroxi 0 Yes 75ug Take 75 Uni vers ne 2-15 mcg by ity of (SYNTHROID) 15:04: mouth [place] 75 mcg 06 every Medical tablet morning. Branch cyclobenzap 0 Yes 15mg Take 15 mg Univers rine 2-15 by mouth ity of (AMRIX) 15 15:04: once daily [place] mg 24 hr 06 as needed Medica l capsule for Muscle Branch Spasms. testosteron Yes 200mg 200 mg by Univers e cypionate 2-15 Intramuscu it y of (DEPO-TESTO 15:04: lar route [place] STERONE) 06 once every Medic al 200 mg/mL month. Branch injection levothyroxi 2020-0 Yes 75ug Take 75 Uni vers ne 2-15 mcg by ity of (SYNTHROID) 15:04: mouth [place] 75 mcg 06 every Medical tablet morning. Branch cyclobenzap 0 Yes 15mg Take 15 mg Univers rine 2-15 by mouth ity of (AMRIX) 15 15:04: once daily [place] mg 24 hr 06 as needed Medica l capsule for Muscle Branch Spasms. testosteron 0 Yes 200mg 200 mg by Univers e cypionate 2-15 Intramuscu it y of (DEPO-TESTO 15:04: [place] route [place] STERONE) 06 once every Medic al 200 mg/mL month. Branch injection levothyroxi 2021-0 Yes 75ug Take 75 Uni vers ne 2-15 mcg by ity of (SYNTHROID) 15:04: mouth [place] 75 mcg 06 every Medical tablet morning. Branch cyclobenzap Yes 15mg Take 15 mg Univers rine 2-15 by mouth ity of (AMRIX) 15 15:04: once daily [place] mg 24 hr 06 as needed Medica l capsule for Muscle Branch Spasms. Gabapentin Gabapentin Yes Alvin 1 tablet Common 05-24 [facility] 00:00: - [facility] 00 [facility] testosteron 2014-10 Yes 200mg 200 mg by Univers e cypionate 1-11 Intramuscu it y of (DEPO-TESTO 19:32: lar route [place] STERONE) 19 once every Medic al 200 mg/mL month. Branch injection levothyroxi 2014-10 Yes 75ug Take 75 Uni vers ne 1-11 mcg by ity of (SYNTHROID) 19:32: mouth [place] 75 mcg 19 every Medical tablet morning. Branch cyclobenzap 2014-10 Yes 15mg Take 15 mg Univers rine 1-11 by mouth ity of (AMRIX) 15 19:32: once daily [place] mg 24 hr 19 as needed Medica l capsule for Muscle Branch Spasms. clonazePAM 2014-10 Yes 1mg Take 1 Tab U nivers (KLONOPIN) 0-20 by mouth 2 ity of 1 mg tablet 00:00: (two) [place] 00 times Medical daily. Branch cyclobenzap 2014-10 Yes 10mg Take 1 Tab Univers rine 0-20 by mouth ity of (FLEXERIL) 00:00: at [place] 10 mg 00 bedtime. Medical tablet Branch SERTraline 2014-10 Yes 100mg Take 1 Tab Univers (ZOLOFT) 0-20 by mouth ity of 100 mg 00:00: daily. [place] tablet 00 Take 1 1/2 Medical Tab daily Branch zolpidem 2014-10 Yes 12.5mg Take 1 Tab U nivers (AMBIEN CR) 0-20 by mouth ity of 12.5 mg CR 00:00: at [place] tablet 00 bedtime. Medical Branch clonazePAM 2014-10 Yes 1mg Take 1 Tab U nivers (KLONOPIN) 0-20 by mouth 2 ity of 1 mg tablet 00:00: (two) [place] 00 times Medical daily. Branch cyclobenzap 2014-10 Yes 10mg Take 1 Tab Univers rine 0-20 by mouth ity of (FLEXERIL) 00:00: at [place] 10 mg 00 bedtime. Medical tablet Branch SERTraline 2014-10 Yes 100mg Take 1 Tab Univers (ZOLOFT) 0-20 by mouth ity of 100 mg 00:00: daily. [place] tablet 00 Take 1 1/2 Medical Tab daily Branch zolpidem 2014-10 Yes 12.5mg Take 1 Tab U nivers (AMBIEN CR) 0-20 by mouth ity of 12.5 mg CR 00:00: at [place] tablet 00 bedtime. Medical Branch clonazePAM 2014-10 Yes 1mg Take 1 Tab U nivers (KLONOPIN) 0-20 by mouth 2 ity of 1 mg tablet 00:00: (two) [place] 00 times Medical daily. Branch cyclobenzap 2014-10 Yes 10mg Take 1 Tab Univers rine 0-20 by mouth ity of (FLEXERIL) 00:00: at [place] 10 mg 00 bedtime. Medical tablet Branch SERTraline 2014-10 Yes 100mg Take 1 Tab Univers (ZOLOFT) 0-20 by mouth ity of 100 mg 00:00: daily. [place] tablet 00 Take 1 1/2 Medical Tab daily Branch zolpidem 2014-10 Yes 12.5mg Take 1 Tab U nivers (AMBIEN CR) 0-20 by mouth ity of 12.5 mg CR 00:00: at [place] tablet 00 bedtime. Medical Branch clonazePAM 2014-10 Yes 1mg Take 1 Tab U nivers (KLONOPIN) 0-20 by mouth 2 ity of 1 mg tablet 00:00: (two) [place] 00 times Medical daily. Branch cyclobenzap 2014-10 Yes 10mg Take 1 Tab Univers rine 0-20 by mouth ity of (FLEXERIL) 00:00: at [place] 10 mg 00 bedtime. Medical tablet Branch SERTraline 2014-10 Yes 100mg Take 1 Tab Univers (ZOLOFT) 0-20 by mouth ity of 100 mg 00:00: daily. [place] tablet 00 Take 1 1/2 Medical Tab daily Branch zolpidem 2014-10 Yes 12.5mg Take 1 Tab U nivers (AMBIEN CR) 0-20 by mouth ity of 12.5 mg CR 00:00: at [place] tablet 00 bedtime. Medical Branch clonazePAM 2014-10 Yes 1mg Take 1 Tab U nivers (KLONOPIN) 0-20 by mouth 2 ity of 1 mg tablet 00:00: (two) [place] 00 times Medical daily. Branch cyclobenzap 2014-10 Yes 10mg Take 1 Tab Univers rine 0-20 by mouth ity of (FLEXERIL) 00:00: at [place] 10 mg 00 bedtime. Medical tablet Branch SERTraline 2014-10 Yes 100mg Take 1 Tab Univers (ZOLOFT) 0-20 by mouth ity of 100 mg 00:00: daily. [place] tablet 00 Take 1 1/2 Medical Tab daily Branch zolpidem 2014-10 Yes 12.5mg Take 1 Tab U nivers (AMBIEN CR) 0-20 by mouth ity of 12.5 mg CR 00:00: at [place] tablet 00 bedtime. Medical Branch Clonazepam Clonazepam Yes Alvin not Common [facility] defined [facility] Amphetamine Amphetamine Yes Alvin not Common -Dextroamph -Dextroamph [facility] defined [facility] etamine etamine - [facility] Testosteron Testosteron Yes Alvin not Common e Cypionate e Cypionate [facility] defined [facility] Sertraline Sertraline Yes Alvin not Common HCl HCl [facility] defined [facility] Meloxicam Meloxicam Yes Alvin TAKE 1 Common [facility] TABLET BY Spirit MOUTH - CHI DAILY [facility] Vital Signs Vital Name Observation Time Observation Value Comments Source Systolic blood 2021-06-04 16:02:00 165 mm[Hg] [facility] Diastolic blood 2021-06-04 16:02:00 77 mm[Hg] [facility] Body temperature 2021-06-04 15:58:00 36.44 Cornelia [facility] Respiratory rate 2021-06-04 15:58:00 17 /min [facility] Body height 2021-06-04 15:58:00 175.3 cm [facility] Body weight 2021-06-04 15:58:00 108.863 kg [facility] BMI 2021-06-04 15:58:00 35.44 kg/m2 [facility] Oxygen saturation in 2021-06-04 15:58:00 98 /min University of Arterial blood by [facility] [place] danielle Pulse oximetry Branch Heart rate 2021-06-04 15:58:00 73 /min [facility]i ty [facility] [place] [facility] Systolic blood 2020-12-13 15:03:00 171 mm[Hg] Univer sity of pressure [place] [facility] Diastolic blood 2020-12-13 15:03:00 98 mm[Hg] Unive rsity of pressure [place] [facility] Heart rate 2020-12-13 15:03:00 80 /min Universi ty [facility] [place] [facility] Body temperature 2020-12-13 15:03:00 36.28 Cornelia Univ ersity of [place] [facility] Respiratory rate 2020-12-13 15:03:00 18 /min Univ ersity of [place] [facility] Body weight 2020-12-13 15:03:00 113.399 kg Universi ty [facility] [place] [facility] Oxygen saturation in 2020-12-13 15:03:00 100 /min University of Arterial blood by [facility] Pulse oximetry Branch Systolic blood 2020-12-13 15:03:00 171 mm[Hg] Univer sity of pressure [place] [facility] Diastolic blood 2020-12-13 15:03:00 98 mm[Hg] Unive rsity of pressure [place] [facility] Heart rate 2020-12-13 15:03:00 80 /min Universi ty [facility] [place] [facility] Body temperature 2020-12-13 15:03:00 36.28 Cornelia Univ ersity [facility] [place] [facility] Respiratory rate 2020-12-13 15:03:00 18 /min Univ ersity of [place] [facility] Body weight 2020-12-13 15:03:00 113.399 kg Universi ty [facility] [place] [facility] Oxygen saturation in 2020-12-13 15:03:00 100 /min University of Arterial blood by [facility] Pulse oximetry Branch Procedures Procedure Date / Time Performed Performing Clinician [facility] e ASSIGNMENT OF BENEFITS 2020-12-13 15:12:04 Doctor Unassigned, No [facility] Medical Branch CONSENT/REFUSAL FOR 2020-12-13 14:49:57 Doctor Unassigned, No [facility] DIAGNOSIS AND Name Medical Branch TREATMENT NOTICE OF PRIVACY 2020-12-13 14:49:09 Doctor Unassigned, No Univ [facility] PRACTICES Name Medical Branch Encounters Start End Encounter Admission Attending Care Care Encounter Source Date/Time Date/Time Type Type Clinicians Facility Department ID 2022-03-15 Outpatient Ba, STLMLC STLMLC [id number] Common 15:44:00 Alberto [facility] 2022-01-20 Outpatient Ba, STLMLC STLMLC [id number] Common 14:51:02 Alberto [facility] 2022-01-16 Outpatient Ba, STLMLC STLMLC [id number] Common 09:05:00 Alberto [facility] 2022-01-09 Outpatient Ba, STLMLC STLMLC [id number] Common 08:50:02 Alberto [facility] 2021-12-20 Outpatient Ba, STLMLC STLMLC [id number] Common 10:18:02 Alberto [facility] 2021-11-23 Outpatient Ba, STLMLC STLMLC [id number] Common 14:24:33 Alberto 91606 [facility] 2021-11-23 Outpatient Ba, STLMLC STLMLC [id number] Common 14:13:44 Alberto 40666 [facility] 2021-11-23 Outpatient Ba, STLMLC STLMLC [id number] Common 14:02:32 Alberto 91114 [facility] 2021-11-23 Outpatient Ba, STLMLC STLMLC [id number] Common 13:33:46 Albetro [facility] 2021-11-23 Outpatient Ba, STLMLC STLMLC [id number] Common 13:33:20 Alberto 08428 [facility] 2021-11-23 Outpatient Ba, STLMLC STLMLC [id number] Common 13:22:51 Alberto 67500 [facility] 2021-11-23 Outpatient Ba, STLMLC STLMLC [id number] Common 13:11:25 Alberto 61155 [facility] 2021-11-23 Outpatient Ba, STLMLC STLMLC [id number] Common 12:49:49 Alberto 97096 [facility] 2021-11-23 Outpatient Ba, STLMLC STLMLC [id number] Common 12:49:22 Alberto 27373 [facility] 2021-11-23 Outpatient STLMLC STLMLC [id number] Common 12:38:54 [id number] [facility] 2021-11-23 Outpatient Chow, STLMLC STLMLC [id number] Common 11:30:00 Yemi Lowry [facility] 2021-11-23 Outpatient Chow, STLMLC STLMLC [id number] Common 11:16:59 Yemi 91592 [facility] 2021-08-27 Emergency [facility] [id number] Univers 23:38:51 [facility] 2022-03-16 2022-03-16 ambulatory STLMLC STLMLC [id number] Common 00:00:00 00:00:00 [facility] 2022-01-11 2022-01-11 ambulatory STLMLC STLMLC [id number] Common 00:00:00 00:00:00 [facility] 2021-11-16 2021-11-16 ambulatory STLMLC STLMLC [id number] Common 00:00:00 00:00:00 [facility] 2021-09-14 2021-09-14 ambulatory STLMLC STLMLC [id number] Common 00:00:00 00:00:00 [facility] 2021-07-13 2021-07-13 Outpatient STLMLC STLMLC [id number] Common 00:00:00 00:00:00 [facility] 2021-06-28 2021-06-28 Outpatient STLMLC STLMLC [id number] Common 00:00:00 00:00:00 [facility] 2021-06-04 2021-06-04 Urgent [facility] [id number] Univers 10:54:07 11:14:07 [facility] [id number] it [facility] [id number] Gabriele as Professio [phone] [address] Office [address] 2021-06-04 2021-06-04 Outpatient R [facility] [id number] Univers 11:00:00 11:00:[id number] [facility] 2021-06-04 2021-06-04 [facility] [id number] Univers 11:00:00 11:00:[address] [facility] 2021-06-04 2021-06-04 Letter Doctor FAVIOLA [id number] Univers 00:00:00 00:00:00 (Out) Unassigned, JEM [id number] [facility] [id number] [place] as [phone] [address] 2021-06-04 2021-06-04 Letter Doctor FAVIOLA [id number] Univers 00:00:00 00:00:00 (Out) Unassigned, JEM [id number] [facility] [id number] [place] as [phone] [address] 2021-05-31 2021-05-31 Outpatient STLMLC STLMLC [id number] Common 00:00:00 00:00:00 [facility] 2021-05-04 2021-05-04 Outpatient STLMLC STLMLC [id number] Common 00:00:00 00:00:00 [facility] 2021-04-05 2021-04-05 Outpatient STLMLC STLMLC [id number] Common 00:00:00 00:00:00 [facility] 2021-03-07 2021-03-07 Outpatient STLMLC STLMLC [id number] Common 00:00:00 00:00:00 [facility] 2021-02-04 2021-02-04 Outpatient STLMLC STLMLC [id number] Common 00:00:00 00:00:00 [facility] 2020-12-13 2020-12-13 Emergency [facility] [id number] Univers 09:00:00 09:40:00 Mere Nick [id number] ity of [place] [id number] [facility] [phone] [facility] [address] [place] 2020-12-13 2020-12-13 Emergency [facility] [id number] 09:00:00 09:40:00 Mere Nick [id number] [place] [id number] [place] [phone] [facility] 2020-12-13 2020-12-13 Orders Doctor FAVIOLA [id number] Univers 00:00:00 00:00:00 Only Unassigned, JEM [id number] ity of Doctor Phillips [facility] [id number] [place] [id number] [address] 2020-12-13 2020-12-13 Orders Doctor FAVIOLA [id number] 00:00:00 00:00:00 Only Unassigned, JEM [id number] Doctor Phillips [facility] [id number] [id number] 2020-07-07 2020-07-07 Outpatient Radha Sotelo [id number] Common 16:34:00 16:34:00 [facility] 2020-07-07 2020-07-07 Outpatient Brazally Sotelo [id number] Common 15:00:00 15:00:00 t [facility] 2020-06-15 2020-06-15 Outpatient Jorje MAR [facility] [id number] Univers 13:15:00 13:15:00 JOSE itbarbi of [facility] 2020-05-31 2020-05-31 Outpatient Radha Garciat [id number] Common 13:12:00 13:12:00 t [facility] Sp[facility] t [facility] 2020-05-27 2020-05-27 Outpatient [facility] [id number] Common 08:00:00 08:00:00 t [facility] Bone and Spiri t and [facility] 2020-05-24 2020-05-24 Outpatient Brazally [facility] [id number] Common 09:47:00 09:47:00 t Bone Bone and Spiri t and Joint [facility] 2020-05-24 2020-05-24 Outpatient Brazally Garciat [id number] Common 08:42:00 08:42:00 t Bone Bone and Spiri t and Joint [facility] 2020-05-04 2020-05-04 Outpatient Brazally [facility] [id number] Common 09:18:00 09:18:00 t Bone Bone and Spiri t and Joint [facility] 2020-05-04 2020-05-04 Outpatient Brazally Garciat [id number] Common 08:20:00 08:20:00 t Bone Bone and Spiri t and Joint [facility] 2020-05-03 2020-05-03 Outpatient [place] [facility] [id number] Common 16:03:00 16:03:00 t Bone Bone and Spiri t and Joint [facility] 2020-04-27 2020-04-27 Outpatient Brazally [facility] [id number] Common 10:30:00 10:30:00 t Bone Bone and Spiri t and Joint [facility] 2020-04-12 2020-04-12 Outpatient [facility] [id number] Common 11:00:00 11:00:00 t Bone Bone and Spiri t and Joint [facility] 2020-04-08 2020-04-08 Outpatient [facility] [id number] Common 08:00:00 08:00:00 t Bone Bone and Spiri t and Joint [facility] 2020-04-01 2020-04-01 Outpatient Radha Sotelo [id number] Common 16:18:00 16:18:00 t Bone Bone and Spiri t and Joint [facility] 2020-03-30 2020-03-30 Outpatient Radha Sotelo [id number] Common 09:05:00 09:05:00 t Bone Bone and Spiri t and Joint [facility] 2020-03-15 2020-03-15 Outpatient Radha Sotelo [id number] Common 10:30:00 10:30:00 t Bone Bone and Spiri t and Joint [facility] 2020-02-26 2020-02-26 Outpatient Radha Sotelo [id number] Common 09:42:00 09:42:00 t Bone Bone and Spiri t and Joint [facility] 2020-02-24 2020-02-24 Outpatient Radha Sotelo [id number] Common 11:54:00 11:54:00 t Bone Bone and Spiri t and Joint [facility] 2020-02-02 2020-02-02 Outpatient Radha Sotelo [id number] Common 08:00:00 08:00:00 t Bone Bone and Spiri t and Joint [facility] Results This patient has no known results.
[2022-04-01] MEDS ORDERED: DIAZEPAM 5 MG TABLET ONE (20:06)
[2022-04-01] MEDS ORDERED: HYDROCODONE/APAP 5/325 MG TAB ONE (20:06)
--- NOTE | 2022-04-01 21:08 | RAD REPORT ---
EXAM DESCRIPTION: RAD - Lumbar Spine 3 Views - 04/01/2022 8:52 pm CLINICAL HISTORY: Back pain FINDINGS: No fracture or dislocation is seen. Mild spondylosis involves the lumbar spine
--- NOTE | 2022-04-01 22:09 | RAD REPORT ---
EXAM DESCRIPTION: RAD - C Spine Single View - 04/01/2022 9:58 pm CLINICAL HISTORY: Neck pain FINDINGS: No fracture is seen. Mild posterior subluxation C4 on C5 has developed since 2020. CT scan is recommended. Limited evaluation C7 secondary to overlying shoulders. This also can be evaluated on the CT scan
--- NOTE | 2022-04-01 22:10 | RAD REPORT ---
EXAM DESCRIPTION: RAD - Shoulder Left 2 View - 04/01/2022 9:57 pm CLINICAL HISTORY: Left shoulder pain FINDINGS: No fracture or dislocation is seen.
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
[2022-04-01 23:54] VITALS: TEMP 98.3
[2022-04-01 23:59] VITALS: BP 148/68; O2SAT 100
--- NOTE | 2022-04-04 09:20 | RAD REPORT ---
EXAM DESCRIPTION: CT CERVICAL SPINE WITHOUT CONTRAST. CLINICAL HISTORY: Neck pain, acute, no red flags COMPARISON: None. TECHNIQUE: Axial nonenhanced CT imaging of the cervical spine. Reformatted coronal and sagittal imag es obtained. Dose reduction technique utilized with automated exposure control, adjustment of the mA and/or kV acc ording to patient size or use of iterative reconstruction technique. FINDINGS: There is slight reversal of cervical lordosis. There is no fracture within the ring of C1 or tip of the odontoid process. No vertebral body compression fracture. There is slight degenerative anterior wedging of C4. No subluxation. Disc space height is normal. No fracture within the posterior elements. No spinal canal or foraminal stenosis. No prevertebral edema. The craniocervical and cervi cothoracic junction alignment is anatomic. Skull base is intact. Mastoid air cells are clear. Parapharyngeal soft tissues and mucosal spaces are unremarkable. Normal epiglottis. Normal appearance of the vocal folds and subglottic airway. Possible right thyroid lobe 1.3 cm thyroid. No significant clavicular adenopathy. No adenopathy throughout the neck seen. Normal appearance of the submandibula r and parotid glands. Included lung apices are clear. The imaged portions of the posterior fossa appear unremarkable. There is mild mucosal thickening with in the maxillary sinuses. IMPRESSION: 1. Cervical spine muscle spasm. No acute fracture or subluxation. 2. 1.3 cm possible right thyroid nodule. This can be further assessed with sonography on a nonemergen t basis. Electronically signed by: Prerna Lopez DO 04/01/2022 11:21 PM CDT Due to temporary technical issues with the PACS/Fluency reporting system, reports are being signed by the in house radiologists without review as a courtesy to insure prompt reporting. The interpreting radiologist is fully responsible for the content of the report.
== END 2022-04-01 23:49 | disposition home or self-care (01) ==
LOC: ER 19:13
DX: M62.830 Muscle spasm of back (principal); M54.2 Cervicalgia; M25.512 Pain in left shoulder; V57.5XXA Driver of pick-up truck or van injured in collision with fixed or stationary object in traffic accident, initial encounter
CPT/HCPCS: 72020; 72100; 72125; 99284

== ENCOUNTER 2022-08-21 07:06 | Emergency (ER) | payer OTHER ==
--- OUTSIDE RECORDS SUMMARY | 2022-08-21 07:12 | XMS REPORT | Continuity of Care Document ---
:[address] [facility] t Address [address] [place] [address] Care Team Providers Name Role Phone Alberto Ba Attending Clinician Unavailable Yemi Chow Attending Clinician Unavailable Ellen Austin MD Attending Clinician ELLEN AUSTIN Attending Clinician Unavailable Doctor Unassigned, [place] Attending Clinician Unavailable Mere Sanford DO Attending Clinician JOSE MAR Attending Clinician Unavailable Payers Payer Name Policy Type Policy Number Effective Date Expiration Date Stepan MCCOY 53 [id number] 2021 Common [facility] - 00:00:00 [facility] Problems Condition Condition Condition Status Onset Resolution Last Treating Co mments Source Name Details Category Date Date Treatment Clinician Date Anxiety Anxiety Disease Active 2014-10 Univers 11-08 ity of 00:00: [address] Headache Headache Disease Active 2014-10 Unive rs 11-08 ity of 00:00: [place] [facility] Insomnia Insomnia Disease Active 2014-10 Unive rs 11-08 ity of 00:00: [address] Muscle Muscle Disease Active 2014-10 Univers spasm spasm 11-08 ity of 00:00: [address] Low back Low back Disease Active 2014-10 Unive rs ache ache 11-08 ity of 00:00: [address] [id number] 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 [facility] [id number] Prostate Problem Com mon [id number] nodule Spirit - [facility] [id number] 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 - [facility] sm [facility] 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, - [facility] left [facility] [id number] Current Problem Common moderate Spirit episode of - [facility]I major [facility] Medical without Center prior episode [id number] Benzodiaze Problem Co mmon pine Spirit dependence - [facility] , [facility] [id number] Attention Problem Comm on deficit Spirit hyperactiv - CHI ity [facility] (ADHD), [facility] tly inattentiv e type [id number] Acquired Problem Comm on hypothyroi Spirit dism - [facility] [id number] Body mass Problem Com mon index Spirit [BMI] - CHI 35.0-35.9, [facility] [id number] Morbid Problem Commo n 9104 (severe) Spirit obesity - CHI due to [facility] [id number] Generalize Problem Com mon d anxiety Spirit disorder - [facility] [id number] Panic Problem Common disorder [facility]episodic - [id number] Repetitive Problem Co mmon intrusions Spirit of sleep - [facility] [id number] Daytime Problem Comm on 00 somnolence [facility] [id number] Chronic Problem Common fatigue [facility] Allergies, Adverse Reactions, Alerts Allergy Allergy Status [...] [place] inophen reaction 00 Medical s Branch codeine codeine Active Unknown Common [facility] - [facility] Social History Social Habit Start Date Stop Date Quantity Comments Source Exposure to Not sure [facility] SARS-CoV-2 (event) Medica l Branch History of Tobacco Common Spirit - [facility] Use [facility] Sex Assigned At Common Sp jonas - [facility] Tobacco use and 2021-06-04 2021-06-04 Never used [facility] exposure 00:00:00 00:00:00 Medical Branch Smoking Status Start Date Stop Date Source Unknown if ever smoked [facility] Medical [place] Never Smoker Common [facility] - [facility] Medications Ordered Filled Start Stop Current Ordering Indication Dosage Frequency Signature Comments Components Source Medication Medication Date Date Medication? Clinician (SIG) Name Name Amphetamine Amphetamine 2021-10 No 1{table BID Amphetamin -Dextroamph -Dextroamph 0-21 t} e-Dextroam etamine 30 etamine 30 00:00: phetamine MG MG 00 30 MG Amphetamine Amphetamine 2021-10 No 1{table BID Amphetamin -Dextroamph -Dextroamph 0-21 t} e-Dextroam etamine 30 etamine 30 00:00: phetamine MG MG 00 30 MG clonazePAM clonazePAM 2021-0 No 1{table QD clonazePAM 2 MG 2 MG 9-22 t_at_be 2 MG 00:00: dtime} 00 Amphetamine Amphetamine 2021-0 No 1{table BID Amphetamin -Dextroamph -Dextroamph 9-22 t} e-Dextroam etamine 30 etamine 30 00:00: phetamine MG MG 00 30 MG clonazePAM clonazePAM 2021-0 No 1{table QD clonazePAM 2 MG 2 MG 9-22 t_at_be 2 MG 00:00: dtime} 00 Amphetamine Amphetamine 2021-0 No 1{table BID Amphetamin -Dextroamph -Dextroamph 9-22 t} e-Dextroam etamine 30 etamine 30 00:00: phetamine MG MG 00 30 MG Amphetamine Amphetamine 2021-0 No 1{table BID Amphetamin -Dextroamph -Dextroamph 8-24 t} e-Dextroam etamine 30 etamine 30 00:00: phetamine MG MG 00 30 MG Amphetamine Amphetamine 2021-0 No 1{table BID Amphetamin -Dextroamph -Dextroamph 8-24 t} e-Dextroam etamine 30 etamine 30 00:00: phetamine MG MG 00 30 MG clomiPHENE clomiPHENE 2-0 No QD clomiPHENE Citrate 50 Citrate 50 8-05 Citrate 50 MG MG 00:00: MG 00 clomiPHENE clomiPHENE 2-0 No QD clomiPHENE Citrate 50 Citrate 50 8-05 Citrate 50 MG MG 00:00: MG 00 clomiPHENE clomiPHENE 2-0 No QD clomiPHENE Citrate 50 Citrate 50 8-05 Citrate 50 MG MG 00:00: MG 00 Amphetamine Amphetamine 2-0 No 1{table BID Amphetamin -Dextroamph -Dextroamph 7-25 t} e-Dextroam etamine 30 etamine 30 00:00: phetamine MG MG 00 30 MG Amphetamine Amphetamine 2-0 No 1{table BID Amphetamin -Dextroamph -Dextroamph 7-25 t} e-Dextroam etamine 30 etamine 30 00:00: phetamine MG MG 00 30 MG clonazePAM clonazePAM 2-0 No 1{table QD clonazePAM 2 MG 2 MG 7-15 t_at_be 2 MG 00:00: dtime} 00 clonazePAM clonazePAM 2-0 No 1{table QD clonazePAM 2 MG 2 MG 7-15 t_at_be 2 MG 00:00: dtime} 00 Amphetamine Amphetamine 2-0 No 1{table BID Amphetamin -Dextroamph -Dextroamph 6-23 t} e-Dextroam etamine 30 etamine 30 00:00: phetamine MG MG 00 30 MG Amphetamine Amphetamine 2022-0 No 1{table BID Amphetamin -Dextroamph -Dextroamph 6-23 t} e-Dextroam etamine 30 etamine 30 00:00: phetamine MG MG 00 30 MG Amphetamine Amphetamine 2022-0 No 1{table BID Amphetamin -Dextroamph -Dextroamph 5-25 t} e-Dextroam etamine 30 etamine 30 00:00: phetamine MG MG 00 30 MG Amphetamine Amphetamine 2022-0 No 1{table BID Amphetamin -Dextroamph -Dextroamph 5-25 t} e-Dextroam etamine 30 etamine 30 00:00: phetamine MG MG 00 30 MG clonazePAM clonazePAM 2022-0 No 1{table QD clonazePAM 2 MG 2 MG 5-19 t_at_be 2 MG 00:00: dtime} 00 clonazePAM clonazePAM 2-0 No 1{table QD clonazePAM 2 MG 2 MG 5-19 t_at_be 2 MG 00:00: dtime} 00 Amphetamine Amphetamine 2-0 No 1{table BID Amphetamin -Dextroamph -Dextroamph 4-21 t} e-Dextroam etamine 30 etamine 30 00:00: phetamine MG MG 00 30 MG Amphetamine Amphetamine 2021-0 No 1{table BID Amphetamin -Dextroamph -Dextroamph 3-22 t} e-Dextroam etamine 30 etamine 30 00:00: phetamine MG MG 00 30 MG clonazePAM clonazePAM 2021-0 No 1{table QD clonazePAM 2 MG 2 MG 3-16 t_at_be 2 MG 00:00: dtime} 00 Amphetamine Amphetamine 2021-0 No 1{table BID Amphetamin -Dextroamph -Dextroamph 2-20 t} e-Dextroam etamine 30 etamine 30 00:00: phetamine MG MG 00 30 MG Amphetamine Amphetamine 2021-0 No 1{table BID Amphetamin -Dextroamph -Dextroamph 1-20 t} e-Dextroam etamine 30 etamine 30 00:00: phetamine MG MG 00 30 MG clonazePAM clonazePAM 2021-0 No 1{table QD clonazePAM 2 MG 2 MG 1-19 t_at_be 2 MG 00:00: dtime} 00 Amphetamine Amphetamine 2020-1 No 1{table BID Amphetamin -Dextroamph -Dextroamph 2-17 t} e-Dextroam etamine 30 etamine 30 00:00: phetamine MG MG 00 30 MG Amphetamine Amphetamine 2020-1 No 1{table BID Amphetamin -Dextroamph -Dextroamph 1-17 t} e-Dextroam etamine 30 etamine 30 00:00: phetamine MG MG 00 30 MG clonazePAM clonazePAM 2020-1 No 1{table QD clonazePAM 2 MG 2 MG 1-17 t_at_be 2 MG 00:00: dtime} 00 testosteron 2020-0 Yes 200mg 200 mg by Univers e cypionate 8-07 Intramuscu it y of (DEPO-TESTO 16:01: lar route [place] STERONE) 17 once every Medic al 200 mg/mL month. Branch injection cyclobenzap 2020-0 Yes 15mg Take 15 mg Univers rine 8-07 by mouth ity of (AMRIX) 15 16:01: once daily [place] mg 24 hr 17 as needed Medica l capsule for Muscle Branch Spasms. levothyroxi 2020-0 Yes 75ug Take 75 Uni vers ne 8-07 mcg by ity of (SYNTHROID) 16:00: mouth [place] 75 mcg 50 every Medical tablet morning. Branch cephALEXin 2020-0 202- No [id number] 500mg Take 1 Univers (KEFLEX) 8 08-13 capsule by ity of 500 mg 00:00: 04:59 mouth 4 [place] capsule 00 :00 (four) Medical times Branch daily for 5 days. dextroamphe 2020-0 Yes 30mg Take 30 mg Univers tamine-amph 7-23 by mouth 2 it y of etamine 30 00:00: (two) [place] mg tablet 00 times Medical daily. Branch ondansetron 2020- No 4mg 4 mg, Univ ers (ZOFRAN-ODT 2-15 02-15 Oral, ity of ) 16:15: 15:05 ONCE, 1 [place] disintegrat 00 :00 dose, Mon Med ical ing tablet 12/13/20 at [facility] 4 mg 1015, Routine testosteron 2020-0 Yes 200mg 200 mg by Univers e cypionate 2-15 Intramuscu it y of (DEPO-TESTO 15:04: lar route [place] STERONE) 06 once every Medic al 200 mg/mL month. Branch injection levothyroxi 2020-0 Yes 75ug Take 75 Uni vers ne 2-15 mcg by ity of (SYNTHROID) 15:04: mouth [place] 75 mcg 06 every Medical tablet morning. Branch cyclobenzap 2020-0 Yes 15mg Take 15 mg Univers rine 2-15 by mouth ity of (AMRIX) 15 15:04: once daily [place] mg 24 hr 06 as needed Medica l capsule for Muscle Branch Spasms. testosteron 2020-0 Yes 200mg 200 mg by Univers e [...] al 200 mg/mL month. Branch injection levothyroxi Yes 75ug Take 75 Uni vers ne 2-15 mcg by ity of (SYNTHROID) 15:04: mouth [place] 75 mcg 06 every Medical tablet morning. Branch cyclobenzap Yes 15mg Take 15 mg Univers rine 2-15 by mouth ity of (AMRIX) 15 15:04: once daily [place] mg 24 hr 06 as needed Medica l capsule for Muscle Branch Spasms. Gabapentin Gabapentin 2020-0 Yes Alvin 1 tablet Common 05-24 [place] Spirit 00:00: - [facility] 00 [facility] Gabapentin Gabapentin 2020-0 No 1{table TID Gabapentin 100 MG 100 MG 05-24 t} 100 MG 00:00: 00 Gabapentin Gabapentin 2020-0 No 1{table TID Gabapentin 100 MG 100 MG 05-24 t} 100 MG 00:00: 00 Gabapentin Gabapentin 2020-0 No 1{table TID Gabapentin 100 MG 100 MG 05-24 t} 100 MG 00:00: 00 Gabapentin Gabapentin 2020-0 No 1{table TID Gabapentin 100 MG 100 MG 05-24 t} 100 MG 00:00: 00 Gabapentin Gabapentin 2020-0 No 1{table TID Gabapentin 100 MG 100 MG 05-24 t} 100 MG 00:00: 00 Gabapentin Gabapentin 2020-0 No 1{table TID Gabapentin 100 MG 100 MG 05-24 t} 100 MG 00:00: 00 Gabapentin Gabapentin 2020-0 No 1{table TID Gabapentin 100 MG 100 MG 7-27 t} 100 MG 00:00: 00 Gabapentin Gabapentin 2020-0 No 1{table TID Gabapentin 100 MG 100 MG 7 t} 100 MG 00:00: 00 Gabapentin Gabapentin 2020-0 No 1{table TID Gabapentin 100 MG 100 MG 7- t} 100 MG 00:00: 00 Depo-Medrol Depo-Medrol 2020-0 No 40mg Common (Methylpred (Methylpred 5-18 S pirit nisolone) nisolone) 00:00: - C HI 40mg 40mg 00 [facility] Bupivicaine Bupivicaine 2020-0 No 1mL Common [place] 5-18 Spirit 00:00: - [facility]I 00 [facility] Depo-Medrol Depo-Medrol 2020-0 No 40mg Common (Methylpred (Methylpred 5-18 S pirit nisolone) nisolone) 00:00: - C HI 40mg 40mg 00 [facility] Bupivicaine Bupivicaine 2020-0 No 1mL Common [place] 5-18 Spirit 00:00: - [facility]I 00 [facility] Depo-Medrol Depo-Medrol 2020-0 No 40mg Common (Methylpred (Methylpred 5-18 S pirit nisolone) nisolone) 00:00: - C HI 40mg 40mg 00 [facility] Bupivicaine Bupivicaine 2020-0 No 1mL Common [place] 5-18 Spirit 00:00: - [facility]I 00 [facility] Depo-Medrol Depo-Medrol 2020-0 No 40mg Common (Methylpred (Methylpred 5-18 S pirit nisolone) nisolone) 00:00: - C HI 40mg 40mg 00 [facility] Bupivicaine Bupivicaine 2020-0 No 1mL Common [place] 5-18 Spirit 00:00: - [facility]I 00 [facility] Depo-Medrol Depo-Medrol 2020-0 No 40mg Common (Methylpred (Methylpred 5-18 S pirit nisolone) nisolone) 00:00: - C HI 40mg 40mg 00 [facility] Bupivicaine Bupivicaine 2020-0 No 1mL Common [place] 5-18 Spirit 00:00: - [facility]I 00 [facility] Depo-Medrol Depo-Medrol 2020-0 No 40mg Common (Methylpred (Methylpred 5-18 S pirit nisolone) nisolone) 00:00: - C HI 40mg 40mg 00 [facility] Bupivicaine Bupivicaine 2020-0 No 1mL Common [place] 5-18 Spirit 00:00: - [facility]I 00 [facility] Depo-Medrol Depo-Medrol 2020-0 No 40mg Common (Methylpred (Methylpred 5-18 S pirit nisolone) nisolone) 00:00: - C HI 40mg 40mg 00 [facility] Bupivicaine Bupivicaine 2019-0 No 1mL Common [place] 5-18 Spirit 00:00: - [facility]I 00 [facility] testosteron 2014-10 Yes 200mg 200 mg [...] Medica l capsule for Muscle Branch Spasms. SERTraline 2014-10 Yes 100mg Take 1 Tab [...] mg 00 bedtime. Medical tablet Branch SERTraline 2015-1 Yes 100mg Take 1 Tab Univers (ZOLOFT) [...] 10 mg 00 bedtime. Medical tablet Branch Clonazepam Clonazepam Yes Alvin not Common [place] defined [facility] Amphetamine Amphetamine Yes Alvin not Common -Dextroamph -Dextroamph [place] defined [facility] etamine etamine [facility] Testosteron Testosteron Yes Alvin not Common e Cypionate e Cypionate [place] defined [facility] Sertraline Sertraline Yes Alvin not Common HCl HCl [place] defined [facility] Meloxicam Meloxicam Yes Alvin TAKE 1 Common [place] TABLET BY Spirit MOUTH - CHI DAILY [facility] Meloxicam Meloxicam No Meloxicam 7.5 MG 7.5 MG 7.5 MG Levothyroxi Levothyroxi No QD Levothyrox ne Sodium ne Sodium ine Sodium 125 MCG 125 MCG 125 MCG Testosteron Testosteron No Testostero e Cypionate e Cypionate ne Cypionate Levothyroxi Levothyroxi No Levothyrox ne Sodium ne Sodium ine Sodium 50 MCG 50 MCG 50 MCG Sertraline Sertraline No 2{table QD Sertraline HCl 100 MG HCl 100 MG t} HCl 100 MG Sertraline Sertraline No Sertraline HCl 100 MG HCl 100 MG HCl 100 MG Sertraline Sertraline No Sertraline HCl 100 MG HCl 100 MG HCl 100 MG Levothyroxi Levothyroxi No Levothyrox ne Sodium ne Sodium ine Sodium 50 MCG 50 MCG 50 MCG Meloxicam Meloxicam No Meloxicam 7.5 MG 7.5 MG 7.5 MG Sertraline Sertraline No 2{table QD Sertraline HCl 100 MG HCl 100 MG t} HCl 100 MG Levothyroxi Levothyroxi No Levothyrox ne Sodium ne Sodium ine Sodium 100 MCG 100 MCG 100 MCG Levothyroxi Levothyroxi No QD Levothyrox ne Sodium ne Sodium ine Sodium 125 MCG 125 MCG 125 MCG Testosteron Testosteron No Testostero e Cypionate e Cypionate ne Cypionate Meloxicam Meloxicam No Meloxicam 7.5 MG 7.5 MG 7.5 MG Sertraline Sertraline No Sertraline HCl 100 MG HCl 100 MG HCl 100 MG Levothyroxi Levothyroxi No Levothyrox ne Sodium ne Sodium ine Sodium 100 MCG 100 MCG 100 MCG Sertraline Sertraline No 2{table QD Sertraline HCl 100 MG HCl 100 MG t} HCl 100 MG Levothyroxi Levothyroxi No Levothyrox ne Sodium ne Sodium ine Sodium 50 MCG 50 MCG 50 MCG Levothyroxi Levothyroxi No QD Levothyrox ne Sodium ne Sodium ine Sodium 125 MCG 125 MCG 125 MCG Testosteron Testosteron No Testostero e Cypionate e Cypionate ne Cypionate Sertraline Sertraline No Sertraline HCl 100 MG HCl 100 MG HCl 100 MG Levothyroxi Levothyroxi No QD Levothyrox ne Sodium ne Sodium ine Sodium 112 MCG 112 MCG 112 MCG Meloxicam Meloxicam No Meloxicam 7.5 MG 7.5 MG 7.5 MG Levothyroxi Levothyroxi No Levothyrox ne Sodium ne Sodium ine Sodium 50 MCG 50 MCG 50 MCG Testosteron Testosteron No Testostero e Cypionate e Cypionate ne Cypionate Sertraline Sertraline No 2{table QD Sertraline HCl 100 MG HCl 100 MG t} HCl 100 MG Levothyroxi Levothyroxi No Levothyrox ne Sodium ne Sodium ine Sodium 100 MCG 100 MCG 100 MCG Testosteron Testosteron No Testostero e Cypionate e Cypionate ne Cypionate Sertraline Sertraline No 2{table QD Sertraline HCl 100 MG HCl 100 MG t} HCl 100 MG Levothyroxi Levothyroxi No Levothyrox ne Sodium ne Sodium ine Sodium 100 MCG 100 MCG 100 MCG Levothyroxi Levothyroxi No QD Levothyrox ne Sodium ne Sodium ine Sodium 112 MCG 112 MCG 112 MCG Meloxicam Meloxicam No Meloxicam 7.5 MG 7.5 MG 7.5 MG Levothyroxi Levothyroxi No Levothyrox ne Sodium ne Sodium ine Sodium 50 MCG 50 MCG 50 MCG Sertraline Sertraline No Sertraline HCl 100 MG HCl 100 MG HCl 100 MG Testosteron Testosteron No Testostero e Cypionate e Cypionate ne Cypionate Sertraline Sertraline No 2{table QD Sertraline HCl 100 MG HCl 100 MG t} HCl 100 MG Levothyroxi Levothyroxi No Levothyrox ne Sodium ne Sodium ine Sodium 50 MCG 50 MCG 50 MCG Meloxicam Meloxicam No Meloxicam 7.5 MG 7.5 MG 7.5 MG Sertraline Sertraline No Sertraline HCl 100 MG HCl 100 MG HCl 100 MG Levothyroxi Levothyroxi No QD Levothyrox ne Sodium ne Sodium ine Sodium 112 MCG 112 MCG 112 MCG Levothyroxi Levothyroxi No Levothyrox ne Sodium ne Sodium ine Sodium 100 MCG 100 MCG 100 MCG Levothyroxi Levothyroxi No Levothyrox ne Sodium ne Sodium ine Sodium 50 MCG 50 MCG 50 MCG Levothyroxi Levothyroxi No QD Levothyrox ne Sodium ne Sodium ine Sodium 112 MCG 112 MCG 112 MCG Meloxicam Meloxicam No Meloxicam 7.5 MG 7.5 MG 7.5 MG Testosteron Testosteron No Testostero e Cypionate e Cypionate ne Cypionate Sertraline Sertraline No 2{table QD Sertraline HCl 100 MG HCl 100 MG t} HCl 100 MG Levothyroxi Levothyroxi No Levothyrox ne Sodium ne Sodium ine Sodium 100 MCG 100 MCG 100 MCG Sertraline Sertraline No Sertraline HCl 100 MG HCl 100 MG HCl 100 MG Meloxicam Meloxicam No Meloxicam 7.5 MG 7.5 MG 7.5 MG Levothyroxi Levothyroxi No Levothyrox ne Sodium ne Sodium ine Sodium 100 MCG 100 MCG 100 MCG Sertraline Sertraline No 2{table QD Sertraline HCl 100 MG HCl 100 MG t} HCl 100 MG Testosteron Testosteron No Testostero e Cypionate e Cypionate ne Cypionate Levothyroxi Levothyroxi No Levothyrox ne Sodium ne Sodium ine Sodium 50 MCG 50 MCG 50 MCG Levothyroxi Levothyroxi No QD Levothyrox ne Sodium ne Sodium ine Sodium 112 MCG 112 MCG 112 MCG Sertraline Sertraline No Sertraline HCl 100 MG HCl 100 MG HCl 100 MG Meloxicam Meloxicam No Meloxicam 7.5 MG 7.5 MG 7.5 MG Levothyroxi Levothyroxi No Levothyrox ne Sodium ne Sodium ine Sodium 100 MCG 100 MCG 100 MCG Sertraline Sertraline No 2{table QD Sertraline HCl 100 MG HCl 100 MG t} HCl 100 MG Testosteron Testosteron No Testostero e Cypionate e Cypionate ne Cypionate Levothyroxi Levothyroxi No Levothyrox ne Sodium ne Sodium ine Sodium 50 MCG 50 MCG 50 MCG Levothyroxi Levothyroxi No QD Levothyrox ne Sodium ne Sodium ine Sodium 112 MCG 112 MCG 112 MCG Sertraline Sertraline No Sertraline HCl 100 MG HCl 100 MG HCl 100 MG Vital Signs Vital Name Observation Time Observation Value Comments Source height 2022-07-20 11:10:00 70 [in_i] [facility] 11:10:00 245 [lb_av] [facility] temperature 2022-07-20 11:10:00 98 [degF] Common S pirit [facility] bmi 2022-07-20 11:10:00 35.15 kg/m2 Common S pirit [facility] blood pressure 2022-07-20 11:10:00 138 mm[Hg] Common Spirit - systolic [facility] blood pressure 2022-07-20 11:10:00 88 mm[Hg] Common Spirit - diastolic [facility] height 2022-06-02 10:15:00 70 [in_i] Common S pirit [facility] weight 2022-06-02 10:15:00 246.6 [lb_av] Common [facility] temperature 2022-06-02 10:15:00 98.3 [degF] Common S pirit [facility] bmi 2022-06-02 10:15:00 35.38 kg/m2 Common [facility] oximetry 2022-06-02 10:15:00 99 % [facility] respiratory rate 2022-06-02 10:15:00 16 /min Comm on [facility] blood pressure 2022-06-02 10:15:00 159 mm[Hg] Common Spirit - systolic [facility] blood pressure 2022-06-02 10:15:00 79 mm[Hg] Common [facility] - diastolic [facility] height 2022-05-12 07:50:00 70 [in_i] Common [facility] weight 2022-05-12 07:50:00 245 [lb_av] [facility] temperature 2022-05-12 07:50:00 98 [degF] Common [facility] bmi 2022-05-12 07:50:00 35.15 kg/m2 [facility] blood pressure 2022-05-12 07:50:00 120 mm[Hg] Common [facility] - systolic [facility] blood pressure 2022-05-12 07:50:00 80 mm[Hg] Common Spirit - diastolic [facility] height 2022-05-03 09:15:00 70 [in_i] Common [facility] weight 2022-05-03 09:15:00 245.8 [lb_av] Common [facility] temperature 2022-05-03 09:15:00 98.2 [degF] Common [facility] bmi 2022-05-03 09:15:00 35.26 kg/m2 [facility] oximetry 2022-05-03 09:15:00 98 % [facility] respiratory rate 2022-05-03 09:15:00 16 /min Comm on [facility] blood pressure 2022-05-03 09:15:00 158 mm[Hg] Common Spirit - systolic [facility] blood pressure 2022-05-03 09:15:00 88 mm[Hg] Common Spirit - diastolic [facility] height 2022-03-16 09:20:00 70 [in_i] Common S pirit - [facility] weight 2022-03-16 09:20:00 240 [lb_av] Common S pirit - [facility] temperature 2022-03-16 09:20:00 98 [degF] Common S pirit - [facility] bmi 2022-03-16 09:20:00 34.43 kg/m2 Common S pirit - [facility] blood pressure 2022-03-16 09:20:00 130 mm[Hg] Common Spirit - systolic [facility] blood pressure 2022-03-16 09:20:00 76 mm[Hg] Common Spirit - diastolic [facility] height 2022-01-11 08:00:00 70 [in_i] Common S pirit - [facility] weight 2022-01-11 08:00:00 238 [lb_av] Common S pirit [facility] temperature 2022-01-11 08:00:00 97.4 [degF] Common S pirit - [facility] bmi 2022-01-11 08:00:00 34.15 kg/m2 Common S pirit - [facility] blood pressure 2022-01-11 08:00:00 132 mm[Hg] Common Spirit - systolic [facility] blood pressure 2022-01-11 08:00:00 75 mm[Hg] Common Spirit - diastolic [facility] height 2021-11-16 07:50:00 70 [in_i] Common S pirit - [facility] weight 2021-11-16 07:50:00 240 [lb_av] Common S pirit - [facility] temperature 2021-11-16 07:50:00 98 [degF] Common S pirit - [facility] bmi 2021-11-16 07:50:00 34.43 kg/m2 Common S pirit - [facility] blood pressure 2021-11-16 07:50:00 120 mm[Hg] Common Spirit - systolic [facility] blood pressure 2021-11-16 07:50:00 80 mm[Hg] Common [facility] - diastolic [facility] height 2021-09-14 08:00:00 70 [in_i] Common [facility] weight 2021-09-14 08:00:00 250.2 [lb_av] Common [facility] temperature 2021-09-14 08:00:00 97.3 [degF] Common [facility] bmi 2021-09-14 08:00:00 35.9 kg/m2 Common S [facility] oximetry 2021-09-14 08:00:00 100 % [facility] respiratory rate 2021-09-14 08:00:00 18 /min Comm on Spirit - [facility] blood pressure 2021-09-14 08:00:00 138 mm[Hg] Common [facility] - systolic [facility] blood pressure 2021-09-14 08:00:00 78 mm[Hg] Common [facility] - diastolic [facility] Systolic blood 2021-06-04 16:02:00 165 mm[Hg] [facility] Diastolic blood 2021-06-04 16:02:00 77 mm[Hg] [facility] Body temperature 2021-06-04 15:58:00 [facility]44 [facility] 2021-06-04 15:58:00 17 /min [facility] height 2021-06-04 15:58:00 175.3 cm [facility] Body weight 2021-06-04 15:58:00 108.863 kg [facility] BMI 2021-06-04 15:58:00 35.44 kg/m2 [facility] Oxygen saturation in 2021-06-04 15:58:00 98 /min [facility] blood by [facility] Pulse oximetry Branch Heart rate 2021-06-04 15:58:00 73 /min [facility] [place] [facility] Systolic blood 2020-12-13 15:03:00 171 mm[Hg] [facility] [place] [facility] Diastolic blood 2020-12-13 15:03:00 98 mm[Hg] [facility] [place] [facility] Heart rate 2020-12-13 15:03:00 80 /min [facility] [place] [facility] Body temperature 2020-12-13 15:03:00 36.28 Cornelia [facility] [place] [facility] Respiratory rate 2020-12-13 15:03:00 18 /min [facility] [place] [facility] Body weight 2020-12-13 15:03:00 113.399 kg [facility] [place] [facility] Oxygen saturation in 2020-12-13 15:03:00 100 /min [facility] blood by [place] [employer] danielle Pulse oximetry Branch Systolic blood 2020-12-13 15:03:00 171 mm[Hg] [facility] [place] [facility] Diastolic blood 2020-12-13 15:03:00 98 mm[Hg] [facility]ive [facility] pressure [place] [facility] Heart rate 2020-12-13 15:03:00 80 /min [facility] [place] [facility] Body temperature 2020-12-13 15:03:00 36.28 Cornelia [facility] [place] [facility] Respiratory rate 2020-12-13 15:03:00 18 /min [facility] [place] [facility] Body weight 2020-12-13 15:03:00 113.399 kg [facility] [place] [facility] Oxygen saturation in 2020-12-13 15:03:00 100 /min [facility] Arterial blood by [facility] Pulse oximetry Branch Procedures Procedure Date / Time Performed Performing Clinician [facility] ASSIGNMENT OF BENEFITS 2020-12-13 15:12:04 Doctor Unassigned, No [facility] Name Medical Branch CONSENT/REFUSAL FOR 2020-12-13 14:49:57 Doctor Un[facility]igned, No [facility] Branch TREATMENT NOTICE OF PRIVACY 2020-12-13 14:49:09 Doctor Unassigned, No [facility] Branch Encounters Start End Encounter Admission Attending Care Care Encounter Source Date/Time Date/Time Type Type Clinicians Facility Department ID 2022-05-19 Outpatient Ba, STLMLC STLMLC [id number] Common 08:45:01 Alberto [facility] 2022-05-11 Outpatient Ba, STLMLC STLMLC [id number] Common 08:36:01 Alberto [facility] 2022-03-15 Outpatient Ba, STLMLC STLMLC [id number] Common 15:44:00 Alberto [facility] 2022-01-20 Outpatient Ba, STLMLC STLMLC [id number] Common 14:51:02 Alberto [facility] 2022-01-16 Outpatient Ba, STLMLC STLMLC [id number] Common 09:05:00 Alberto [facility] 2022-01-09 Outpatient Ba, STLMLC STLMLC [id number] Common 08:50:02 Alberto [facility] 2021-12-20 Outpatient Ba, STLMLC STLMLC [id number] Common 10:18:02 Alberto [facility] 2021-11-23 Outpatient Ba, STLMLC STLMLC [id number] Common 14:24:33 Alberto [id number] [facility] 2021-11-23 Outpatient Ba, STLMLC STLMLC [id number] Common 14:13:44 Alberto 95802 [facility] 2021-11-23 Outpatient Ba, STLMLC STLMLC [id number] Common 14:02:32 Alberto 87569 [facility] 2021-11-23 Outpatient Ba, STLMLC STLMLC [id number] Common 13:33:46 Alberto [facility] 2021-11-23 Outpatient Ba, STLMLC STLMLC [id number] Common 13:33:20 Alberto [facility] 2021-11-23 Outpatient Ba, STLMLC STLMLC [id number] Common 13:22:51 Alberto 25300 [facility] 2021-11-23 Outpatient Ba, STLMLC STLMLC [id number] Common 13:11:25 Alberto 25398 [facility] 2021-11-23 Outpatient Ba, STLMLC STLMLC [id number] Common 12:49:49 Alberto 73943 [facility] 2021-11-23 Outpatient Ba, STLMLC STLMLC [id number] Common 12:49:22 Alberto 01552 [facility] 2021-11-23 Outpatient STLMLC STLMLC [id number] Common 12:38:54 [id number] [facility] 2021-11-23 Outpatient Chow, STLMLC STLMLC [id number] Common 11:30:00 Yemi Lowry [facility] 2021-11-23 Outpatient Chow, STLMLC STLMLC [id number] Common 11:16:59 Yemi Manzano [facility] 2021-08-27 Emergency [facility] [id number] Univers 23:38:51 ity of [facility] 2022-07-20 2022-07-20 OFFICE STLMLC STLMLC [id number] Co mmon 00:00:00 00:00:00 VISIT Spirit ESTAB PT - [facility] LEVEL 4 [facility] 2022-06-02 2022-06-02 OFFICE STLMLC STLMLC [id number] Co mmon 00:00:00 00:00:00 VISIT EST Spir it PT LEVEL 3 - [facility] 2022-05-12 2022-05-12 OFFICE STLMLC STLMLC [id number] Co mmon 00:00:00 00:00:00 VISIT Spirit ESTAB PT - [facility] LEVEL 4 [facility] 2022-05-03 2022-05-03 OFFICE STLMLC STLMLC [id number] Co mmon 00:00:00 00:00:00 VISIT Spirit ESTAB PT - [facility]I LEVEL 5 [facility] 2022-03-16 2022-03-16 OFFICE STLMLC STLMLC [id number] Co mmon 00:00:00 00:00:00 VISIT Spirit ESTAB PT - [facility] LEVEL 4 [facility] 2022-01-11 2022-01-11 OFFICE STLMLC STLMLC [id number] Co mmon 00:00:00 00:00:00 VISIT Spirit ESTAB PT - [facility] LEVEL 4 [facility] 2021-11-16 2021-11-16 OFFICE STLMLC STLMLC [id number] Co mmon 00:00:00 00:00:00 VISIT Spirit ESTAB PT - [facility] LEVEL 4 [facility] 2021-09-14 2021-09-14 OFFICE STLMLC STLMLC [id number] Co mmon 00:00:00 00:00:00 VISIT Spirit ESTAB PT - [facility] LEVEL 4 [facility] 2021-07-13 2021-07-13 Outpatient STLMLC STLMLC [id number] Common 00:00:00 00:00:00 [facility] 2021-06-28 2021-06-28 Outpatient STLMLC STLMLC [id number] Common 00:00:00 00:00:00 [facility] 2021-06-04 2021-06-04 [facility] [id number] Univers 10:54:07 11:14:07 Care [facility] [id number] it y of [place] [id number] Gabriele as Professio [phone] [address] Office [address] 2021-06-04 2021-06-04 Outpatient R YAW [facility] [id number] Univers 11:00:00 11:00:00 ELLEN ity of [facility] 2021-06-04 2021-06-04 Letter Doctor FAVIOLA [id number] Univers 00:00:00 00:00:00 (Out) Unassigned, JEM [id number] it[facility] of [place] [facility] [id number] Gabriele as [phone] [address] 2021-06-04 2021-06-04 Letter Doctor FAVIOLA [id number] Univers 00:00:00 00:00:00 (Out) Unassigned, JEM [id number] ity of [place] [facility] [id number] Gabriele as [phone] [address] 2021-05-31 2021-05-31 Outpatient STLMLC STLMLC [id number] Common 00:00:00 00:00:00 [facility] 2021-05-04 2021-05-04 Outpatient STLMLC STLMLC [id number] Common 00:00:00 00:00:00 [facility] 2021-04-05 2021-04-05 Outpatient STLMLC STLMLC [id number] Common 00:00:00 00:00:00 [facility] 2021-03-07 2021-03-07 Outpatient STLMLC STLMLC [id number] Common 00:00:00 00:00:00 [facility] 2021-02-04 2021-02-04 Outpatient STLMLC STLMLC [id number] Common 00:00:00 00:00:00 [facility] 2020-12-13 2020-12-13 Emergency [facility] [id number] 09:00:00 09:40:00 Mere Nick [id number] [place] [id number] [place] [phone] [facility] 2020-12-13 2020-12-13 Emergency [facility] [id number] [facility] 09:00:00 09:40:00 Mere Nick [id number] ity of [place] [id number] [facility] [phone] [facility] 084 Branch 2020-12-13 2020-12-13 Orders Doctor SALMERON [id number] 00:00:00 00:00:00 Only Unassigned, JEM [id number] [place] [facility] [phone] [facility] 2020-12-13 2020-12-13 Orders Doctor SALMERON [id number] Univers 00:00:00 00:00:00 Only Unassigned, JEM [id number] ity of [place] [facility] [id number] [facility] [phone] [address] 2020-07-07 2020-07-07 Outpatient Radha Sotelo [id number] Common 16:34:00 16:34:00 [facility] 2020-07-07 2020-07-07 Outpatient Radha Sotelo [id number] Common 15:00:00 15:00:00 t [facility] 2020-06-15 2020-06-15 Outpatient Jorje MAR, [facility] [id number] Univers 13:15:00 13:15:00 JOSE carr [facility] 2020-05-31 2020-05-31 Outpatient Radha Sotelo [id number] Common 13:12:00 13:12:00 t [facility] Bone [facility] Spiri t and Joint [facility] 2020-05-27 2020-05-27 Outpatient Radha Sotelo [id number] Common 08:00:00 08:00:00 t [facility] Bone [facility] Sp[facility] t [facility] 2020-05-24 2020-05-24 Outpatient Radha Garciat [id number] Common 09:47:00 09:47:00 t [facility] Bone [facility] Sp[facility] t and [facility] 2020-05-24 2020-05-24 Outpatient Radha Garciat [id number] Common 08:42:00 08:42:00 t [facility] Bone and Spiri t and Joint [facility] 2020-05-04 2020-05-04 Outpatient Brazally Garciat [id number] Common 09:18:00 09:18:00 t Bone Bone and Spiri t and Joint [facility] 2020-05-04 2020-05-04 Outpatient Brazally Garciat [id number] Common 08:20:00 08:20:00 t Bone Bone and Spiri t and Joint [facility] 2020-05-03 2020-05-03 [place] [id number] Common 16:03:00 16:03:00 t Bone Bone and Spiri t and Joint [facility] 2020-04-27 2020-04-27 Outpatient [place] [place] [id number] Common 10:30:00 10:30:00 t Bone Bone and Spiri t and Joint [facility] 2020-04-12 2020-04-12 Outpatient [place] [id number] Common 11:00:00 11:00:00 t Bone Bone and Spiri t and Joint [facility] 2020-04-08 2020-04-08 Outpatient [place] [place] [id number] Common 08:00:00 08:00:00 t Bone Bone and Spiri t and Joint [facility] 2020-04-01 2020-04-01 Outpatient [place] [place] [id number] Common 16:18:00 16:18:00 t Bone Bone and Spiri t and Joint [facility] 2020-03-30 2020-03-30 Outpatient [place] [id number] Common 09:05:00 09:05:00 t Bone Bone and Spiri t and Joint [facility] 2020-03-15 2020-03-15 Outpatient [place] [place] [id number] Common 10:30:00 10:30:00 t Bone Bone and Spiri t and Joint [facility] 2020-02-26 2020-02-26 Outpatient [place] [place] [id number] Common 09:42:00 09:42:00 t Bone Bone and Spiri t and Joint [facility] 2020-02-24 2020-02-24 Outpatient [place] [place] [id number] Common 11:54:00 11:54:00 t Bone Bone and Spiri t and Joint [facility] 2020-02-02 2020-02-02 Outpatient Radha Sotelo [id number] Common 08:00:00 08:00:00 t Bone Bone and Spiri t and Joint [facility] Results This patient has no known results.
[2022-08-21] MEDS ORDERED: TETRACAINE HCL 0.5% 4ML OPTH ONE (07:26)
[2022-08-21] MEDS ORDERED: FLUORESCEIN SODIUM 1 MG/WRAP ONE (07:26)
--- NOTE | 2022-08-21 07:39 | ER ---
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 Coronavirus screen: Vaccine status: Patient reports being unvaccinated. Client denies travel out of the [place] in the last 14 days. Ebola Screen: Patient negative for fever greater than or equal to 101.5 degrees Fahrenheit, and additional compatible Ebola Virus Disease symptoms Patient denies exposure to infectious person. The patient denies any loss of vision. Initial Sepsis Screen: Does the patient meet any 2 criteria? No. Patient's initial sepsis screen is negative. Does the patient have a suspected source of infection? No. Patient's initial sepsis screen is negative. Risk Assessment: Do you want to hurt yourself or someone else? Patient reports no desire to harm self or others. Onset of symptoms was August 20, 2022. 07:16 Method Of Arrival: Ambulatory vg1 07:16 Acuity: JUANA 3 vg1 07:20 Mechanism of Injury: Grinding. bp Triage Assessment: 07:21 General: Appears in no apparent distress. uncomfortable, Behavior is calm, cooperative. vg1 Pain: Complains of pain in right eye Pain currently is 3 out of 10 on a pain scale. Pain began 1 day ago. EENT: Eyes are tearing on right eye. Historical: - Allergies: 07:21 No Known Allergies; vg1 - Home Meds: 07:21 Clonazepam Oral [Active]; Klonopin Oral [Active]; sertraline Oral [Active]; vg1 - PMHx: 07:21 Anxiety; Arthritis; vg1 - Immunization history:: Client reports having NOT received the Covid vaccine. - Social history:: Smoking status: Patient denies any tobacco usage or history of. - Family history:: not pertinent. - Hospitalizations: : No recent hospitalization is reported. Screenin:20 Abuse screen: Denies threats or abuse. Denies injuries from another. Nutritional bp screening: No deficits noted. Tuberculosis screening: No symptoms or risk factors identified. Fall Risk None identified. Assessment: 07:20 General: SEE TRIAGE NOTE. bp 07:51 Reassessment: PT DC HOME AMBULATORY WITH FAMILY. bp Vital Signs: 07:16 BP 152 / 93; Pulse 99; Resp 17; Temp 98.1; Pulse Ox 99% on R/A; Weight 108.86 kg; vg1 Height 5 ft. 10 in. (177.80 cm); Pain 3/10; 07:16 Body Mass Index 34.44 (108.86 kg, 177.80 cm) vg1 ED Course: 07:09 Patient arrived in ED. am2 07:09 Alberto Ba DO is Private Physician. am2 07:10 Michael Ahn MD is Attending Physician. rn 07:20 Patient has correct armband on for positive identification. Bed in low position. Call bp light in reach. Side rails up X2. 07:21 Triage completed. vg1 07:21 Arm band placed on. vg1 07:24 Radha Nicolas, LEOBARDO is Primary Nurse. mb9 07:38 Jarett Hubbard MD is Referral Physician. rn 07:51 No provider procedures requiring assistance completed. Patient did not have IV access bp during this emergency room visit. Administered Medications: 07:34 Drug: Tetracaine Drops 0.5 % 1 drops {Note: BY .} Route: Ophthalmic; Site: right eye; bp Medication: 07:20 VIS not applicable for this client. bp Outcome: 07:38 Discharge ordered by MD. rn 07:51 Discharged to home ambulatory, with family. bp 07:51 Condition: stable 07:51 Discharge instructions given to patient, family, Instructed on discharge instructions, follow up and referral plans. medication usage, Demonstrated understanding of instructions, follow-up care, medications, Prescriptions given X 1. 07:52 Patient left the ED. bp Signatures: Michael Ahn MD MD rn Moreno, Amanda am2 Leoncio Neal RN RN bp Garcia, Victoria, RN RN vg1 Radha Nicolas RN RN mb9
--- NOTE | 2022-08-21 07:39 | EDPHYS ---
Physician Documentation [facility] Name: Catracho Motta Age: 46 yrs Sex: Male : 1975 Arrival Date: 08/21/2022 Time: 07:09 Bed 5 Private MD: Alberto Ba ED Physician Michael Ahn HPI: 08/21 08:06 This 46 yrs old Male presents to ER via Ambulatory with complaints of Eye Pain, Foreign rn Body In Eye. 08:06 The patient is experiencing foreign body sensation, pain, redness, tearing, The patient rn sustained None. to the right eye, caused by dust. Onset: The symptoms/episode began/occurred last night. Duration: the symptoms are continuous. Aggravated by nothing. Alleviated by eye flush. Associated signs and symptoms: Pertinent positives: None. Pertinent negatives: fever. Severity of symptoms: At their worst the symptoms were moderate in the emergency department the symptoms have improved. The patient has experienced similar episodes in the past. The patient has not recently seen a physician. Pt was working outside last night, felt like something got in right eye, thinks was trash or dust. No high speed injury to eye. REports irrigated right eye when it happened and felt better, able to sleep, then woke up today with more redness and watery eye. . Historical: - Allergies: 07:21 No Known Allergies; vg1 - Home Meds: 07:21 Clonazepam Oral [Active]; Klonopin Oral [Active]; sertraline Oral [Active]; vg1 - PMHx: 07:21 Anxiety; Arthritis; vg1 - Immunization history:: Client reports having NOT received the Covid vaccine. - Social history:: Smoking status: Patient denies any tobacco usage or history of. - Family history:: not pertinent. - Hospitalizations: : No recent hospitalization is reported. ROS: 08:06 Constitutional: Negative for fever, chills, and weight loss, Eyes: + foreign body, rn redness, and watery eye Exam: 08:06 Constitutional: This is a well developed, well nourished patient who is awake, alert, rn and in no acute distress. Head/Face: Normocephalic, atraumatic. Eyes: + right eye with erythema and clear drainage, no foreign body identified, eyelids everted, no focal fluorescein uptake, PERRL, slight erythema of conjunctiva. Vital Signs: 07:16 BP 152 / 93; Pulse 99; Resp 17; Temp 98.1; Pulse Ox 99% on R/A; Weight 108.86 kg; vg1 Height 5 ft. 10 in. (177.80 cm); Pain 3/10; 07:16 Body Mass Index 34.44 (108.86 kg, 177.80 cm) vg1 MDM: 07:10 Patient medically screened. rn 08:06 Differential diagnosis: Corneal abrasion of Corneal ulcer of Foreign body in Acute rn iritis of Data reviewed: vital signs, nurses notes, and as a result, I will discharge patient. Counseling: I had a detailed discussion with the patient and/or guardian regarding: the historical points, exam findings, and any diagnostic results supporting the discharge/admit diagnosis, the need for outpatient follow up, to return to the emergency department if symptoms worsen or persist or if there are any questions or concerns that arise at home. Response to treatment: the patient's symptoms have mildly improved after treatment, and as a result, I will discharge patient. Special discussion: I discussed with the patient/guardian in detail that at this point there is no indication for admission to the hospital. It is understood, however, that if the symptoms persist or worsen the patient needs to return immediately for re-evaluation. ED course: Eye irrigated again by nurse, pt feels better, will dc home with abx drops and ophtho f/u. . 08/21 07:24 Order name: Fluoresene Opth strip; Complete Time: 07:24 vg1 Administered Medications: 07:34 Drug: Tetracaine Drops 0.5 % 1 drops {Note: BY MD.} Route: Ophthalmic; Site: right eye; bp Disposition Summary: 08/21/22 07:38 Discharge Ordered Location: Home rn Problem: new rn Symptoms: have improved rn Condition: Stable rn Diagnosis - Injury of conjunctiva and corneal abrasion without foreign body, right eye rn Followup: rn - With: Jarett Hubbard MD - When: As needed - Reason: Recheck today's complaints, Re-evaluation by your physician Discharge Instructions: - Discharge Summary Sheet rn - Corneal Abrasion rn - Eye Foreign Body rn Forms: - Medication Reconciliation Form rn - Thank You Letter rn - Antibiotic broadcast journalist - Prescription Opioid Use rn - Work release form ss Prescriptions: - Vigamox 0.5 % Ophthalmic Drops - instill 1 drop by OPHTHALMIC route every 8 hours for 7 days; 5 milliliter; rn Refills: 0, Product Selection Permitted Signatures: Michael Ahn MD MD rn Peltier, Brian, RN RN Lindsey Bland, RN RN vg1
[2022-08-21 07:57] VITALS: BP 152/93; TEMP 98.1; O2SAT 99
== END 2022-08-21 07:52 | disposition home or self-care (01) ==
LOC: ER 07:06
DX: S05.01XA Injury of conjunctiva and corneal abrasion without foreign body, right eye, initial encounter (principal)
CPT/HCPCS: 99283

== ENCOUNTER 2024-08-13 22:13 | Emergency (ER) | payer OTHER, SELFPAY ==
--- OUTSIDE RECORDS SUMMARY | 2024-08-13 22:16 | XMS REPORT | Continuity of Care Document ---
Author Name Unknown Address [address] [place] [address] [facility] Address [address] [place] [address] Care Team Providers Care Load Dispatcher Local Name Role Phone Jose Mar MD Primary Care Physician Alberto Ba Attending Clinician Unavailable Yemi Chow Attending Clinician Unavailable Mumtaz Cope MD Attending Clinician [phone] AMINATA TEMPLE Attending Clinician Unavailable Aminata Temple MD Attending Clinician [phone] Ellen Tidwell MD Attending Clinician [phone] ELLEN TIDWELL Attending Clinician Unavailable Doctor Unassigned, [place] Attending Clinician U Mere Coyle DO Attending Clinician [phone] JOSE MAR Attending Clinician Unaaishwarya wilson Payers Payer Name Policy Type Policy Number Effective Date Expirati on Date Source [facility] 6 [id number] 2023 00:00:00 [facility] 6 [id number] [facility] [employer] 53 [id number] 2021 00:00:00 [facility] Problems Condition Name Condition Details Condition Category Status Onset Date Resolution Date Last Treatment Date Treating Clinician Comments Source Anxiety Anxiety Disease Active 2014-10 00:00: 00 [facility] Headache Headache Disease Active 2014-10 00:00: 00 [facility] Insomnia Insomnia Disease Active 2014-10 00:00: 00 [facility] Muscle spasm Muscle spasm Disease Active 2014-10 00:00: 00 [facility] Low back ache Low back ache Disease Active 2014-10 00:00: 00 [facility] [id number] Pain in joint of right elbow Problem [facility] [id number] Medial epicondyli tis of right elbow Problem [facility] 57253613 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 Problem [facility] [id number] Prostate nodule Problem [facility] [id number] Hypogonado tropic hypogonadi sm Problem [facility] [id number] Hypothyroi dism, unspecifie d type Problem [facility] [id number] Hyperestro genism in male Problem [facility] [id number] Mixed hyperlipid emia Problem [facility] Carpal tunnel syndrome Carpal tunnel syndrome, left Problem [facility] [id number] Current moderate episode of major depressive disorder without prior episode Problem [facility] [id number] Benzodiaze pine dependence , continuous Problem [facility] [id number] Attention deficit hyperactiv ity disorder (ADHD), predominan tly inattentiv e type Problem [facility] [id number] Hypothyroi dism (acquired) Problem [facility] [id number] Body mass index [BMI] 35.0-35.9, adult Problem [facility] [id number] Morbid (severe) obesity due to excess calories Problem [facility] 09206574 Generalize d anxiety disorder Problem [facility] [id number] Panic disorder [episodic paroxysmal anxiety] Problem [facility] [id number] Repetitive intrusions of sleep Problem [facility] [id number] 00 Daytime somnolence Problem [facility] 55488032 Chronic fatigue Problem [facility] [id number] Type 2 diabetes mellitus with hyperglyce ana, without long-term current use of insulin Problem [facility] Allergies, Adverse Reactions, Alerts Allergy Name Allergy Type Status Severity Reaction(s) Onset Date Inactive Date Treating Clinician Comments Source ALPRAZOL AM DRUG INGREDI Active Other-Cmnt 06-07 00:00: 00 [facility] Alprazol am Propensi ty to adverse reaction s Active Other - See comments 06-07 00:00: 00 Extreme aggitatio n [facility] CODEINE DRUG INGREDI Active Unknown-Cmnt 2014-10 00:00: 00 [facility] PROPOXYP HENE N-ACETAM INOPHEN DRUG Active Unknown-Cmnt 2014-10 00:00: 00 [facility] Codeine Propensi ty to adverse reaction s Active Unknown - See comments 2014-10 00:00: 00 [facility] Propoxyp hene N-Acetam inophen Propensi ty to adverse reaction s Active Unknown - See comments 2014-10 00:00: 00 [facility] codeine codeine Active Unknown [facility] Social History Social Habit Start Date Stop Date Quantity Comments Source Gender identity [facility] Sexual orientation U [facility] Exposure to SARS-CoV-2 (event) Not sure [facility] History of Tobacco Use [facility] Sex Assigned At [facility] History of Social function 2021-06-04 00:00:00 2021-06-04 00:00:00 [facility] Tobacco use and exposure 2021-06-04 00:00:00 2021-06-04 00:00:00 Smokeless tobacco non-user [facility] Smoking Status Start Date Stop Date Source Unknown if ever smoked [facility] Never Smoker [facility] Medications Ordered Medication Name Filled Medication Name Start Date Stop Date Current Medication? Ordering Clinician Indication Dosage Frequency Signature (SIG) Comments Components Source Amphetamine -Dextroamph etamine 30 MG Amphetamine -Dextroamph etamine 30 MG 2023-10 0-14 00:00: 00 No 1{table t} BID Amphetamin e-Dextroam phetamine 30 MG Adderall 15 MG Adderall 15 MG 07-28 00:00: 00 No 2{table t} BID Adderall 15 MG Meloxicam 7.5 MG Meloxicam 7.5 MG 07-07 00:00: 00 No 1{table t} QD Meloxicam 7.5 MG Lidocaine Lidocaine 07-07 00:00: 00 No 1mL [facility] Kenalog (Triamcinol one) Kenalog (Triamcinol one) 07-07 00:00: 00 No 1mL [facility] clonazePAM 2 MG clonazePAM 2 MG 06-23 00:00: 00 No 1{table t_at_be dtime} QD clonazePAM 2 MG ibuprofen 800 mg tablet 06-07 00:00: 00 Yes [id number] 800mg Take 1 tablet by mouth every 8 (eight) hours. [facility] erythromyci n 5 mg/gram (0.5 %) ophthalmic ointment 06-07 00:00: 00 Yes [id number] .5[in_u s] Place 0.5 Inches in both eyes 4 (four) times daily. [facility] testosteron e cypionate (DEPO-TESTO STERONE) 200 mg/mL injection 06-04 16:01: 17 Yes 200mg 200 mg by Intramuscu lar route once every month. [facility] cyclobenzap rine (AMRIX) 15 mg 24 hr capsule 06-04 16:01: 17 Yes 15mg Take 15 mg by mouth once daily as needed for Muscle Spasms. [facility] levothyroxi ne (SYNTHROID) 75 mcg tablet 06-04 16:00: 50 Yes 75ug Take 75 mcg by mouth every morning. [facility] testosteron e cypionate (DEPO-TESTO STERONE) 200 mg/mL injection 06-04 11:01: 17 Yes 200mg 200 mg by Intramuscu lar route once every month. [facility] cyclobenzap rine (AMRIX) 15 mg 24 hr capsule 06-04 11:01: 17 Yes 15mg Take 15 mg by mouth once daily as needed for Muscle Spasms. [facility] levothyroxi ne (SYNTHROID) 75 mcg tablet 06-04 11:00: 50 Yes 75ug Take 75 mcg by mouth every morning. [facility] cephALEXin (KEFLEX) 500 mg capsule 06-04 00:00: 00 06-10 04:59 :00 No [id number] 500mg Take 1 capsule by mouth 4 (four) times daily for 5 days. [facility] dextroamphe tamine-amph etamine 30 mg tablet 05-20 00:00: 00 Yes 30mg Take 30 mg by mouth 2 (two) times daily. [facility] ondansetron (ZOFRAN-ODT ) disintegrat ing tablet 4 mg 12-13 16:15: 00 12-13 15:05 :00 No 4mg 4 mg, Oral, ONCE, 1 dose, 12/13/20 at 1015, Routine [facility] testosteron e cypionate (DEPO-TESTO STERONE) 200 mg/mL injection 12-13 15:04: 06 Yes 200mg 200 mg by Intramuscu lar route once every month. [facility] levothyroxi ne (SYNTHROID) 75 mcg tablet 12-13 15:04: 06 Yes 75ug Take 75 mcg by mouth every morning. [facility] cyclobenzap rine (AMRIX) 15 mg 24 hr capsule 12-13 15:04: 06 Yes 15mg Take 15 mg by mouth once daily as needed for Muscle Spasms. [facility] Depo-Medrol (Methylpred nisolone) 40mg Depo-Medrol (Methylpred nisolone) 40mg 03-15 00:00: 00 No 40mg [facility] Bupivicaine [place] Bupivicaine [place] 03-15 00:00: 00 No 1mL [facility] testosteron e cypionate (DEPO-TESTO STERONE) 200 mg/mL injection 2014-10 19:32: 19 Yes 200mg 200 mg by Intramuscu lar route once every month. [facility] levothyroxi ne (SYNTHROID) 75 mcg tablet 2014-10 19:32: 19 Yes 75ug Take 75 mcg by mouth every morning. [facility] cyclobenzap rine (AMRIX) 15 mg 24 hr capsule 2014-10 19:32: 19 Yes 15mg Take 15 mg by mouth once daily as needed for Muscle Spasms. [facility] clonazePAM (KLONOPIN) 1 mg tablet 2014-10 00:00: 00 Yes 1mg Take 1 Tab by mouth 2 (two) times daily. [facility] cyclobenzap rine (FLEXERIL) 10 mg tablet 2014-10 00:00: 00 Yes 10mg Take 1 Tab by mouth at bedtime. [facility] SERTraline (ZOLOFT) 100 mg tablet 2014-10 00:00: 00 Yes 100mg Take 1 Tab by mouth daily. Take 1 1/2 Tab daily [facility] zolpidem (AMBIEN CR) 12.5 mg CR tablet 2014-10 00:00: 00 Yes 12.5mg Take 1 Tab by mouth at bedtime. [facility] Testosteron e Cypionate 200 MG/ML Testosteron e Cypionate 200 MG/ML No Testostero ne Cypionate 200 MG/ML Sertraline HCl 100 MG Sertraline HCl 100 MG No 2{table t} QD Sertraline HCl 100 MG Levothyroxi ne Sodium 112 MCG Levothyroxi ne Sodium 112 MCG No QD Levothyrox ine Sodium 112 MCG Ibuprofen Ibuprofen No Ibuprofen Vital Signs Vital Name Observation Time Observation Value Comments S ource height 2024-07-07 15:00:00 70 [in_i] Commo n [facility] weight 2024-07-07 15:00:00 234.5 [lb_av] Co mmon [facility] temperature 2024-07-07 15:00:00 97.8 [degF] Com [facility] bmi 2024-07-07 15:00:00 33.64 kg/m2 Comm on [facility] blood pressure systolic 2024-07-07 15:00:00 138 mm[Hg] [facility] blood pressure diastolic 2024-07-07 15:00:00 70 mm[Hg] [facility] temperature 2024-07-02 14:00:00 97.2 [degF] Com [facility] bmi 2024-07-02 14:00:00 33.43 kg/m2 Comm on [facility] oximetry 2024-07-02 14:00:00 98 % Commo n [facility] blood pressure systolic 2024-07-02 14:00:00 138 mm[Hg] [facility] blood pressure diastolic 2024-07-02 14:00:00 76 mm[Hg] [facility] height 2024-07-02 14:00:00 70 [in_i] Commo n [facility] weight 2024-07-02 14:00:00 233 [lb_av] Comm on [facility] height 2024-05-27 11:00:00 70 [in_i] Commo n [facility] weight 2024-05-27 11:00:00 240 [lb_av] Comm on [facility] temperature 2024-05-27 11:00:00 98.0 [degF] Com [facility] bmi 2024-05-27 11:00:00 34.43 kg/m2 Comm on [facility] height 2024-04-29 16:30:00 70 [in_i] Commo n [facility] weight 2024-04-29 16:30:00 230 [lb_av] Comm on [facility] temperature 2024-04-29 16:30:00 98 [degF] Comm on [facility] bmi 2024-04-29 16:30:00 33 kg/m2 Commo n [facility] blood pressure systolic 2024-04-29 16:30:00 120 mm[Hg] [facility] blood pressure diastolic 2024-04-29 16:30:00 82 mm[Hg] [facility] height 2024-02-12 16:20:00 70 [in_i] Commo n [facility] weight 2024-02-12 16:20:00 238.0 [lb_av] Co mmon [facility] temperature 2024-02-12 16:20:00 97.7 [degF] Com mon [facility] bmi 2024-02-12 16:20:00 34.15 kg/m2 Comm on [facility] oximetry 2024-02-12 16:20:00 96 % Commo [facility] respiratory rate 2024-02-12 16:20:00 17 /min [facility] blood pressure systolic 2024-02-12 16:20:00 134 mm[facility]Hg[facility] blood pressure diastolic 2024-02-12 16:20:00 72 mm[Hg] [facility] height 2023-12-18 08:00:00 70 [in_i] Commo n [facility] weight 2023-12-18 08:00:00 249 [lb_av] Comm on [facility] temperature 2023-12-18 08:00:00 98 [degF] Comm on [facility] bmi 2023-12-18 08:00:00 35.72 kg/m2 Comm on [facility] blood pressure systolic 2023-12-18 08:00:00 120 mm[Hg] [facility] blood pressure diastolic 2023-12-18 08:00:00 80 mm[Hg] [facility] height 2023-10-18 09:30:00 70 [in_i] Commo n [facility] weight 2023-10-18 09:30:00 245 [lb_av] Comm on [facility] temperature 2023-10-18 09:30:00 98 [degF] Comm on [facility] bmi 2023-10-18 09:30:00 35.15 kg/m2 Comm on [facility] blood pressure systolic 2023-10-18 09:30:00 120 mm[Hg] [facility] blood pressure diastolic 2023-10-18 09:30:00 80 mm[Hg] [facility] height 2023-08-10 10:20:00 70 [in_i] Commo n [facility] weight 2023-08-10 10:20:00 237 [lb_av] Comm on [facility] bmi 2023-08-10 10:20:00 34 kg/m2 Com[facility] blood pressure systolic 2023-08-10 10:20:00 124 mm[Hg] [facility] blood pressure diastolic 2023-08-10 10:20:00 76 mm[Hg] [facility] Systolic blood pressure 2023-06-07 09:48:00 144 mm[Hg] [facility] Diastolic blood pressure 2023-06-07 09:48:00 82 mm[Hg] [facility] Heart rate 2023-06-07 09:48:00 69 /min [facility] Body temperature 2023-06-07 09:48:00 36.61 [facility] Respiratory rate 2023-06-07 09:48:00 18 /min [facility] Body height 2023-06-07 09:48:00 175.3 cm [facility] Body weight 2023-06-07 09:48:00 113.399 kg [facility] BMI 2023-06-07 09:48:00 36.92 kg/m2 [facility] Oxygen saturation in Arterial blood by Pulse oximetry 2023-06-07 09:48:00 99 /min [facility] height 2023-05-28 16:40:00 70 [in_i] Commo n [facility] weight 2023-05-28 16:40:00 237 [lb_av] Comm on [facility] temperature 2023-05-28 16:40:00 98 [degF] Comm on [facility] bmi 2023-05-28 16:40:00 34 kg/m2 Com[facility] blood pressure systolic 2023-05-28 16:40:00 120 mm[Hg] [facility] blood pressure diastolic 2023-05-28 16:40:00 80 mm[Hg] [facility] height 2023-03-28 15:20:00 70 [in_i] Commo n [facility] weight 2023-03-28 15:20:00 241.8 [lb_av] Co [facility] temperature 2023-03-28 15:20:00 97.7 [degF] Com mon [facility] bmi 2023-03-28 15:20:00 34.69 kg/m2 Comm on [facility] oximetry 2023-03-28 15:20:00 97 % Commo [facility] respiratory rate 2023-03-28 15:20:00 17 /min [facility] blood pressure systolic 2023-03-28 15:20:00 139 mm[Hg] [facility] blood pressure diastolic 2023-03-28 15:20:00 73 mm[Hg] [facility] height 2023-02-12 09:00:00 70 [in_i] Commo n [facility] weight 2023-02-12 09:00:00 245 [lb_av] Comm on [facility] bmi 2023-02-12 09:00:00 35.15 kg/m2 Comm on [facility] height 2023-01-23 13:00:00 70 [in_i] Commo n [facility] weight 2023-01-23 13:00:00 245 [lb_av] Comm on [facility] temperature 2023-01-23 13:00:00 98 [degF] Comm on [facility] bmi 2023-01-23 13:00:00 35.15 kg/m2 Comm on [facility] blood pressure systolic 2023-01-23 13:00:00 120 mm[Hg] [facility] blood pressure diastolic 2023-01-23 13:00:00 80 mm[Hg] [facility] height 2022-11-21 08:00:00 70 [in_i] Commo n [facility] weight 2022-11-21 08:00:00 245 [lb_av] Comm on [facility] temperature 2022-11-21 08:00:00 98 [degF] Comm on [facility] bmi 2022-11-21 08:00:00 35.15 kg/m2 Comm on [facility] blood pressure systolic 2022-11-21 08:00:00 138 mm[Hg] [facility] blood pressure diastolic 2022-11-21 08:00:00 76 mm[Hg] [facility] height 2022-09-19 11:40:00 70 [in_i] Commo n [facility] weight 2022-09-19 11:40:00 245 [lb_av] Comm on [facility] temperature 2022-09-19 11:40:00 98 [degF] Comm on [facility] bmi 2022-09-19 11:40:00 35.15 kg/m2 Comm on [facility] blood pressure systolic 2022-09-19 11:40:00 142 mm[Hg] [facility] blood pressure diastolic 2022-09-19 11:40:00 80 mm[Hg] [facility] height 2022-08-30 09:00:00 70 [in_i] Commo n [facility] weight 2022-08-30 09:00:00 246.8 [lb_av] Co [facility] temperature 2022-08-30 09:00:00 97.5 [degF] Com mon [facility] bmi 2022-08-30 09:00:00 35.41 kg/m2 Comm on [facility] oximetry 2022-08-30 09:00:00 98 % Commo [facility] respiratory rate 2022-08-30 09:00:00 18 /min [facility] blood pressure systolic 2022-08-30 09:00:00 158 mm[Hg] [facility] blood pressure diastolic 2022-08-30 09:00:00 87 mm[Hg] [facility] height 2022-07-20 11:10:00 70 [in_i] Commo n [facility] weight 2022-07-20 11:10:00 245 [lb_av] Comm on [facility] temperature 2022-07-20 11:10:00 98 [degF] Comm on [facility] bmi 2022-07-20 11:10:00 35.15 kg/m2 Comm on [facility] blood pressure systolic 2022-07-20 11:10:00 138 mm[Hg] [facility] blood pressure diastolic 2022-07-20 11:10:00 88 mm[Hg] [facility] height 2022-06-02 10:15:00 70 [in_i] Commo n [facility] weight 2022-06-02 10:15:00 246.6 [lb_av] Co mmon [facility] temperature 2022-06-02 10:15:00 98.3 [degF] Com mon [facility] bmi 2022-06-02 10:15:00 35.38 kg/m2 Comm on [facility] oximetry 2022-06-02 10:15:00 99 % Commo [facility] respiratory rate 2022-06-02 10:15:00 16 /min [facility] blood pressure systolic 2022-06-02 10:15:00 159 mm[Hg] [facility] blood pressure diastolic 2022-06-02 10:15:00 79 mm[Hg] [facility] height 2022-05-12 07:50:00 70 [in_i] Commo n [facility] weight 2022-05-12 07:50:00 245 [lb_av] Comm on [facility] temperature 2022-05-12 07:50:00 98 [degF] Comm on [facility] bmi 2022-05-12 07:50:00 35.15 kg/m2 Comm on [facility] blood pressure systolic 2022-05-12 07:50:00 120 mm[Hg] [facility] blood pressure diastolic 2022-05-12 07:50:00 80 mm[Hg] [facility] height 2022-05-03 09:15:00 70 [in_i] Commo n [facility] weight 2022-05-03 09:15:00 245.8 [lb_av] Co [facility] temperature 2022-05-03 09:15:00 98.2 [degF] Com mon [facility] bmi 2022-05-03 09:15:00 35.26 kg/m2 Comm on [facility] oximetry 2022-05-03 09:15:00 98 % [facility] respiratory rate 2022-05-03 09:15:00 16 /min [facility] blood pressure systolic 2022-05-03 09:15:00 158 mm[Hg] [facility] blood pressure diastolic 2022-05-03 09:15:00 88 mm[Hg] [facility] height 2022-03-16 09:20:00 70 [in_i] Commo [facility] weight 2022-03-16 09:20:00 240 [lb_av] Comm on [facility] temperature 2022-03-16 09:20:00 98 [degF] Comm on [facility] bmi 2022-03-16 09:20:00 34.43 kg/m2 [facility] blood pressure systolic 2022-03-16 09:20:00 130 mm[Hg] [facility] blood pressure diastolic 2022-03-16 09:20:00 76 mm[Hg] [facility] height 2022-01-11 08:00:00 70 [in_i] [facility] weight 2022-01-11 08:00:00 238 [lb_av] Comm on [facility] temperature 2022-01-11 08:00:00 97.4 [degF] Com [facility] bmi 2022-01-11 08:00:00 34.15 kg/m2 [facility] blood pressure systolic 2022-01-11 08:00:00 132 mm[Hg] [facility] blood pressure diastolic 2022-01-11 08:00:00 75 mm[Hg] [facility] height 2021-11-16 07:50:00 70 [in_i] Commo [facility] weight 2021-11-16 07:50:00 240 [lb_av] Comm on [facility] temperature 2021-11-16 07:50:00 98 [degF] Comm on [facility] bmi 2021-11-16 07:50:00 34.43 kg/m2 [facility] blood pressure systolic 2021-11-16 07:50:00 120 mm[Hg] [facility] blood pressure diastolic 2021-11-16 07:50:00 80 mm[Hg] [facility] height 2021-10-11 10:40:00 70 [in_i] Commo n [facility] weight 2021-10-11 10:40:00 250 [lb_av] Comm on [facility] temperature 2021-10-11 10:40:00 98.6 [degF] Com mon [facility] bmi 2021-10-11 10:40:00 35.87 kg/m2 Comm on [facility] oximetry 2021-10-11 10:40:00 96 % Commo [facility] blood pressure systolic 2021-10-11 10:40:00 140 mm[Hg] [facility] blood pressure diastolic 2021-10-11 10:40:00 81 mm[Hg] [facility] height 2021-09-14 08:00:00 70 [in_i] Commo n [facility] weight 2021-09-14 08:00:00 250.2 [lb_av] Co [facility]mon [facility] temperature 2021-09-14 08:00:00 97.3 [degF] Com mon [facility] bmi 2021-09-14 08:00:00 35.9 kg/m2 Commo [facility] oximetry 2021-09-14 08:00:00 100 % Commo n [facility] respiratory rate 2021-09-14 08:00:00 18 /min [facility] blood pressure systolic 2021-09-14 08:00:00 138 mm[Hg] [facility] blood pressure diastolic 2021-09-14 08:00:00 78 mm[Hg] [facility] Systolic blood pressure 2021-06-04 16:02:00 165 mm[Hg] [facility] Diastolic blood pressure 2021-06-04 16:02:00 77 mm[Hg] [facility] Body temperature 2021-06-04 15:58:00 36.44 [facility] Respiratory rate 2021-06-04 15:58:00 17 /min [facility] Body height 2021-06-04 15:58:00 175.3 cm [facility] Body weight 2021-06-04 15:58:00 108.863 kg [facility] BMI 2021-06-04 15:58:00 35.44 kg/m2 [facility] Oxygen saturation in Arterial blood by Pulse oximetry 2021-06-04 15:58:00 98 /min [facility] Heart rate 2021-06-04 15:58:00 73 /min [facility] Systolic blood pressure 2020-12-13 15:03:00 171 mm[Hg] [facility] Diastolic blood pressure 2020-12-13 15:03:00 98 mm[Hg] [facility] Heart rate 2020-12-13 15:03:00 80 /min [facility] Body temperature 2020-12-13 15:03:00 36.28 [facility] Respiratory rate 2020-12-13 15:03:00 18 /min [facility] Body weight 2020-12-13 15:03:00 113.399 kg [facility] Oxygen saturation in Arterial blood by Pulse oximetry 2020-12-13 15:03:00 100 /min [facility] Systolic blood pressure 2020-12-13 15:03:00 171 mm[Hg] [facility] Diastolic blood pressure 2020-12-13 15:03:00 98 mm[Hg] [facility] Heart rate 2020-12-13 15:03:00 80 /min [facility] Body temperature 2020-12-13 15:03:00 36.28 [facility] Respiratory rate 2020-12-13 15:03:00 18 /min [facility] Body weight 2020-12-13 15:03:00 113.399 kg [facility] Oxygen saturation in Arterial blood by Pulse oximetry 2020-12-13 15:03:00 100 /min [facility] Procedures Procedure Date / Time Performed Performing Clinicia n Source NOTICE OF PRIVACY PRACTICES 2023-06-07 09:43:32 Doctor Unassigned, [place] [facility] CONSENT/REFUSAL FOR DIAGNOSIS AND TREATMENT 2023-06-07 09:43:02 Doctor Unassigned, [place] [facility] ASSIGNMENT OF BENEFITS 2020-12-13 15:12:04 Docto r Unassigned, [place] [facility] CONSENT/REFUSAL FOR DIAGNOSIS AND TREATMENT 2020-12-13 14:49:57 Doctor Unassigned, [facility] NOTICE OF PRIVACY PRACTICES 2020-12-13 14:49:09 Doctor Unassigned, [facility] Encounters Start Date/Time End Date/Time Encounter Type Admission Type Attending [facility] Care Facility Care Department Encounter ID Source 2024-08-12 11:49:00 [facility] [id number] [facility] 2024-07-09 11:38:00 Outpatient Ba, Alberto [facility] [id number] [facility] 2024-06-24 14:56:00 [facility] [id number] [facility] 2024-05-27 08:55:00 [facility] [id number] [facility] 2023-05-24 14:54:00 [facility] [id number] [facility] 2023-03-14 11:22:00 Outpatient Ba, Alberto [facility] [id number] [facility] 2022-11-21 07:44:01 Outpatient Ba, Alberto [facility] [id number] [facility] 2022-10-12 08:53:01 Outpatient Ba, Alberto [facility] [id number] [facility] 2022-10-09 09:56:02 Outpatient Ba, Alberto [facility] [id number] [facility] 2022-09-15 10:52:02 Outpatient Ba, Alberto [facility] [id number] [facility] 2022-05-19 08:45:01 Outpatient Ba, Alberto [facility] [id number] [facility] 2022-05-11 08:36:01 Outpatient Ba, Alberto [facility] [id number] [facility] 2022-03-15 15:44:00 Outpatient Ba, Alberto [facility] [id number] [facility] 2022-01-20 14:51:02 Outpatient Ba, Alberto [facility] [id number] [facility] 2022-01-16 09:05:00 Outpatient Ba, Alberto [facility] [id number] [facility] 2022-01-09 08:50:02 Outpatient Ba, Alberto [facility] [id number] [facility] 2021-12-20 10:18:02 Outpatient Ba, Alberto [facility] [id number] [facility] 2021-11-23 14:24:33 Outpatient Ba, Alberto [facility] [id number] [facility] 2021-11-23 14:13:44 Outpatient Ba, Alberto [facility] [id number] [facility] 2021-11-23 14:02:32 Outpatient Ba, Alberto [facility] [id number] [facility] 2021-11-23 13:33:46 Outpatient Ba, Alberto [facility] [id number] [facility] 2021-11-23 13:33:20 Outpatient Ba, Alberto [facility] [id number] [facility] 2021-11-23 13:22:51 Outpatient Ba, Alberto [facility] [id number] [facility] 2021-11-23 13:11:25 Outpatient Ba, Alberto [facility] [id number] [facility] 2021-11-23 12:49:49 Outpatient Ba, Alberto [facility] [id number] [facility] 2021-11-23 12:49:22 Outpatient Ba, Alberto [facility] [id number] [facility] 2021-11-23 12:38:54 Outpatient STLC [facility] [id number] [facility] 2021-11-23 11:30:00 Outpatient Chow, Yemi [facility] [id number] [facility] 2021-11-23 11:16:59 Outpatient Chow, Yemi ST[facility] ST[facility] [id number] [facility] 2021-08-27 23:38:51 Emergency [facility] [id number] [facility] 2024-08-11 00:00:00 2024-08-11 00:00:00 (TEL) [facility] [id number] [facility] 2024-07-28 00:00:00 2024-07-28 00:00:00 (TEL) [facility] [id number] [facility] 2024-07-24 00:00:00 2024-07-24 00:00:00 (TEL) [facility] [id number] [facility] 2024-07-07 00:00:00 2024-07-07 00:00:00 CONSULT - OFFICE, L3 [facility] [id number] [facility] 2024-07-02 00:00:00 2024-07-02 00:00:00 (TEL) [facility] [id number] [facility] 2024-07-02 00:00:00 2024-07-02 00:00:00 OFFICE VISIT ESTAB PT LEVEL 4 [facility] [id number] [facility] 2024-06-23 00:00:00 2024-06-23 00:00:00 (TEL) [facility] [id number] [facility] 2024-05-27 00:00:00 2024-05-27 00:00:00 OFFICE VISIT ESTAB PT LEVEL 3 [facility] ST[facility] [id number] [facility] 2024-05-26 00:00:00 2024-05-26 00:00:00 (TEL) [facility]C [facility] [id number] [facility] 2024-05-13 00:00:00 2024-05-13 00:00:00 (TEL) [facility] [id number] [facility] 2024-04-29 00:00:00 2024-04-29 00:00:00 OFFICE VISIT ESTAB PT LEVEL 4 [facility] [id number] [facility] 2024-04-29 00:00:00 2024-04-29 00:00:00 (TEL) [facility]C [facility] [id number] [facility] 2024-04-21 00:00:00 2024-04-21 00:00:00 (TEL) [facility] [id number] [facility] 2024-02-12 00:00:00 2024-02-12 00:00:00 (WELLNESS) Wellness Visit [facility] [id number] [facility] 2024-01-01 00:00:00 2024-01-01 00:00:00 Telephone Mumtaz Cope [facility] [id number] [facility] 2023-12-25 00:00:00 2023-12-25 00:00:00 (TEL) STLMLC ST[facility] [id number] [facility] 2023-12-24 00:00:00 2023-12-24 00:00:00 (TEL) [facility]C [facility] [id number] [facility] 2023-12-18 00:00:00 2023-12-18 00:00:00 OFFICE VISIT ESTAB PT LEVEL 4 [facility] [id number] [facility] 2023-11-26 00:00:00 2023-11-26 00:00:00 (TEL) STL[facility]C [facility]C [id number] [facility] 2023-10-18 00:00:00 2023-10-18 00:00:00 OFFICE VISIT ESTAB PT LEVEL 4 [facility]C ST[facility]C [id number] [facility] 2023-10-16 00:00:00 2023-10-16 00:00:00 (TEL) [facility]C [facility] [id number] [facility] 2023-09-17 00:00:00 2023-09-17 00:00:00 (TEL) [facility]C ST[facility]C [id number] [facility] 2023-08-13 00:00:2023-08-13 00:00:00 (TEL) [facility]C [facility] [id number] [facility] 2023-08-10 00:00:00 2023-08-10 00:00:00 OFFICE VISIT ESTAB PT LEVEL 4 [facility]C ST[facility]C [id number] [facility] 2023-07-17 00:00:00 2023-07-17 00:00:00 (TEL) STL[facility]C [facility] [id number] [facility] 2023-06-18 00:00:00 2023-06-18 00:00:00 (TEL) [facility]C [facility]C [id number] [facility] 2023-06-13 00:00:00 2023-06-13 00:00:00 (TEL) STL[facility]C ST[facility]C [id number] [facility] 2023-06-07 04:57:00 2023-06-07 07:01:00 Emergency X AMINATA TEMPLE [facility] ERT [id number] [facility] 2023-06-07 04:57:00 2023-06-07 07:01:00 Emergency Aminata Temple [facility] [id number] [id number] [facility] 2023-05-28 00:00:00 2023-05-28 00:00:00 OFFICE VISIT ESTAB PT LEVEL 3 [facility]C ST[facility]C [id number] [facility] 2023-05-17 00:00:00 2023-05-17 00:00:00 (WEB) STLMLC ST[facility]C [id number] [facility] 2023-05-09 00:00:00 2023-05-09 00:00:00 (TEL) STLMLC ST[facility]C [id number] [facility] 2023-05-07 00:00:00 2023-05-07 00:00:00 (TEL) STLMLC ST[facility]C [id number] [facility] 2023-04-02 00:00:00 2023-04-02 00:00:00 (TEL) [facility]C [facility] [id number] [facility] 2023-03-28 00:00:00 2023-03-28 00:00:00 PREV VISIT EST AGE 40-64 STLMLC STLMLC [id number] [facility] 2023-03-14 00:00:00 2023-03-14 00:00:00 (TEL) STLMLC ST[facility]C [id number] [facility] 2023-02-12 00:00:00 2023-02-12 00:00:00 OFFICE VISIT ESTAB PT LEVEL 3 [facility] ST[facility]C [id number] [facility] 2023-02-12 00:00:00 2023-02-12 00:00:00 (TEL) STLMLC ST[facility]C [id number] [facility] 2023-01-23 00:00:00 2023-01-23 00:00:00 OFFICE VISIT ESTAB PT LEVEL 3 [facility]C STL[facility]C [id number] [facility] 2022-12-25 00:00:00 2022-12-25 00:00:00 (TEL) STLMLC ST[facility]C [id number] [facility] 2022-11-21 00:00:00 2022-11-21 00:00:00 OFFICE VISIT ESTAB PT LEVEL 4 [facility]C ST[facility] [id number] [facility] 2022-09-19 00:00:00 2022-09-19 00:00:00 OFFICE VISIT ESTAB PT LEVEL 4 [facility]C [facility]C [id number] [facility] 2022-09-19 00:00:00 2022-09-19 00:00:00 (TEL) STLMLC STLMLC [id number] [facility] 2022-08-30 00:00:00 2022-08-30 00:00:00 OFFICE VISIT EST PT LEVEL 3 [facility]C ST[facility]C [id number] [facility] 2022-08-30 00:00:00 2022-08-30 00:00:00 (TEL) STLMLC STLMLC [id number] [facility] 2022-08-25 00:00:00 2022-08-25 00:00:00 (TEL) STLMLC STL[facility]C [id number] [facility] 2022-07-20 00:00:00 2022-07-20 00:00:00 OFFICE VISIT ESTAB PT LEVEL 4 [facility]LMLC STLMLC [id number] [facility] 2022-06-02 00:00:00 2022-06-02 00:00:00 OFFICE VISIT EST PT LEVEL 3 [facility]C STL[facility]C [id number] [facility] 2022-05-12 00:00:00 2022-05-12 00:00:00 OFFICE VISIT ESTAB PT LEVEL 4 [facility]C STL[facility]C [id number] [facility] 2022-05-03 00:00:00 2022-05-03 00:00:00 OFFICE VISIT ESTAB PT LEVEL 5 [facility]C STL[facility]C [id number] [facility] 2022-03-16 00:00:00 2022-03-16 00:00:00 OFFICE VISIT ESTAB PT LEVEL 4 [facility]C STL[facility]C [id number] [facility] 2022-01-11 00:00:00 2022-01-11 00:00:00 OFFICE VISIT ESTAB PT LEVEL 4 [facility]C ST[facility] [id number] [facility] 2021-11-16 00:00:00 2021-11-16 00:00:00 OFFICE VISIT ESTAB PT LEVEL 4 [facility]C [facility] [id number] [facility] 2021-10-11 00:00:00 2021-10-11 00:00:00 OFFICE VISIT NEW PT LEVEL 3 [facility]C ST[facility]C [id number] [facility] 2021-09-14 00:00:00 2021-09-14 00:00:00 OFFICE VISIT ESTAB PT LEVEL 4 [facility]C ST[facility] [id number] [facility] 2021-07-13 00:00:00 2021-07-13 00:00:00 Outpatient [facility] STL[facility] [id number] [facility] 2021-06-28 00:00:00 2021-06-28 00:00:00 Outpatient STL[facility]C ST[facility] [id number] [facility] 2021-06-04 10:54:07 2021-06-04 11:14:07 Urgent Care [facility] [id number] 350.1.13.10 4.2.7.2.686 [id number] [facility] 2021-06-04 11:00:00 2021-06-04 11:00:00 Outpatient R ELLEN TIDWELL [facility] [id number] [facility] 2021-06-04 00:00:00 2021-06-04 00:00:00 Letter (Out) Doctor Unassigned, [place] [id number] 350.1.13.10 4.2.7.2.686 [id number] [facility] 2021-06-04 00:00:00 2021-06-04 00:00:00 Letter (Out) Doctor Unassigned, [place] [id number] 350.1.13.10 4.2.7.2.686 [id number] [facility] 2021-05-31 00:00:00 2021-05-31 00:00:00 Outpatient [facility] ST[facility] [id number] [facility] 2021-05-04 00:00:00 2021-05-04 00:00:00 Outpatient [facility]C [facility] [id number] [facility] 2021-04-05 00:00:00 2021-04-05 00:00:00 Outpatient STL[facility]C [facility] [id number] [facility] 2021-03-07 00:00:00 2021-03-07 00:00:00 Outpatient STL[facility]C ST[facility] [id number] [facility] 2021-02-04 00:00:00 2021-02-04 00:00:00 Outpatient STL[facility]C STL[facility]C [id number] [facility] 2020-12-13 09:00:00 2020-12-13 09:40:00 Emergency [facility] [id number] 350.1.13.10 4.2.7.2.686 [id number] 2020-12-13 09:00:00 2020-12-13 09:40:00 Emergency [facility] [id number] 350.1.13.10 4.2.7.2.686 [id number] [facility] 2020-12-13 00:00:00 2020-12-13 00:00:00 Orders Only Doctor Unassigned, [place] [facility] [id number] 350.1.13.10 4.2.7.2.686 [id number] 2020-12-13 00:00:00 2020-12-13 00:00:00 Orders Only Doctor Unassigned, [place] [facility] [id number] 350.1.13.10 4.2.7.2.686 [id number] [facility] 2020-07-07 16:34:00 2020-07-07 16:34:00 Outpatient [facility] [id number] [facility] 2020-07-07 15:00:00 2020-07-07 15:00:00 Outpatient [facility] [id number] [facility] 2020-06-15 13:15:00 2020-06-15 13:15:00 Outpatient JOSE KUMAR [facility] [id number] [facility] 2020-05-31 13:12:00 2020-05-31 13:12:00 [facility] [id number] [facility] 2020-05-27 08:00:00 2020-05-27 08:00:00 [facility] [id number] [facility] 2020-05-24 09:47:00 2020-05-24 09:47:00 [facility] [id number] [facility] 2020-05-24 08:42:00 2020-05-24 08:42:00 Out[facility] [id number] [facility] 2020-05-04 09:18:00 2020-05-04 09:18:00 Outpatient [facility] [id number] [facility] 2020-05-04 08:20:00 2020-05-04 08:20:00 Outpatient [facility] [id number] [facility] 2020-05-03 16:03:00 2020-05-03 16:03:00 Out[facility] [id number] [facility] 2020-04-27 10:30:00 2020-04-27 10:30:00 Out[facility] [id number] [facility] 2020-04-12 11:00:00 2020-04-12 11:00:00 Outpatient [facility] [id number] [facility] 2020-04-08 08:00:00 2020-04-08 08:00:00 Out[facility] [id number] [facility] 2020-04-01 16:18:00 2020-04-01 16:18:00 Outpatient [facility] [id number] [facility] 2020-03-30 09:05:00 2020-03-30 09:05:00 [facility] [id number] [facility] 2020-03-15 10:30:00 2020-03-15 10:30:00 Outpatient [facility] [id number] [facility] 2020-02-26 09:42:00 2020-02-26 09:42:00 Outpatient [facility] [id number] [facility] 2020-02-24 11:54:00 2020-02-24 11:54:00 Outpatient [facility] [id number] [facility] 2020-02-02 08:00:00 2020-02-02 08:00:00 Outpatient [facility] [id number] [facility] Results Test Description Test Time Test Comments Results Result Co mments Source CBC W/AUTO [id number] 00:00:00* Test Item Value Reference Range Interpretation Comme nts NUCLEATED RBCS (test code = 25613-7) 0.0 /100 WBC'S See_Comment [Automated [employer]] The system which generated this result transmitted reference range: 0.0 /100 WBC'S. The reference range was not used to interpret this result as normal/abnormal. ABSOLUTE EOSINOPHILS (test code = 97529-9) 0.16 K/UL See_Comment [Automated [employer]] The system which generated this result transmitted reference range: 0.00-0.50 K/UL. The reference range was not used to interpret this result as normal/abnormal. ABSOLUTE LYMPHOCYTES (test code = 19175-9) 1.46 K/UL See_Comment [Automated messa ge] The system which generated this result transmitted reference range: 1.00-4.00 K/UL. The reference range was not used to interpret this result as normal/abnormal. ABSOLUTE MONOCYTES (test code = 99559-8) 0.29 K/UL See_Comment [Automated messa ge] The system which generated this result transmitted reference range: 0.20-1.00 K/UL. The reference range was not used to interpret this result as normal/abnormal. ABSOLUTE NEUTROPHILS (test code = 82132-6) 4.25 K/UL See_Comment [Automated messa ge] The system which generated this result transmitted reference range: 1.50-7.50 K/UL. The reference range was not used to interpret this result as normal/abnormal. BASOPHILS (test code = 31010-5) 1.0 % EOSINOPHILS (test code = 08491-8) 2.6 % HEMATOCRIT (test code = 29389-4) 38.4 % See_Comment L [Automated messa ge] The system which generated this result transmitted reference range: 40.0-51.0 %. The reference range was not used to interpret this result as normal/abnormal. HEMOGLOBIN (test code = 718-7) 13.7 G/DL See_Comment [Automated messa ge] The system which generated this result transmitted reference range: 13.5-17.0 G/DL. The reference range was not used to interpret this result as normal/abnormal. LYMPHOCYTES (test code = 95414-7) 23.4 % MCH (test code = 28637-9) 30.4 PG See_Comment [Automated messa ge] The system which generated this result transmitted reference range: 25.0-33.0 PG. The reference range was not used to interpret this result as normal/abnormal. MCHC (test code = 41223-1) 35.7 G/DL See_Comment [Automated messa ge] The system which generated this result transmitted reference range: 31.0-36.0 G/DL. The reference range was not used to interpret this result as normal/abnormal. MCV (test code = 00319-5) 85.1 fL See_Comment [Automated messa ge] The system which generated this result transmitted reference range: 80.0-99.0 fL. The reference range was not used to interpret this result as normal/abnormal. MONOCYTES (test code = 27930-7) 4.6 % NEUTROPHILS (test code = 59063-4) 67.9 % PLATELET COUNT (test code = 62125-0) 134 K/UL See_Comment [Automated messa ge] The system which generated this result transmitted reference range: 130-400 K/UL. The reference range was not used to interpret this result as normal/abnormal. RBC (test code = 66716-2) 4.51 M/UL See_Comment [Automated messa ge] The system which generated this result transmitted reference range: 4.50-6.10 M/UL. The reference range was not used to interpret this result as normal/abnormal. RDW (test code = 68253-6) 14.2 % See_Comment [Automated messa ge] The system which generated this result transmitted reference range: 11.5-15.0 %. The reference range was not used to interpret this result as normal/abnormal. WBC (test code = 32385-0) 6.3 K/UL See_Comment [Automated messa ge] The system which generated this result transmitted reference range: 3.5-11.0 K/UL. The reference range was not used to interpret this result as normal/abnormal. Notes Date/Time Note Provider Source 2024-01-01 14:51:04 Copied from [facility] #[id number]. Topic: Appointment - Appointment Request >> Jan 01, 2024 2:49 PM Patient Web Design Instructor wrote: Olamide Guerrero is a 48 year old male Patient calling back to schedule appointment with Dr. Cope. [facility]endez [facility] 2024-01-01 14:32:01 I called patient and he hung up on me and I called back to schedule appointment and went to voice box that is not set up. Angulo [facility] 2024-01-01 10:31:17 Copied from [facility] #[id number]. Topic: Appointment - Schedule Appointment >> Jan 01, 2024 10:28 AM Patient Web Design Instructor wrote: Patient called stating that he has previously seen donovan and wants to set an appt I told patient that he has to pre visit with Dr. cope and would need verification if will accept him as a new patient since he is not established patient wants appt for shots in his knee medicine shot and Cortizone shot Please advise Appointment SNIPPER Eric Chambers [facility] 2023-06-07 06:59:30 Formatting of this n ote might be different from the original. Pt given printed and verbal discharge instructions regarding abrasion of the right cornea, Prescriptions provided Discussed ibuprofen and to take with food to avoid GI distress, alternate with Tylenol to help with pain and/or fever Pt verbalized understanding of instructions,pt encouraged to follow up with pcp and or opthamologist Advised to seek medical attention for new/prolonged/worsening of symptoms, Awake, alert oriented, resp reg unlabored, skin w/d, pt leaving in no apparent distress, Ellen Vinson RN [facility] 2023-06-07 04:50:05 Formatting of this n ote might be different from the original. Pt arrives ambulatory to ED reporting that around 7pm last evening he felt as if something was in his eye, he flushed it for awhile and went to bed thinking it would clear up by morning, however, when he woke up he says it is still there. He reports that it feels like something in his eye lid scraping his eye. He was grinding metal yesterday per his s they believe it could be that so he came in to be seen. [facility] 2023-06-07 04:42:00 Formatting of this n ote is different from the original. 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 He reports that it feels like something in his eye lid scraping his eye. He was grinding metal yesterday per his s they believe it could be that so he came in to be seen. HPI The patient is a 47-year-old male who presents for right eye irritation. 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 He did admits that he has blurry vision because his eyes irritated. However, his vision is otherwise at his baseline. History provided by: Patient Eye Problem Location: Right eye Quality: Foreign body sensation Severity: Moderate Onset quality: Gradual Duration: 1 day Timing: Constant Chronicity: New Context: foreign body Foreign body: Metal Relieved by: Nothing Worsened by: Nothing Associated symptoms: redness Associated symptoms: no discharge, no headaches, no itching, no nausea and no vomiting Past Medical History / Immunizations No past medical history on file. Tetanus received in last 5 years: Yes Past Surgical History No past surgical history on file. Allergies Allergies Allergen Reactions Codeine Unknown - See comments Darvocet A500 [Propoxyphene N-Acetaminophen] Unknown - See comments Xanax [Alprazolam] Other - See comments Extreme aggitation Social History Tobacco Use Never smoked or used smokeless tobacco. Review of Systems Review of Systems Constitutional: Negative. Negative for chills, fatigue, fever and unexpected weight change. HENT: Negative. Eyes: Positive for pain and redness. Negative for discharge and itching. Respiratory: Negative. Negative for cough, chest tightness, shortness of breath and wheezing. Cardiovascular: Negative. Negative for chest pain and palpitations. Gastrointestinal: Negative. Negative for abdominal distention, abdominal pain, nausea and vomiting. Genitourinary: Negative. Negative for dysuria, urgency, frequency and flank pain. Musculoskeletal: Negative. Skin: Negative. Negative for color change, pallor and wound. Neurological: Negative. Negative for dizziness, syncope, light-headedness and headaches. Psychiatric/Behavioral: Negative. Negative for agitation and behavioral problems. All other systems reviewed and are negative. Endocrine: Endocrine negative Physical Exam ED Triage Vitals [06/07/23 0448] Weight 113.4 kg (250 lb) Actual or estimated Estimated by patient/family report Height 1.753 m (5' 9") BP (!) 144/82 Pulse 69 Resp 18 Temp 36.6 ?C (97.9 ?F) Temp source Oral SpO2 99 % Measured on Room air Physical Exam Vitals reviewed. Constitutional: Appearance: He is well-developed. HENT: Head: Normocephalic and atraumatic. Eyes: Conjunctiva/sclera: Right eye: Right conjunctiva is injected. Pupils: Right eye: Fluorescein uptake present. Musculoskeletal: General: Normal range of motion. Skin: General: Skin is warm and dry. Neurological: Mental Status: He is alert and oriented to person, place, and time. Psychiatric: Behavior: Behavior normal. Labs Lab Results - No data to display Imaging No orders to display Orders and Treatments No orders of the defined types were placed in this encounter. No orders of the defined types were placed in this encounter. Procedures Procedures Notes & MDM Patient was evaluated for an emergency medical condition related to Foreign Body In Eye . History and/or review of systems is limited by:History limited: None. Diagnosis/Impression as of 06/07/23 0521 Abrasion of right cornea, initial encounter Medical Decision Making Problems Addressed: Abrasion of right cornea, initial encounter: acute illness or injury Risk Prescription drug management. Limitations to patient care and compliance: none. Assessment/Summary: The patient is a 47-year-old gentleman who has a right sided corneal abrasion. It is a large current abrasion and is visual field. His eye was flushed with a Kalia lens. He will be sent home with erythromycin ointment and pain meds. He will be discharged to follow-up to ophthalmology. He can return for any questions or concerns. History, physical exam findings, results of visit, differential diagnosis, medication regimens and plan of future care have been considered. Additional MDM may be found in the ED course. Differential diagnosis considered and final disposition made based on information gathered during evaluation and may not be completely ruled out or specifically listed. Vital signs were rechecked before final disposition. Diagnosis Final diagnoses: None Disposition & Follow Up ED Disposition None Patient's Medications START taking these medications No medications on file CONTINUE taking these medications which have NOT CHANGED CLONAZEPAM (KLONOPIN) 1 MG TABLET Take 1 Tab by mouth 2 (two) times daily. CYCLOBENZAPRINE (AMRIX) 15 MG 24 HR CAPSULE Take 15 mg by mouth once daily as needed for Muscle Spasms. CYCLOBENZAPRINE (FLEXERIL) 10 MG TABLET Take 1 Tab by mouth at bedtime. DEXTROAMPHETAMINE-AMPHETAMINE 30 MG TABLET Take 30 mg by mouth 2 (two) times daily. LEVOTHYROXINE (SYNTHROID) 75 MCG TABLET Take 75 mcg by mouth every morning. SERTRALINE (ZOLOFT) 100 MG TABLET Take 1 Tab by mouth daily. Take 1 1/2 Tab daily TESTOSTERONE CYPIONATE (DEPO-TESTOSTERONE) 200 MG/ML INJECTION 200 mg by Intramuscular route once every month. ZOLPIDEM (AMBIEN CR) 12.5 MG CR TABLET Take 1 Tab by mouth at bedtime. START taking Modified Medications as Prescribed No medications on file STOP taking these medications No medications on file Aminaat Temple Jr., MD Clinical Co Supervisor [employer] [facility] Emergency Department [employer] is used frequently and may produce errors. Promptly contact for obvious discrepancies. Aminata Temple MD 06/07/23 0556 [facility] [employer] [facility]
[2024-08-13] MEDS ORDERED: LIDOCAINE 1% 20 ML MDV ONE (23:41)
[2024-08-13] MEDS ORDERED: IBUPROFEN 400 MG TAB ONE (23:42)
[2024-08-13] MEDS ORDERED: TDAP (DIPHTH,PERTUSS(ACELL),TET VAC) 0.5 ML VIAL IMVAC ONE (23:42)
[2024-08-13] MEDS ORDERED: HYDROCODONE/APAP 10/325 TAB ONE (23:42)
--- NOTE | 2024-08-14 00:13 | ER ---
Nurse's Notes [facility] Name: Catracho Motta Age: 48 yrs Sex: Male : 1975 Arrival Date: 08/13/2024 Time: 22:13 Bed 5 Private MD: Alberto Ba Diagnosis: Crush injury left ring distal phalanx of finger, acute laceration left ring finger distal phalanx Presentation: 08/13 22:51 Chief complaint: Patient states: laceration to left ring finger. Coronavirus screen: lg3 Client denies travel out of the [place] in the last 14 days. At this time, the client does not indicate any symptoms associated with coronavirus-19. Ebola Screen: No symptoms or risks identified at this time. Initial Sepsis Screen: Does the patient meet any 2 criteria? No. Patient's initial sepsis screen is negative. Does the patient have a suspected source of infection? No. Patient's initial sepsis screen is negative. Risk Assessment: Do you want to hurt yourself or someone else? Patient reports no desire to harm self or others. Onset of symptoms was August 13, 2024. 22:51 Method Of Arrival: Ambulatory lg3 22:51 Acuity: JUANA 4 lg3 Triage Assessment: 22:53 General: Appears in no apparent distress. comfortable, Behavior is calm, cooperative. lg3 Pain: Complains of pain in left ring finger. EENT: No deficits noted. No signs and/or symptoms were reported regarding the EENT system. Neuro: No deficits noted. Whipple Agitation-Sedation Scale (RASS): 0 - Alert and Calm Level of Consciousness is awake, alert, obeys commands, Oriented to person, place, time, situation. Cardiovascular: No deficits noted. Denies chest pain, shortness of breath, Capillary refill < 3 seconds Clubbing of nail beds is absent JVD is absent Patient's skin is warm and dry. Respiratory: No deficits noted. Airway is patent Respiratory effort is even, unlabored, Respiratory pattern is regular, symmetrical. GI: No deficits noted. No signs and/or symptoms were reported involving the gastrointestinal system. Abdomen is round distended. : No deficits noted. No signs and/or symptoms were reported regarding the genitourinary system. Derm: Skin is intact, is healthy with good turgor, Skin is dry, Skin is normal, Skin temperature is warm Wound noted left ring finger. Musculoskeletal: No deficits noted. No signs and/or symptoms reported regarding the musculoskeletal system. Circulation, motion, and sensation intact. Range of motion: intact in all extremities. Injury Description: Laceration sustained to left ring finger. Historical: - Allergies: 22:53 Codeine; lg3 - Home Meds: 22:53 Klonopin Oral [Active]; Clonazepam Oral [Active]; sertraline Oral [Active]; Adderall XR lg3 Oral [Active]; - PMHx: 22:53 Anxiety; Arthritis; ADHD; lg3 - PSHx: 22:53 carpal tunnel (Arthritis); knee (Arthritis); back (Arthritis); thumb (Arthritis); lg3 - Immunization history:: Adult Immunizations up to date, Last tetanus immunization: < 10 years ago. - Infectious Disease History:: Denies. - Social history:: Smoking status: Patient denies any tobacco usage or history of. Patient/guardian denies using alcohol, street drugs. - Family history:: not pertinent. Screenin/17 00:06 [facility] ED Fall Risk Assessment (Adult) History of falling in the last 3 months, kd3 including since admission No falls in past 3 months (0 pts) Confusion or Disorientation No (0 pts) Intoxicated or Sedated No (0 pts) Impaired Gait No (0 pts) Mobility Assist Device Used No (0 pt) Altered Elimination No (0 pt) Score/Fall Risk Level 0 - 2 = Low Risk Oriented to surroundings. Abuse screen: Denies threats or abuse. Denies injuries from another. Nutritional screening: No deficits noted. Tuberculosis screening: No symptoms or risk factors identified. Assessment: 00:04 General: Provider at bedside to clean wound of the right hand. Patient is alert and kd3 oriented, respirations are even and unlabored, skin is warm and dry. Patient is calm and cooperative. VSS. Patient has been medicated for pain, bosstrix administered in the right deltoid. No further requests. . Vital Signs: 08/13 22:51 BP 145 / 101; Pulse 94; Resp 17 S; Temp 97.7(O); Pulse Ox 99% ; Weight 108.86 kg (R); lg3 Height 5 ft. 10 in. (R); Pain 7/10; 08/14 00:04 BP 149 / 98; Pulse 87; Resp 17; Pulse Ox 96% on R/A; kd3 08/13 22:51 Body Mass Index 34.44 (108.86 kg, 177.8 cm) lg3 08/13 22:51 Pain Scale: Adult lg3 Agency Coma Score: 06:02 Eye Response: spontaneous(4). Motor Response: obeys commands(6). Verbal Response: sp4 oriented(5). Total: 15. ED Course: 08/13 22:16 Patient arrived in ED. gm2 22:16 Alberto Ba DO is Private Physician. gm2 22:28 Anjum Malloy MD is Attending Physician. sp4 22:53 Triage completed. lg3 22:53 Arm band placed on right wrist. lg3 23:32 Matilde Teran, RN is Primary Nurse. kd3 08/14 00:06 No provider procedures requiring assistance completed. Patient did not have IV access kd3 during this emergency room visit. 00:30 Provided Education on: medication . kd3 00:31 Patient has correct armband on for positive identification. kd3 00:52 Hand Left 3 View XRAY In Process Unspecified. EDMS Administered Medications: 08/13 23:52 Drug: Divernon PO 10 mg-325 mg 1 tabs PO once Route: PO; kd3 08/14 00:30 Follow up: Response: No adverse reaction; Pain is decreased kd3 08/13 23:52 Drug: Ibuprofen PO 800 mg PO once Route: PO; kd3 08/14 00:30 Follow up: Response: No adverse reaction; Pain is decreased kd3 08/13 23:52 Drug: Boostrix Tdap IM 0.5 ml IM once; as a single dose Route: IM; Site: right deltoid; kd3 08/14 00:30 Follow up: Response: No adverse reaction kd3 00:29 Drug: Lidocaine Infiltration (1 %) 20 ml 20 ml Infiltration once; to bedside Volume: 20 kd3 ml; Route: Infiltration; Medication: 00:06 VIS not applicable for this client. kd3 Outcome: 00:12 Discharge ordered by . sp4 00:30 Discharged to home ambulatory, kd3 00:30 Condition: stable 00:30 Discharge instructions given to patient, Instructed on discharge instructions, follow up and referral plans. medication usage, Demonstrated understanding of instructions, follow-up care, medications, Prescriptions given X 1, 00:31 Patient left the ED. kd3 Signatures: Dispatcher [employer] EDMS Marline Ramos RN RN lg3 Matilde Teran RN RN kd3 Anjum Malloy MD MD sp4 Afshan Paris 2
--- NOTE | 2024-08-14 00:13 | EDPHYS ---
Physician Documentation [facility] [place] Name: Catracho Motta Age: 48 yrs Sex: Male : 1975 Arrival Date: 08/13/2024 Time: 22:13 Bed 5 Private MD: Alberto Ba ED Physician Anjum Malloy HPI: 08/13 22:28 This 48 yrs old Male presents to ER via Unassigned with complaints of Finger sp4 Injury, Pain. 08/14 06:02 48-year-old male presents with complaint of crush injury to the left ring finger. sp4 Historical: - Allergies: 08/13 22:53 Codeine; lg3 - Home Meds: 22:53 Klonopin Oral [Active]; Clonazepam Oral [Active]; sertraline Oral [Active]; Adderall XR lg3 Oral [Active]; - PMHx: 22:53 Anxiety; Arthritis; ADHD; lg3 - PSHx: 22:53 carpal tunnel (Arthritis); knee (Arthritis); back (Arthritis); thumb (Arthritis); lg3 - Immunization history:: Adult Immunizations up to date, Last tetanus immunization: < 10 years ago. - Infectious Disease History:: Denies. - Social history:: Smoking status: Patient denies any tobacco usage or history of. Patient/guardian denies using alcohol, street drugs. - Family history:: not pertinent. ROS: 08/14 06:02 Constitutional: Negative for fever, chills, and weight loss, positive crush injury to sp4 left ring finger , positive for laceration left ring finger 06:02 All other systems are negative, sp4 Exam: 06:02 Constitutional: This is a well developed, well nourished patient who is awake, alert, sp4 and in no acute distress. Head/Face: Normocephalic, atraumatic. Eyes: Pupils equal round and reactive to light, extra-ocular motions intact. Lids and lashes normal. Conjunctiva and sclera are not injected. Cornea within normal limits. Periorbital areas with no swelling, redness, or edema. ENT: Nares patent. No nasal discharge, no septal abnormalities noted. Tympanic membranes are normal and external auditory canals are clear. Oropharynx with no redness, swelling, or masses, exudates, or evidence of obstruction, uvula midline. Mucous membranes moist. Neck: Trachea midline, no thyromegaly or masses palpated, and no cervical lymphadenopathy. Supple, full range of motion without nuchal rigidity, or vertebral point tenderness. Chest/axilla: Normal chest wall appearance and motion. Nontender with no deformity. No lesions are appreciated. Cardiovascular: Regular rate and rhythm with a normal S1 and S2. No gallops, murmurs, or rubs. Normal PMI, no JVD. No pulse deficits. Respiratory: Lungs have equal breath sounds bilaterally, clear to auscultation and percussion. No rales, rhonchi or wheezes noted. No increased work of breathing, no retractions or nasal flaring. Abdomen/GI: Soft, with normal bowel sounds. No distension or tympany. No guarding or rebound. No evidence of tenderness throughout. Back: No spinal tenderness. No costovertebral tenderness. Skin: Warm, dry with normal turgor. Normal color with no rashes, no lesions, and no evidence of cellulitis. MS/ Extremity: Pulses equal, no cyanosis. Neurovascular intact. Full, normal range of motion. Positive pain tenderness swelling distal phalanx left ring finger small laceration distal phalanx left ring finger Neuro: Awake and alert, GCS 15, oriented to person, place, time, and situation. Cranial nerves II-XII grossly intact. Motor strength 5/5 in all extremities. Sensory grossly intact. Psych: Awake, alert, with orientation to person, place and time. Behavior, mood, and affect are within normal limits Vital Signs: 08/13 22:51 BP 145 / 101; Pulse 94; Resp 17 S; Temp 97.7(O); Pulse Ox 99% ; Weight 108.86 kg (R); lg3 Height 5 ft. 10 in. (R); Pain 05/07; 08/14 00:04 BP 149 / 98; Pulse 87; Resp 17; Pulse Ox 96% on R/A; kd3 08/13 22:51 Body Mass Index 34.44 (108.86 kg, 177.8 cm) lg3 08/13 22:51 Pain Scale: Adult lg3 [place] Coma Score: 06:02 Eye Response: spontaneous(4). Motor Response: obeys commands(6). Verbal Response: sp4 oriented(5). Total: 15. Laceration: 00:10 Wound Repair of 1cm ( 0.4in ) subcutaneous laceration to dorsal aspect of distal sp4 phalanx of left ring finger. Irregularly shaped.. Hemostasis noted.. Moderate contamination.. Distal neuro/vascular/tendon intact. Anesthesia: Digital block administered with 5 mls of 1% lidocaine. Wound prep: Moderate cleansing by me, Copious irrigation. Skin closed with 3 4-0 Prolene using interrupted sutures and sterile technique. Dressed with 4x4's, Kerlix, non-adherent dressing. Patient tolerated well. MDM: 08/13 22:29 Medical Screening Exam initiated sp4 08/14 06:02 Differential diagnosis: extremity fracture, crush injury , laceration left ring finger. sp4 Data reviewed: vital signs, nurses notes, radiologic studies, plain films. Consideration of Admission/Observation Escalation of care including admission/observation considered. ED course: EXAM: XR Left Hand Complete, 3 or More Views CLINICAL HISTORY: The patient is 48 years old and is Male; left ring finger injury TECHNIQUE: Three views of the left hand. COMPARISON: No relevant prior studies available. FINDINGS: Artifacts: External artifact from bandaging, fourth digit. Bones/joints: Unremarkable. No acute fracture. No dislocation. Soft tissues: Soft tissue swelling fourth digit. No radiopaque foreign body. IMPRESSION: No acute findings in the left hand.. 08/13 22:47 Order name: Hand Left 3 View XRAY 4 08/13 22:48 Order name: Dressing - Wound; Complete Time: 23:52 sp4 08/13 22:48 Order name: Gloves, Sterile; Complete Time: 23:52 sp4 08/13 22:48 Order name: Setup Suture Tray; Complete Time: 23:52 sp4 Administered Medications: 08/13 23:52 Drug: Filion PO 10 mg-325 mg 1 tabs PO once Route: PO; kd3 08/14 00:30 Follow up: Response: No adverse reaction; Pain is decreased kd3 08/13 23:52 Drug: Ibuprofen PO 800 mg PO once Route: PO; kd3 08/14 00:30 Follow up: Response: No adverse reaction; Pain is decreased kd3 08/13 23:52 Drug: Boostrix Tdap IM 0.5 ml IM once; as a single dose Route: IM; Site: right deltoid; kd3 08/14 00:30 Follow up: Response: No adverse reaction kd3 00:29 Drug: Lidocaine Infiltration (1 %) 20 ml 20 ml Infiltration once; to bedside Volume: 20 kd3 ml; Route: Infiltration; Disposition Summary: 08/14/24 00:12 Discharge Ordered Notes: No fracture visualized in the injured finger

Location: Home sp4 Problem: new sp4 Symptoms: have improved sp4 Condition: Stable sp4 Diagnosis - Crush injury left ring distal phalanx of finger, acute laceration left ring sp4 finger distal phalanx Followup: sp4 - With: Private Physician - When: As needed - Reason: Recheck today's complaints Discharge Instructions: - Discharge Summary Sheet sp4 - Laceration Care, Adult, [id number] sp4 Forms: - Patient Portal Instructions sp4 Prescriptions: - Ibuprofen 800 mg Oral Tablet - take 1 tablet ORAL route every 8 hours As needed take with food; 30 tablet; sp4 Refills: 0, Product Selection Permitted Signatures: Dispatcher [employer] Marline Schulz RN RN lg3 Matilde Teran RN RN kd3 Anjum Malloy MD MD sp4
[2024-08-14 04:19] VITALS: TEMP 97.7
[2024-08-14 04:21] VITALS: BP 149/98; O2SAT 96
--- NOTE | 2024-08-14 06:11 | RAD REPORT ---
EXAM: XR Left Hand Complete, 3 or More Views CLINICAL HISTORY: The patient is 48 years old and is Male; left ring finger injury TECHNIQUE: Three views of the left hand. COMPARISON: No relevant prior studies available. FINDINGS: Artifacts: External artifact from bandaging, fourth digit. Bones/joints: Unremarkable. No acute fracture. No dislocation. Soft tissues: Soft tissue swelling fourth digit. No radiopaque foreign body. IMPRESSION: No acute findings in the left hand. Electronically signed by: Shruti Reagan MD 08/14/2024 04:05 AM CDT RP ND Due to temporary technical issues with the PACS/[place] reporting system, reports are being pancho d by the in-house radiologist without review as a courtesy to ensure prompt reporting the interpreting radiologist is fully responsible for the content of the report. Transcribed Date/Time: 08/14/2024 6:10 AM
== END 2024-08-14 00:31 | disposition home or self-care (01) ==
LOC: ER 22:13
DX: S61.215A Laceration without foreign body of left ring finger without damage to nail, initial encounter (principal)
CPT/HCPCS: 12041; 96372; 99284; J2001

== ENCOUNTER 2024-08-20 10:03 | Emergency (ER) | payer BC, SELFPAY ==
--- OUTSIDE RECORDS SUMMARY | 2024-08-20 10:06 | XMS REPORT | Continuity of Care Document ---
Author Name Unknown Address [address] [facility] [address] [place] [address] [facility] Address [address] [facility] [address] [place] [address] Care Team Providers Care Housekeeper Cleaning Cooking Name Role Phone Jose Mar MD Primary Care Physician Alberto Ba Attending Clinician Unavailable Yemi Chow Attending Clinician Unavailable Mumtaz Cope MD Attending Clinician [phone] AMINATA TEMPLE Attending Clinician Unavailable Aminata Temple MD Attending Clinician [phone] Ellen Tidwell MD Attending Clinician [phone] ELLEN TIDWELL Attending Clinician Unavailable Doctor Unassigned, [place] Attending Clinician U Mere Coyle DO Attending Clinician [phone] JOSE MAR Attending Clinician Unaaishwarya wilson Payers Payer Name Policy Type Policy Number Effective Date Expirati on Date Source [facility] 6 [id number] 2023 00:00:00 [facility] 6 [id number] [facility] AETNA 53 [id number] 2021 00:00:00 [facility] Problems Condition Name Condition Details Condition Category Status Onset Date Resolution Date Last Treatment Date Treating Clinician Comments Source Anxiety Anxiety Disease Active 2014-10 00:00: 00 [facility] Headache Headache Disease Active 2014-10 00:00: 00 [facility] Insomnia Insomnia Disease Active 2014-10 00:00: 00 [facility] Muscle spasm Muscle spasm Disease Active 2014-10 00:00: 00 [facility] Low back ache Low back ache Disease Active 2014-10 00:00: 00 [facility] [id number] Pain in joint of right elbow Problem [facility] [id number] Medial epicondyli tis of right elbow Problem [facility] [id number] 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 Problem [facility] [id number] Prostate nodule Problem [facility] [id number] Hypogonado tropic hypogonadi sm Problem [facility] [id number] Hypothyroi dism, unspecifie d type Problem [facility] [id number] Hyperestro genism in male Problem [facility] [id number] Mixed hyperlipid emia Problem [facility] Carpal tunnel syndrome Carpal tunnel syndrome, left Problem [facility] [id number] Current moderate episode of major depressive disorder without prior episode Problem [facility] [id number] Benzodiaze pine dependence , continuous Problem [facility] [id number] Attention deficit hyperactiv ity disorder (ADHD), predominan tly inattentiv e type Problem [facility] [id number] Hypothyroi dism (acquired) Problem [facility] [id number] Body mass index [BMI] 35.0-35.9, adult Problem [facility] [id number] 9104 Morbid (severe) obesity due to excess calories Problem [facility] 76428059 Generalize d anxiety disorder Problem [facility] [id number] Panic disorder [episodic paroxysmal anxiety] Problem [facility] [id number] Repetitive intrusions of sleep Problem [facility] [id number] 00 Daytime somnolence Problem [facility] 90210923 Chronic fatigue Problem [facility] 25636897 Type 2 diabetes mellitus with hyperglyce ana, without long-term current use of insulin Problem [facility] Allergies, Adverse Reactions, Alerts Allergy Name Allergy Type Status Severity Reaction(s) Onset Date Inactive Date Treating Clinician Comments Source ALPRAZOL AM DRUG INGREDI Active Other-Cmnt 06-07 00:00: 00 [facility] Alprazol am Propensi ty to adverse reaction s Active Other - See comments 06-07 00:00: 00 Extreme aggitatio n [facility] CODEINE DRUG INGREDI Active Unknown-Cmnt 2014-10 00:00: 00 [facility] PROPOXYP HENE N-ACETAM INOPHEN DRUG Active Unknown-Cmnt 2014-10 00:00: 00 [facility] Codeine Propensi ty to adverse reaction s Active Unknown - See comments 2014-10 00:00: 00 [facility] Propoxyp hene N-Acetam inophen Propensi ty to adverse reaction s Active Unknown - See comments 2014-10 00:00: 00 [facility] codeine codeine Active Unknown [facility] Social History Social Habit Start Date Stop Date Quantity Comments Source Gender identity [facility] Exposure to SARS-CoV-2 (event) Not sure [facility] History of Tobacco Use [facility] Sex Assigned At [facility] History of Social function 2021-06-04 00:00:00 2021-06-04 00:00:00 [facility] Tobacco use and exposure 2021-06-04 00:00:00 2021-06-04 00:00:00 Smokeless tobacco non-user [facility] Smoking Status Start Date Stop Date Source Unknown if ever smoked [facility] Never Smoker [facility] Medications Ordered Medication Name Filled Medication Name [...] Lidocaine Lidocaine 07-07 00:00: 00 No 1mL [facility] Kenalog (Triamcinol one) Kenalog (Triamcinol one) 07-07 00:00: 00 No 1mL [facility] clonazePAM 2 MG clonazePAM 2 MG 06-23 00:00: 00 No 1{table t_at_be dtime} QD clonazePAM 2 MG ibuprofen 800 mg tablet 06-07 00:00: 00 Yes [id number] 800mg Take 1 tablet by mouth every 8 (eight) hours. [facility] erythromyci n 5 mg/gram (0.5 %) ophthalmic ointment 06-07 00:00: 00 Yes [id number] .5[in_u s] Place 0.5 Inches in both eyes 4 (four) times daily. [facility] testosteron e cypionate (DEPO-TESTO STERONE) 200 mg/mL injection 06-04 16:01: 17 Yes 200mg 200 mg by Intramuscu lar route once every month. [facility] cyclobenzap rine (AMRIX) 15 mg 24 hr capsule 06-04 16:01: 17 Yes 15mg Take 15 mg by mouth once daily as needed for Muscle Spasms. [facility] levothyroxi ne (SYNTHROID) 75 mcg tablet 06-04 16:00: 50 Yes 75ug Take 75 mcg by mouth every morning. [facility] testosteron e cypionate (DEPO-TESTO STERONE) 200 mg/mL injection 06-04 11:01: 17 Yes 200mg 200 mg by Intramuscu lar route once every month. [facility] cyclobenzap rine (AMRIX) 15 mg 24 hr capsule 06-04 11:01: 17 Yes 15mg Take 15 mg by mouth once daily as needed for Muscle Spasms. [facility] levothyroxi ne (SYNTHROID) 75 mcg tablet 06-04 11:00: 50 Yes 75ug Take 75 mcg by mouth every morning. [facility] cephALEXin (KEFLEX) 500 mg capsule 06-04 00:00: 00 06-10 04:59 :00 No [id number] 500mg Take 1 capsule by mouth 4 (four) times daily for 5 days. [facility] dextroamphe tamine-amph etamine 30 mg tablet 05-20 00:00: 00 Yes 30mg Take 30 mg by mouth 2 (two) times daily. [facility] ondansetron (ZOFRAN-ODT ) disintegrat ing tablet 4 mg 12-13 16:15: 00 12-13 15:05 :00 No 4mg 4 mg, Oral, ONCE, 1 dose, 12/13/20 at 1015, Routine [facility] testosteron e cypionate (DEPO-TESTO STERONE) 200 mg/mL injection 12-13 15:04: 06 Yes 200mg 200 mg by Intramuscu lar route once every month. [facility] levothyroxi ne (SYNTHROID) 75 mcg tablet 12-13 15:04: 06 Yes 75ug Take 75 mcg by mouth every morning. [facility] cyclobenzap rine (AMRIX) 15 mg 24 hr capsule 12-13 15:04: 06 Yes 15mg Take 15 mg by mouth once daily as needed for Muscle Spasms. [facility] Depo-Medrol (Methylpred nisolone) 40mg Depo-Medrol (Methylpred nisolone) 40mg 03-15 00:00: 00 No 40mg [facility] Bupivicaine [place] Bupivicaine [place] 03-15 00:00: 00 No 1mL [facility] testosteron e cypionate (DEPO-TESTO STERONE) 200 mg/mL injection 2014-10 19:32: 19 Yes 200mg 200 mg by Intramuscu lar route once every month. [facility] levothyroxi ne (SYNTHROID) 75 mcg tablet 2014-10 19:32: 19 Yes 75ug Take 75 mcg by mouth every morning. [facility] cyclobenzap rine (AMRIX) 15 mg 24 hr capsule 2014-10 19:32: 19 Yes 15mg Take 15 mg by mouth once daily as needed for Muscle Spasms. [facility] clonazePAM (KLONOPIN) 1 mg tablet 2014-10 00:00: 00 Yes 1mg Take 1 Tab by mouth 2 (two) times daily. [facility] cyclobenzap rine (FLEXERIL) 10 mg tablet 2014-10 00:00: 00 Yes 10mg Take 1 Tab by mouth at bedtime. [facility] SERTraline (ZOLOFT) 100 mg tablet 2014-10 00:00: 00 Yes 100mg Take 1 Tab by mouth daily. Take 1 1/2 Tab daily [facility] zolpidem (AMBIEN CR) 12.5 mg CR tablet 2014-10 00:00: 00 Yes 12.5mg Take 1 Tab by mouth at bedtime. [facility] Testosteron e Cypionate 200 MG/ML Testosteron e Cypionate 200 MG/ML No Testostero ne Cypionate 200 MG/ML Sertraline HCl 100 MG Sertraline HCl 100 MG No 2{table t} QD Sertraline HCl 100 MG Levothyroxi ne Sodium 112 MCG Levothyroxi ne Sodium 112 MCG No QD Levothyrox ine Sodium 112 MCG Ibuprofen Ibuprofen No Ibuprofen Vital Signs Vital Name Observation Time Observation Value Comments S floyd height 2024-07-07 15:00:00 70 [in_i] Commo n [facility] weight 2024-07-07 15:00:00 234.5 [lb_av] Co mmon [facility] temperature 2024-07-07 15:00:00 97.8 [degF] Com mon [facility] bmi 2024-07-07 15:00:00 33.64 kg/m2 Comm on [facility] blood pressure systolic 2024-07-07 15:00:00 138 mm[Hg] Common [facility] blood pressure diastolic 2024-07-07 15:00:00 70 mm[Hg] Common [facility] temperature 2024-07-02 14:00:00 97.2 [degF] Com [facility] bmi 2024-07-02 14:00:00 33.43 kg/m2 Comm on [facility] oximetry 2024-07-02 14:00:00 98 % Commo n [facility] blood pressure systolic 2024-07-02 14:00:00 138 mm[Hg] Common [facility] blood pressure diastolic 2024-07-02 14:00:00 76 mm[Hg] [facility] height 2024-07-02 14:00:00 70 [in_i] Commo n [facility] weight 2024-07-02 14:00:00 233 [lb_av] Comm on [facility] height 2024-05-27 11:00:00 70 [in_i] Commo n [facility] weight 2024-05-27 11:00:00 240 [lb_av] Comm on [facility] temperature 2024-05-27 11:00:00 98.0 [degF] Com [facility] bmi 2024-05-27 11:00:00 34.43 kg/m2 Comm on [facility] height 2024-04-29 16:30:00 70 [in_i] Commo n [facility] weight 2024-04-29 16:30:00 230 [lb_av] Comm on [facility] temperature 2024-04-29 16:30:00 98 [degF] Comm on [facility] bmi 2024-04-29 16:30:00 33 kg/m2 Commo n [facility] blood pressure systolic 2024-04-29 16:30:00 120 mm[Hg] Common [facility] blood pressure diastolic 2024-04-29 16:30:00 82 mm[Hg] Common [facility] height 2024-02-12 16:20:00 70 [in_i] Commo n [facility] weight 2024-02-12 16:20:00 238.0 [lb_av] Co mmon [facility] temperature 2024-02-12 16:20:00 97.7 [degF] Com mon [facility] bmi 2024-02-12 16:20:00 34.15 kg/m2 Comm on [facility] oximetry 2024-02-12 16:20:00 96 % Commo n [facility] respiratory rate 2024-02-12 16:20:00 17 /min Common [facility] blood pressure systolic 2024-02-12 16:20:00 134 mm[Hg] [facility] pressure diastolic 2024-02-12 16:20:00 72 mm[Hg] Common [facility] height 2023-12-18 08:00:00 70 [in_i] Commo n [facility] weight 2023-12-18 08:00:00 249 [lb_av] Comm on [facility] temperature 2023-12-18 08:00:00 98 [degF] Comm on [facility] bmi 2023-12-18 08:00:00 35.72 kg/m2 Comm on [facility] blood pressure systolic 2023-12-18 08:00:00 120 mm[Hg] [facility] diastolic 2023-12-18 08:00:00 80 mm[Hg] Common [facility] height 2023-10-18 09:30:00 70 [in_i] Commo n [facility] weight 2023-10-18 09:30:00 245 [lb_av] Comm on [facility] temperature 2023-10-18 09:30:00 98 [degF] Comm on [facility] bmi 2023-10-18 09:30:00 35.15 kg/m2 Comm on [facility] blood pressure systolic 2023-10-18 09:30:00 120 mm[Hg] Common [facility] blood pressure diastolic 2023-10-18 09:30:00 80 mm[Hg] Common [facility] height 2023-08-10 10:20:00 70 [in_i] Commo n [facility] weight 2023-08-10 10:20:00 237 [lb_av] Comm on [facility] bmi 2023-08-10 10:20:00 34 kg/m2 Commo n [facility] blood pressure systolic 2023-08-10 10:20:00 124 mm[Hg] [facility] blood pressure diastolic 2023-08-10 10:20:00 76 mm[Hg] Common [facility] Systolic blood pressure 2023-06-07 09:48:00 144 mm[Hg] [facility] Diastolic blood pressure 2023-06-07 09:48:00 82 mm[Hg] [facility] Heart rate 2023-06-07 09:48:00 69 /min [facility] Body temperature 2023-06-07 09:48:00 36.61 Cornelia [facility] Respiratory rate 2023-06-07 09:48:00 18 /min [facility] Body height 2023-06-07 09:48:00 175.3 cm [facility] Body weight 2023-06-07 09:48:00 113.399 kg [facility] BMI 2023-06-07 09:48:00 36.92 kg/m2 [facility] Oxygen saturation in Arterial blood by Pulse oximetry 2023-06-07 09:48:00 99 /min [facility] height 2023-05-28 16:40:00 70 [in_i] Commo n [facility] weight 2023-05-28 16:40:00 237 [lb_av] Comm on [facility] temperature 2023-05-28 16:40:00 98 [degF] Comm on [facility] bmi 2023-05-28 16:40:00 34 kg/m2 Commo n [facility] blood pressure systolic 2023-05-28 16:40:00 120 mm[Hg] [facility] blood pressure diastolic 2023-05-28 16:40:00 80 mm[Hg] [facility] height 2023-03-28 15:20:00 70 [in_i] Commo n [facility] weight 2023-03-28 15:20:00 241.8 [lb_av] Co mmon [facility] temperature 2023-03-28 15:20:00 97.7 [degF] Com mon [facility] bmi 2023-03-28 15:20:00 34.69 kg/m2 Comm on [facility] oximetry 2023-03-28 15:20:00 97 % Commo n [facility] respiratory rate 2023-03-28 15:20:00 17 /min Common [facility] blood pressure systolic 2023-03-28 15:20:00 139 mm[Hg] [facility] blood pressure diastolic 2023-03-28 15:20:00 73 mm[Hg] [facility] height 2023-02-12 09:00:00 70 [in_i] Commo n [facility] weight 2023-02-12 09:00:00 245 [lb_av] Comm on [facility] bmi 2023-02-12 09:00:00 35.15 kg/m2 Comm on [facility] height 2023-01-23 13:00:00 70 [in_i] Commo n [facility] weight 2023-01-23 13:00:00 245 [lb_av] Comm on [facility] temperature 2023-01-23 13:00:00 98 [degF] Comm on [facility] bmi 2023-01-23 13:00:00 35.15 kg/m2 Comm on [facility] blood pressure systolic 2023-01-23 13:00:00 120 mm[Hg] Common [facility] blood pressure diastolic 2023-01-23 13:00:00 80 mm[Hg] [facility] height 2022-11-21 08:00:00 70 [in_i] Commo n [facility] weight 2022-11-21 08:00:00 245 [lb_av] Comm on [facility] temperature 2022-11-21 08:00:00 98 [degF] Comm on [facility] bmi 2022-11-21 08:00:00 35.15 kg/m2 Comm on [facility] blood pressure systolic 2022-11-21 08:00:00 138 mm[Hg] [facility] blood pressure diastolic 2022-11-21 08:00:00 76 mm[Hg] [facility] height 2022-09-19 11:40:00 70 [in_i] Commo n [facility] weight 2022-09-19 11:40:00 245 [lb_av] Comm on [facility] temperature 2022-09-19 11:40:00 98 [degF] Comm on [facility] bmi 2022-09-19 11:40:00 35.15 kg/m2 Comm on [facility] blood pressure systolic 2022-09-19 11:40:00 142 mm[Hg] Common [facility] blood pressure diastolic 2022-09-19 11:40:00 80 mm[Hg] [facility] height 2022-08-30 09:00:00 70 [in_i] Commo n [facility] weight 2022-08-30 09:00:00 246.8 [lb_av] Co mmon [facility] temperature 2022-08-30 09:00:00 97.5 [degF] Com mon [facility] bmi 2022-08-30 09:00:00 35.41 kg/m2 Comm on [facility] oximetry 2022-08-30 09:00:00 98 % Commo n [facility] respiratory rate 2022-08-30 09:00:00 18 /min Common [facility] blood pressure systolic 2022-08-30 09:00:00 158 mm[Hg] Common [facility] blood pressure diastolic 2022-08-30 09:00:00 87 mm[Hg] Common [facility] height 2022-07-20 11:10:00 70 [in_i] Commo n [facility] weight 2022-07-20 11:10:00 245 [lb_av] Comm on [facility] temperature 2022-07-20 11:10:00 98 [degF] Comm on [facility] bmi 2022-07-20 11:10:00 35.15 kg/m2 Comm on [facility] blood pressure systolic 2022-07-20 11:10:00 138 mm[Hg] [facility] blood pressure diastolic 2022-07-20 11:10:00 88 mm[Hg] [facility] height 2022-06-02 10:15:00 70 [in_i] Commo n [facility] weight 2022-06-02 10:15:00 246.6 [lb_av] Co mmon [facility] temperature 2022-06-02 10:15:00 98.3 [degF] Com mon [facility] bmi 2022-06-02 10:15:00 35.38 kg/m2 Comm on [facility] oximetry 2022-06-02 10:15:00 99 % Commo n [facility] respiratory rate 2022-06-02 10:15:00 16 /min [facility] blood pressure systolic 2022-06-02 10:15:00 159 mm[Hg] Common [facility] blood pressure diastolic 2022-06-02 10:15:00 79 mm[Hg] Common [facility] height 2022-05-12 07:50:00 70 [in_i] Commo n [facility] weight 2022-05-12 07:50:00 245 [lb_av] Comm on [facility] temperature 2022-05-12 07:50:00 98 [degF] Comm on [facility] bmi 2022-05-12 07:50:00 35.15 kg/m2 Comm on [facility] blood pressure systolic 2022-05-12 07:50:00 120 mm[Hg] [facility] blood pressure diastolic 2022-05-12 07:50:00 80 mm[Hg] Common [facility] height 2022-05-03 09:15:00 70 [in_i] Commo n [facility] weight 2022-05-03 09:15:00 245.8 [lb_av] Co mmon [facility] temperature 2022-05-03 09:15:00 98.2 [degF] Com mon [facility] bmi 2022-05-03 09:15:00 35.26 kg/m2 Comm on [facility] oximetry 2022-05-03 09:15:00 98 % Commo n [facility] respiratory rate 2022-05-03 09:15:00 16 /min Common [facility] blood pressure systolic 2022-05-03 09:15:00 158 mm[Hg] [facility] blood pressure diastolic 2022-05-03 09:15:00 88 mm[Hg] [facility] height 2022-03-16 09:20:00 70 [in_i] Commo n [facility] weight 2022-03-16 09:20:00 240 [lb_av] Comm on [facility] temperature 2022-03-16 09:20:00 98 [degF] Comm on [facility] bmi 2022-03-16 09:20:00 34.43 kg/m2 Comm on [facility] blood pressure systolic 2022-03-16 09:20:00 130 mm[Hg] [facility] blood pressure diastolic 2022-03-16 09:20:00 76 mm[Hg] Common [facility] height 2022-01-11 08:00:00 70 [in_i] Commo n [facility] weight 2022-01-11 08:00:00 238 [lb_av] Comm on [facility] temperature 2022-01-11 08:00:00 97.4 [degF] Com mon [facility] bmi 2022-01-11 08:00:00 34.15 kg/m2 Comm on [facility] blood pressure systolic 2022-01-11 08:00:00 132 mm[Hg] [facility] blood pressure diastolic 2022-01-11 08:00:00 75 mm[Hg] [facility] height 2021-11-16 07:50:00 70 [in_i] Commo n [facility] weight 2021-11-16 07:50:00 240 [lb_av] Comm on [facility] temperature 2021-11-16 07:50:00 98 [degF] Comm on [facility] bmi 2021-11-16 07:50:00 34.43 kg/m2 Comm on [facility] blood pressure systolic 2021-11-16 07:50:00 120 mm[Hg] [facility] blood pressure diastolic 2021-11-16 07:50:00 80 mm[Hg] [facility] height 2021-10-11 10:40:00 70 [in_i] Commo n [facility] weight 2021-10-11 10:40:00 250 [lb_av] Comm on [facility] temperature 2021-10-11 10:40:00 98.6 [degF] Com mon [facility] bmi 2021-10-11 10:40:00 35.87 kg/m2 Comm on [facility] oximetry 2021-10-11 10:40:00 96 % Commo n [facility] blood pressure systolic 2021-10-11 10:40:00 140 mm[Hg] Common [facility] blood pressure diastolic 2021-10-11 10:40:00 81 mm[Hg] [facility] height 2021-09-14 08:00:00 70 [in_i] Commo n [facility] weight 2021-09-14 08:00:00 250.2 [lb_av] Co mmon [facility] temperature 2021-09-14 08:00:00 97.3 [degF] Com mon [facility] bmi 2021-09-14 08:00:00 35.9 kg/m2 Commo n [facility] oximetry 2021-09-14 08:00:00 100 % Commo n [facility] respiratory rate 2021-09-14 08:00:00 18 /min [facility] blood pressure systolic 2021-09-14 08:00:00 138 mm[Hg] [facility] blood pressure diastolic 2021-09-14 08:00:00 78 mm[Hg] [facility] Systolic blood pressure 2021-06-04 16:02:00 165 mm[Hg] [facility] Diastolic blood pressure 2021-06-04 16:02:00 77 mm[Hg] [facility] Body temperature 2021-06-04 15:58:00 36.44 Cornelia [facility] Respiratory rate 2021-06-04 15:58:00 17 /min [facility] Body height 2021-06-04 15:58:00 175.3 cm [facility] Body weight 2021-06-04 15:58:00 108.863 kg [facility] BMI 2021-06-04 15:58:00 35.44 kg/m2 [facility] Oxygen saturation in Arterial blood by Pulse oximetry 2021-06-04 15:58:00 98 /min [facility] Heart rate 2021-06-04 15:58:00 73 /min [facility] Systolic blood pressure 2020-12-13 15:03:00 171 mm[Hg] [facility] Diastolic blood pressure 2020-12-13 15:03:00 98 mm[Hg] [facility] Heart rate 2020-12-13 15:03:00 80 /min Community [facility] Body temperature 2020-12-13 15:03:00 36.28 Cornelia [facility] Respiratory rate 2020-12-13 15:03:00 18 /min [facility] Body weight 2020-12-13 15:03:00 113.399 kg [facility] Oxygen saturation in Arterial blood by Pulse oximetry 2020-12-13 15:03:00 100 /min [facility] Systolic blood pressure 2020-12-13 15:03:00 171 mm[Hg] [facility] Diastolic blood pressure 2020-12-13 15:03:00 98 mm[Hg] [facility] Heart rate 2020-12-13 15:03:00 80 /min [facility] Body temperature 2020-12-13 15:03:00 36.28 Cornelia [facility] Respiratory rate 2020-12-13 15:03:00 18 /min [facility] Body weight 2020-12-13 15:03:00 113.399 kg [facility] Oxygen saturation in Arterial blood by Pulse oximetry 2020-12-13 15:03:00 100 /min [facility] Procedures Procedure Date / Time Performed Performing Clinicia n Source NOTICE OF PRIVACY PRACTICES 2023-06-07 09:43:32 Doctor Unassigned, [place] [facility] CONSENT/REFUSAL FOR DIAGNOSIS AND TREATMENT 2023-06-07 09:43:02 Doctor Unassigned, [place] [facility] ASSIGNMENT OF BENEFITS 2020-12-13 15:12:04 Docto r Unassigned, [place] [facility] CONSENT/REFUSAL FOR DIAGNOSIS AND TREATMENT 2020-12-13 14:49:57 Doctor Unassigned, [place] [facility] NOTICE OF PRIVACY PRACTICES 2020-12-13 14:49:09 Doctor Unassigned, [place] [facility] Encounters Start Date/Time End Date/Time Encounter Type Admission Type Attending [facility] Care Facility Care Department Encounter ID Source 2024-08-12 11:49:00 [facility] [id number] [facility] 2024-07-09 11:38:00 [facility] Ba[facility] [id number] [facility] 2024-06-24 14:56:00 [facility] Ba[facility] [id number] [facility] 2024-05-27 08:55:00 [facility] Ba[facility] [id number] [facility] 2023-05-24 14:54:00 [facility] Ba[facility] [id number] [facility] 2023-03-14 11:22:00 Outpatient Ba, Alberto [facility] [id number] [facility] 2022-11-21 07:44:01 Outpatient Ba, Alberto [facility] [id number] [facility] 2022-10-12 08:53:01 Outpatient Ba, Alberto [facility] [id number] [facility] 2022-10-09 09:56:02 Outpatient Ba, Alberto [facility] [id number] [facility] 2022-09-15 10:52:02 Outpatient Ba, Alberto [facility] [id number] [facility] 2022-05-19 08:45:01 Outpatient Ba, Alberto [facility] [id number] [facility] 2022-05-11 08:36:01 Outpatient Ba, Alberto [facility] [id number] [facility] 2022-03-15 15:44:00 Outpatient Ba, Alberto [facility] [id number] [facility] 2022-01-20 14:51:02 Outpatient Ba, Alberto [facility] [id number] [facility] 2022-01-16 09:05:00 Outpatient Ba, Alberto [facility] [id number] [facility] 2022-01-09 08:50:02 Outpatient Ba, Alberto [facility] [id number] [facility] 2021-12-20 10:18:02 Outpatient Ba, Alberto [facility] [id number] [facility] 2021-11-23 14:24:33 Outpatient Ba, Alberto [facility] [id number] [facility] 2021-11-23 14:13:44 Outpatient Ba, Alberto [facility] [id number] [facility] 2021-11-23 14:02:32 Outpatient Ba, Alberto [facility] [id number] [facility] 2021-11-23 13:33:46 Outpatient Ba, Alberto [facility] [id number] [facility] 2021-11-23 13:33:20 Outpatient Ba, Alberto [facility] [id number] [facility] 2021-11-23 13:22:51 Outpatient Ba, Alberto [facility] [id number] [facility] 2021-11-23 13:11:25 Outpatient Ba, Alberto [facility] [id number] [facility] 2021-11-23 12:49:49 Outpatient Ba, Alberto [facility] [id number] [facility] 2021-11-23 12:49:22 Outpatient Ba, Alberto [facility] [id number] [facility] 2021-11-23 12:38:54 Outpatient [facility] [id number] [facility] 2021-11-23 11:30:00 Outpatient Chow, Yemi [facility] [id number] [facility] 2021-11-23 11:16:59 Outpatient Chow, Yemi [facility] [id number] [facility] 2021-08-27 23:38:51 Emergency [facility] [id number] [facility] 2024-08-11 00:00:00 2024-08-11 00:00:00 (TEL) [facility] [id number] [facility] 2024-07-28 00:00:00 2024-07-28 00:00:00 (TEL) [facility] [id number] [facility] 2024-07-24 00:00:00 2024-07-24 00:00:00 (TEL) [facility] [id number] [facility] 2024-07-07 00:00:00 2024-07-07 00:00:00 CONSULT - OFFICE, L3 [facility]C [facility] [id number] [facility] 2024-07-02 00:00:00 2024-07-02 00:00:00 (TEL) [facility] [id number] [facility] 2024-07-02 00:00:00 2024-07-02 00:00:00 OFFICE VISIT ESTAB PT LEVEL 4 [facility] [id number] [facility] 2024-06-23 00:00:00 2024-06-23 00:00:00 (TEL) [facility]C [facility] [id number] [facility] 2024-05-27 00:00:00 2024-05-27 00:00:00 OFFICE VISIT ESTAB PT LEVEL 3 [facility] [id number] [facility] 2024-05-26 00:00:00 2024-05-26 00:00:00 (TEL) [facility]C [facility] [id number] [facility] 2024-05-13 00:00:00 2024-05-13 00:00:00 (TEL) [facility]C [facility] [id number] [facility] 2024-04-29 00:00:00 2024-04-29 00:00:00 OFFICE VISIT ESTAB PT LEVEL 4 [facility]C ST[facility]C [id number] [facility] 2024-04-29 00:00:00 2024-04-29 00:00:00 (TEL) STLMLC [facility]C [id number] [facility] 2024-04-21 00:00:00 2024-04-21 00:00:00 (TEL) STL[facility]C [facility] [id number] [facility] 2024-02-12 00:00:00 2024-02-12 00:00:00 (WELLNESS) Wellness Visit [facility]C ST[facility] [id number] [facility] 2024-01-01 00:00:00 2024-01-01 00:00:00 Telephone Mumtaz Cope [facility] [id number] [facility] 2023-12-25 00:00:00 2023-12-25 00:00:00 (TEL) STLMLC ST[facility]C [id number] [facility] 2023-12-24 00:00:00 2023-12-24 00:00:00 (TEL) STLMLC ST[facility]C [id number] [facility] 2023-12-18 00:00:00 2023-12-18 00:00:00 OFFICE VISIT ESTAB PT LEVEL 4 [facility]C STL[facility]C [id number] [facility] 2023-11-26 00:00:00 2023-11-26 00:00:00 (TEL) STLMLC ST[facility]C [id number] [facility] 2023-10-18 00:00:00 2023-10-18 00:00:00 OFFICE VISIT ESTAB PT LEVEL 4 [facility]C ST[facility]C [id number] [facility] 2023-10-16 00:00:00 2023-10-16 00:00:00 (TEL) STLMLC ST[facility]C [id number] [facility] 2023-09-17 00:00:00 2023-09-17 00:00:00 (TEL) STLMLC ST[facility]C [id number] [facility] 2023-08-13 00:00:00 2023-08-13 00:00:00 (TEL) STLMLC ST[facility]C [id number] [facility] 2023-08-10 00:00:00 2023-08-10 00:00:00 OFFICE VISIT ESTAB PT LEVEL 4 [facility]C STL[facility]C [id number] [facility] 2023-07-17 00:00:00 2023-07-17 00:00:00 (TEL) STLMLC ST[facility]C [id number] [facility] 2023-06-18 00:00:00 2023-06-18 00:00:00 (TEL) STLMLC [facility]C [id number] [facility] 2023-06-13 00:00:00 2023-06-13 00:00:00 (TEL) STLMLC ST[facility]C [id number] [facility] 2023-06-07 04:57:00 2023-06-07 07:01:00 Emergency X AMINATA TEMPLE [facility] ERT [id number] [facility] 2023-06-07 04:57:00 2023-06-07 07:01:00 Emergency Aminata Temple [facility] [id number] [facility] 2023-05-28 00:00:00 2023-05-28 00:00:00 OFFICE VISIT ESTAB PT LEVEL 3 [facility]C ST[facility]C [id number] [facility] 2023-05-17 00:00:00 2023-05-17 00:00:00 (WEB) STLMLC STL[facility]C [id number] [facility] 2023-05-09 00:00:00 2023-05-09 00:00:00 (TEL) STLMLC ST[facility]C [id number] [facility] 2023-05-07 00:00:00 2023-05-07 00:00:00 (TEL) STLMLC STL[facility]C [id number] [facility] 2023-04-02 00:00:00 2023-04-02 00:00:00 (TEL) STLMLC STLMLC [id number] [facility] 2023-03-28 00:00:00 2023-03-28 00:00:00 PREV VISIT EST AGE 40-64 STLMLC STLMLC [id number] [facility] 2023-03-14 00:00:00 2023-03-14 00:00:00 (TEL) STLMLC STLMLC [id number] [facility] 2023-02-12 00:00:00 2023-02-12 00:00:00 OFFICE VISIT ESTAB PT LEVEL 3 STL[facility]C STLMLC [id number] [facility] 2023-02-12 00:00:00 2023-02-12 00:00:00 (TEL) STLMLC STLMLC [id number] [facility] 2023-01-23 00:00:00 2023-01-23 00:00:00 OFFICE VISIT ESTAB PT LEVEL 3 STLMLC STLMLC [id number] [facility] 2022-12-25 00:00:00 2022-12-25 00:00:00 (TEL) STLMLC STLMLC [id number] [facility] 2022-11-21 00:00:00 2022-11-21 00:00:00 OFFICE VISIT ESTAB PT LEVEL 4 STLMLC STLMLC [id number] [facility] 2022-09-19 00:00:00 2022-09-19 00:00:00 OFFICE VISIT ESTAB PT LEVEL 4 STLMLC STLMLC [id number] [facility] 2022-09-19 00:00:00 2022-09-19 00:00:00 (TEL) STLMLC STLMLC [id number] [facility] 2022-08-30 00:00:00 2022-08-30 00:00:00 OFFICE VISIT EST PT LEVEL 3 STLMLC STLMLC [id number] [facility] 2022-08-30 00:00:00 2022-08-30 00:00:00 (TEL) STLMLC STLMLC [id number] [facility] 2022-08-25 00:00:00 2022-08-25 00:00:00 (TEL) STLMLC STLMLC [id number] [facility] 2022-07-20 00:00:00 2022-07-20 00:00:00 OFFICE VISIT ESTAB PT LEVEL 4 STLMLC STLMLC [id number] [facility] 2022-06-02 00:00:00 2022-06-02 00:00:00 OFFICE VISIT EST PT LEVEL 3 STL[facility]C STLMLC [id number] [facility] 2022-05-12 00:00:00 2022-05-12 00:00:00 OFFICE VISIT ESTAB PT LEVEL 4 STLMLC STLMLC [id number] [facility] 2022-05-03 00:00:00 2022-05-03 00:00:00 OFFICE VISIT ESTAB PT LEVEL 5 STLMLC STLMLC [id number] [facility] 2022-03-16 00:00:00 2022-03-16 00:00:00 OFFICE VISIT ESTAB PT LEVEL 4 STL[facility]C STLMLC [id number] [facility] 2022-01-11 00:00:00 2022-01-11 00:00:00 OFFICE VISIT ESTAB PT LEVEL 4 STLMLC STLMLC [id number] [facility] 2021-11-16 00:00:00 2021-11-16 00:00:00 OFFICE VISIT ESTAB PT LEVEL 4 STLMLC STLMLC [id number] [facility] 2021-10-11 00:00:00 2021-10-11 00:00:00 OFFICE VISIT NEW PT LEVEL 3 STLMLC STLMLC [id number] [facility] 2021-09-14 00:00:00 2021-09-14 00:00:00 OFFICE VISIT ESTAB PT LEVEL 4 STL[facility]C STLMLC [id number] [facility] 2021-07-13 00:00:00 2021-07-13 00:00:00 Outpatient STL[facility]C STL[facility]C [id number] [facility] 2021-06-28 00:00:00 2021-06-28 00:00:00 Outpatient STLMLC STL[facility]C [id number] [facility] 2021-06-04 10:54:07 2021-06-04 11:14:07 Urgent Care Yaw [facility] [id number] [id number] [facility] 2021-06-04 11:00:00 2021-06-04 11:00:00 Outpatient R ELLEN TIDWELL [facility] [id number] [facility] 2021-06-04 00:00:00 2021-06-04 00:00:00 Letter (Out) Doctor Unassigned, [place] [facility] [id number] 350.1.13.10 [id number] [id number] [facility] 2021-06-04 00:00:00 2021-06-04 00:00:00 Letter (Out) Doctor Unassigned, [place] [facility] [id number] 350.1.13.10 [id number] [id number] [facility] 2021-05-31 00:00:00 2021-05-31 00:00:00 Outpatient STLMLC ST[facility]C [id number] [facility] 2021-05-04 00:00:00 2021-05-04 00:00:00 Outpatient STLMLC ST[facility]C [id number] [facility] 2021-04-05 00:00:00 2021-04-05 00:00:00 Outpatient STLMLC STL[facility]C [id number] [facility] 2021-03-07 00:00:00 2021-03-07 00:00:00 Outpatient STLMLC ST[facility]C [id number] [facility] 2021-02-04 00:00:00 2021-02-04 00:00:00 Outpatient STLMLC STL[facility]C [id number] [facility] 2020-12-13 09:00:00 2020-12-13 09:40:00 Emergency Mere Sanford Naye [facility] [id number] 350.1.13.10 [id number] [id number] 2020-12-13 09:00:00 2020-12-13 09:40:00 Emergency Juvenal Mere Yancey [facility] 1.2.840.114 350.1.13.10 4.2.7.2.686 [id number] [facility] 2020-12-13 00:00:00 2020-12-13 00:00:00 Orders Only Doctor Unassigned, [place] [facility] 1.2.840.114 350.1.13.10 4.2.7.2.686 [id number] 2020-12-13 00:00:00 2020-12-13 00:00:00 Orders Only Doctor Unassigned, [place] [facility] [id number] 350.1.13.10 4.2.7.2.686 [id number] [facility] 2020-07-07 16:34:00 2020-07-07 16:34:00 [facility] [id number] [facility] 2020-07-07 15:00:00 2020-07-07 15:00:00 [facility] [id number] [facility] 2020-06-15 13:15:00 2020-06-15 13:15:00 Outpatient JOSE KUMAR [facility] [id number] [facility] 2020-05-31 13:12:00 2020-05-31 13:12:00 [facility] [id number] [facility] 2020-05-27 08:00:00 2020-05-27 08:00:00 [facility] [id number] [facility] 2020-05-24 09:47:00 2020-05-24 09:47:00 [facility] [id number] [facility] 2020-05-24 08:42:00 2020-05-24 08:42:00 [facility] [id number] [facility] 2020-05-04 09:18:00 2020-05-04 09:18:00 [facility] [id number] [facility] 2020-05-04 08:20:00 2020-05-04 08:20:00 [facility] [id number] [facility] 2020-05-03 16:03:00 2020-05-03 16:03:00 [facility] [id number] [facility] 2020-04-27 10:30:00 2020-04-27 10:30:00 [facility] [id number] [facility] 2020-04-12 11:00:00 2020-04-12 11:00:00 [facility] [id number] [facility] 2020-04-08 08:00:00 2020-04-08 08:00:00 [facility] [id number] [facility] 2020-04-01 16:18:00 2020-04-01 16:18:00 [facility] [id number] [facility] 2020-03-30 09:05:00 2020-03-30 09:05:00 [facility] [id number] [facility] 2020-03-15 10:30:00 2020-03-15 10:30:00 [facility] [id number] [facility] 2020-02-26 09:42:00 2020-02-26 09:42:00 [facility] [id number] [facility] 2020-02-24 11:54:00 2020-02-24 11:54:00 [facility] [id number] [facility] 2020-02-02 08:00:00 2020-02-02 08:00:00 [facility] [id number] [facility] Results Test Description Test Time Test Comments Results Result Co mments Source CBC W/AUTO [id number] 00:00:00* Test Item Value Reference Range Interpretation Comme nts NUCLEATED RBCS (test code = 34186-3) 0.0 /100 WBC'S See_Comment [Automated [employer]] The system which generated this result transmitted reference range: 0.0 /100 WBC'S. The reference range was not used to interpret this result as normal/abnormal. ABSOLUTE EOSINOPHILS (test code = 96816-3) 0.16 K/UL See_Comment [Automated [employer]] The system which generated this result transmitted reference range: 0.00-0.50 K/UL. The reference range was not used to interpret this result as normal/abnormal. ABSOLUTE LYMPHOCYTES (test code = 16601-1) 1.46 K/UL See_Comment [Automated messa ge] The system which generated this result transmitted reference range: 1.00-4.00 K/UL. The reference range was not used to interpret this result as normal/abnormal. ABSOLUTE MONOCYTES (test code = 36282-9) 0.29 K/UL See_Comment [Automated messa ge] The system which generated this result transmitted reference range: 0.20-1.00 K/UL. The reference range was not used to interpret this result as normal/abnormal. ABSOLUTE NEUTROPHILS (test code = 24128-9) 4.25 K/UL See_Comment [Automated messa ge] The system which generated this result transmitted reference range: 1.50-7.50 K/UL. The reference range was not used to interpret this result as normal/abnormal. BASOPHILS (test code = 12695-6) 1.0 % EOSINOPHILS (test code = 91866-4) 2.6 % HEMATOCRIT (test code = 85514-5) 38.4 % See_Comment L [Automated messa ge] [...] result as normal/abnormal. LYMPHOCYTES (test code = 89977-4) 23.4 % MCH (test code = 54509-9) 30.4 PG See_Comment [Automated messa ge] The system which generated this result transmitted reference range: 25.0-33.0 PG. The reference range was not used to interpret this result as normal/abnormal. MCHC (test code = 49979-2) 35.7 G/DL See_Comment [Automated messa ge] The system which generated this result transmitted reference range: 31.0-36.0 G/DL. The reference range was not used to interpret this result as normal/abnormal. MCV (test code = 17277-8) 85.1 fL See_Comment [Automated messa ge] The system which generated this result transmitted reference range: 80.0-99.0 fL. The reference range was not used to interpret this result as normal/abnormal. MONOCYTES (test code = 56136-0) 4.6 % NEUTROPHILS (test code = 82879-1) 67.9 % PLATELET COUNT (test code = 69634-0) 134 K/UL See_Comment [Automated messa ge] The system which generated this result transmitted reference range: 130-400 K/UL. The reference range was not used to interpret this result as normal/abnormal. RBC (test code = 29544-9) 4.51 M/UL See_Comment [Automated messa ge] The system which generated this result transmitted reference range: 4.50-6.10 M/UL. The reference range was not used to interpret this result as normal/abnormal. RDW (test code = 76091-8) 14.2 % See_Comment [Automated messa ge] The system which generated this result transmitted reference range: 11.5-15.0 %. The reference range was not used to interpret this result as normal/abnormal. WBC (test code = 00484-8) 6.3 K/UL See_Comment [Automated messa ge] The system which generated this result transmitted reference range: 3.5-11.0 K/UL. The reference range was not used to interpret this result as normal/abnormal. Notes Date/Time Note Provider Source 2024-01-01 14:51:04 Copied from [facility] #[id number]. Topic: Appointment - Appointment Request >> Jan 01, 2024 2:49 PM Patient Magnetic Locater wrote: Olamide Guerrero is a 48 year old male Patient calling back to schedule appointment with Dr. Cope. Melendez [facility] 2024-01-01 14:32:01 I called patient and he hung up on me and I called back to schedule appointment and went to voice box that is not set up. Angulo [facility] 2024-01-01 10:31:17 Copied from [facility] #[id number]. Topic: Appointment - Schedule Appointment >> Jan 01, 2024 10:28 AM Patient Magnetic Locater wrote: Patient called stating that he has previously seen donovan and wants to set an appt I told patient that he has to pre visit with Dr. cope and would need verification if will accept him as a new patient since he is not established patient wants appt for shots in his knee medicine shot and Cortizone shot Please advise Appointment ERY OFFICE MANAGER Eric Chambers [facility] 2023-06-07 06:59:30 Formatting of this n [...] in no apparent distress, Ellen Vinson RN [facility] 2023-06-07 04:50:05 Formatting of this n [...] so he came in to be seen. [facility] 2023-06-07 04:42:00 Formatting of this n ote is different from the original. 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 Promptly contact for obvious discrepancies. Aminata Temple MD 06/07/23 0556 [facility]
[2024-08-20] MEDS ORDERED: IBUPROFEN 400 MG TAB ONE (11:19)
[2024-08-20] MEDS ORDERED: HYDROCODONE/APAP 10/325 TAB ONE (11:19)
--- NOTE | 2024-08-20 12:07 | RAD REPORT ---
EXAMINATION: Tib Fib Right CLINICAL INDICATION: Male, 48 years old. PAIN TECHNIQUE: 2 view radiograph of the right tibia and fibula were obtained. COMPARISON: No prior exam. FINDINGS: No evidence of fracture or dislocation. Normal alignment. No evidence of arthropathy or oth er focal bone lesion. Soft tissue swelling about the upper calf.. IMPRESSION: No acute or significant abnormalities. Soft tissue swelling posteriorly.
--- NOTE | 2024-08-20 12:24 | ER ---
Nurse's Notes [facility] Name: Catracho Motta Age: 48 yrs Sex: Male : 1975 Arrival Date: 08/20/2024 Time: 10:03 Bed 12 Private MD: Diagnosis: Tear of muscle, right lower leg Presentation: 08/20 10:55 Chief complaint: Patient states: Right calf pain onset this morning. Pt states that he cm10 felt something pop this morning when he was reaching over his bed. Coronavirus screen: Client denies travel out of the [place] in the last 14 days. Ebola Screen: Patient denies travel to an Ebola-affected area in the 21 days before illness onset. No symptoms or risks identified at this time. Initial Sepsis Screen: Does the patient meet any 2 criteria? HR > 90 bpm. Does the patient have a suspected source of infection? No. Patient's initial sepsis screen is negative. Risk Assessment: Do you want to hurt yourself or someone else? Patient reports no desire to harm self or others. Onset of symptoms was August 20, 2024. 10:55 Method Of Arrival: Wheelchair cm10 10:55 Acuity: JUANA 4 cm10 Triage Assessment: 10:56 General: Appears in no apparent distress. uncomfortable, Behavior is calm, cooperative. cm10 Neuro: No deficits noted. Level of Consciousness is awake, alert, obeys commands, Oriented to person, place, time, situation, Appropriate for age. Respiratory: No deficits noted. Airway is patent Respiratory effort is even, unlabored, Respiratory pattern is regular, symmetrical. Historical: - Allergies: 10:56 Codeine; cm10 - PMHx: 10:56 adhd; Anxiety; Arthritis; cm10 - PSHx: 10:56 back (ti); carpal tunnel (ti); knee (ti); thumb (ti); cm10 - Immunization history:: Adult Immunizations up to date. - Infectious Disease History:: Denies. - Family history:: not pertinent. - Social history:: Smoking status: Patient denies any tobacco usage or history of. - Hospitalizations: : No recent hospitalization is reported. Vital Signs: 10:55 BP 125 / 101; Pulse 104; Resp 16; Temp 98.8; Pulse Ox 100% ; Weight 105.23 kg; Height 5 cm10 ft. 9 in. ; Pain 10/10; 10:55 Body Mass Index 34.26 (105.23 kg, 175.26 cm) cm10 10:55 Pain Scale: Adult cm10 ED Course: 10:07 Patient arrived in ED. im 10:08 Michael Ahn MD is Attending Physician. rn 10:56 Triage completed. cm10 10:57 Arm band placed on right wrist. Patient placed in waiting room. cm10 11:21 Elba Sanford, RN is Primary Nurse. iw 11:51 XRAY Tib Fib RIGHT In Process Unspecified. EDMS 12:21 Segundo Lee MD is Referral Physician. rn Administered Medications: 11:26 Drug: [place] PO 10 mg-325 mg 1 tabs PO once Route: PO; iw 11:26 Drug: Ibuprofen PO 800 mg PO once Route: PO; iw Outcome: 12:23 Discharge ordered by . rn 13:39 Patient left the ED. iw Signatures: Dispatcher [employer] EDMS Elba Sanford, LEOBARDO RN Michael Ahn MD MD rn Mendoza, Itzel im Martinez, Clarissa, RN RN cm10
--- NOTE | 2024-08-20 12:24 | EDPHYS ---
Physician Documentation [facility] Name: Catracho Motta Age: 48 yrs Sex: Male : 1975 Arrival Date: 08/20/2024 Time: 10:03 Bed 12 Private MD: ED Physician Michael Ahn HPI: 08/20 10:53 This 48 yrs old Male presents to ER via Unassigned with complaints of Leg Pain - right. rn 10:53 The patient presents with decreased range of motion, an injury, pain. The complaints rn affect the right calf. Onset: The symptoms/episode began/occurred this morning. Modifying factors: The symptoms are alleviated by remaining still, the symptoms are aggravated by movement, weight bearing. Severity of symptoms: At their worst the symptoms were moderate, in the emergency department the symptoms are unchanged. The patient has not experienced similar symptoms in the past. Patient reports stepped off of a box yesterday and felt a twinge in right leg. Went away. This morning was leaning over bed with legs fully extended and felt a pop and immediate pain in right calf muscle. Denies pain to bones or fall or direct trauma. Difficult to bear weight especially weight on ball of foot. Denies any other injury.. Historical: - Allergies: 10:56 Codeine; cm10 - PMHx: 10:56 adhd; Anxiety; Arthritis; cm10 - PSHx: 10:56 back (ti); carpal tunnel (ti); knee (ti); thumb (ti); cm10 - Immunization history:: Adult Immunizations up to date. - Infectious Disease History:: Denies. - Family history:: not pertinent. - Social history:: Smoking status: Patient denies any tobacco usage or history of. - Hospitalizations: : No recent hospitalization is reported. ROS: 10:53 Constitutional: Negative for fever, chills, and weight loss, Cardiovascular: Negative rn for chest pain, palpitations, and edema, Respiratory: Negative for shortness of breath, cough, wheezing, and pleuritic chest pain, MS/Extremity: Positive for right calf pain and injury Skin: Negative for injury, rash, and discoloration, Neuro: Negative for weakness or tingling of the right leg Exam: 10:53 Constitutional: This is a well developed, well nourished patient who is awake, alert, rn in wheelchair MS/ Extremity: Isolated pain to right calf muscle without ecchymosis. Mild swelling noted in calf muscle. No bony tenderness or deformity. Pain with dorsiflexion and plantarflexion of the right foot with pain located in center of calf muscle. No knee pain or tenderness. No tib or fib tenderness or deformity. Vital Signs: 10:55 BP 125 / 101; Pulse 104; Resp 16; Temp 98.8; Pulse Ox 100% ; Weight 105.23 kg; Height 5 cm10 ft. 9 in. ; Pain 10/; 10:55 Body Mass Index 34.26 (105.23 kg, 175.26 cm) cm10 10:55 Pain Scale: Adult cm10 MDM: 10:08 Medical Screening Exam initiated rn 12:20 Differential diagnosis: closed fracture, contusion, Tendon rupture, muscle rupture. rn Differential diagnosis: Muscle tear, partial tear. Data reviewed: vital signs, nurses notes. Data reviewed: radiologic studies, plain films, and as a result, I will discharge patient. Independent interpretation of the following test(s) in the Emergency Department X-Ray: My interpretation is X-ray right tib-fib images negative for acute fracture or dislocation.. Counseling: I had a detailed discussion with the patient and/or guardian regarding the historical points, exam findings, and any diagnostic results supporting the discharge/admit diagnosis, radiology results, the need for outpatient follow up, to return to the emergency department if symptoms worsen or persist or if there are any questions or concerns that arise at home. Response to treatment: the patient's symptoms have mildly improved after treatment. Special discussion: I discussed with the patient/guardian in detail that at this point there is no indication for admission to the hospital. It is understood, however, that if the symptoms persist or worsen the patient needs to return immediately for re-evaluation. 12:20 ED course: Patient already made an appointment with Dr. Lee tomorrow for MRI and rn further evaluation.. 08/20 10:40 Order name: XRAY Tib Fib RIGHT; Complete Time: 12:17 rn 08/20 10:40 Order name: Sharan Wrap; Complete Time: 19:21 rn Administered Medications: 11:26 Drug: [place] PO 10 mg-325 mg 1 tabs PO once Route: PO; iw 11:26 Drug: Ibuprofen PO 800 mg PO once Route: PO; iw Disposition Summary: 08/20/24 12:23 Discharge Ordered Notes: Location: Home rn Problem: new rn Symptoms: have improved rn Condition: Stable rn Diagnosis - Tear of muscle, right lower leg rn Followup: rn - With: Segundo Lee MD - When: Tomorrow - Reason: Recheck today's complaints, Re-evaluation by your physician Discharge Instructions: - Discharge Summary Sheet rn - Crutch Use, Adult rn - Muscle Strain rn - Medial Head Gastrocnemius Tear Rehab-SportsMed rn Forms: - Medication Reconciliation Form rn - Antibiotic commander internal affairs - Prescription Opioid Use rn - Patient Portal Instructions rn - Leadership Thank You Letter rn Signatures: Dispatcher [employer] Elba Keller RN RN Michael Manriquez MD MD rn Martinez, Clarissa, RN RN cm10 Corrections: (The following items were deleted from the chart) 10:54 10:53 Constitutional: Negative for fever, chills, and weight loss, Cardiovascular: rn Negative for chest pain, palpitations, and edema, Respiratory: Negative for shortness of breath, cough, wheezing, and pleuritic chest pain, MS/Extremity: Positive for right calf pain and injury Skin: Negative for injury, rash, and discoloration, rn
[2024-08-20 18:36] VITALS: BP 125/101; TEMP 98.8; O2SAT 100
== END 2024-08-20 13:39 | disposition home or self-care (01) ==
LOC: ER 10:03
DX: S86.911A Strain of unspecified muscle(s) and tendon(s) at lower leg level, right leg, initial encounter (principal)

== ENCOUNTER 2024-10-18 21:43 | Emergency (ER) | payer BC ==
--- OUTSIDE RECORDS SUMMARY | 2024-10-18 21:46 | XMS REPORT | Continuity of Care Document ---
Author Name Unknown Address [address] [facility] [address] [place] [address] [facility] Address [address] [facility] [address] [place] [address] Care Team Providers Care Parts Cataloger Name Role Phone Jose Ding MD Primary Care Physician Alberto Ba Attending Clinician Unavailable Yemi Chow Attending Clinician Unavailable Mumtaz Cope MD Attending Clinician [phone] AMINATA LOWRY Attending Clinician Unavailable Aminata Lowry MD Attending Clinician [phone] Ellen Austin MD Attending Clinician [phone] ELLEN AUSTIN Attending Clinician Unavailable Doctor Unassigned, [place] Attending Clinician U Mere Coyle DO Attending Clinician [phone] JOSE DING Attending Clinician Unaaishwarya wilson Payers Payer Name Policy Type Policy Number Effective Date Expirati on Date Source [facility] 6 [id number] 2023 00:00:00 [facility] 6 [id number] [facility] AETNA 53 [id number] 2021 00:00:00 [facility] Problems Condition Name Condition Details Condition Category Status Onset Date Resolution Date Last Treatment Date Treating Clinician Comments Source Anxiety Anxiety Disease Active 2014-10 00:00: 00 [facility] Headache Headache Disease Active 2014-10 00:00: 00 [facility] Insomnia Insomnia Disease Active 2014-10 00:00: 00 [facility] Muscle spasm Muscle spasm Disease Active 2014-10 00:00: 00 [facility] Low back ache Low back ache Disease Active 2014-10 00:00: 00 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 Problem [facility] [id number] Prostate nodule Problem [facility] [id number] Hypogonado tropic hypogonadi sm Problem [facility] [id number] Hypothyroi dism, unspecifie d type Problem [facility] [id number] Hyperestro genism in male Problem [facility] [id number] Mixed hyperlipid emia Problem [facility] Carpal tunnel syndrome Carpal tunnel syndrome, right Problem [facility] [id number] Current moderate episode of major depressive disorder without prior episode Problem [facility] [id number] Benzodiaze pine dependence , continuous Problem [facility] [id number] Attention deficit hyperactiv ity disorder (ADHD), predominan tly inattentiv e type Problem [facility] [id number] Hypothyroi dism (acquired) Problem [facility] [id number] Body mass index [BMI] 35.0-35.9, adult Problem [facility] [id number] Morbid (severe) obesity due to excess calories Problem [facility] [id number] Generalize d anxiety disorder Problem [facility] [id number] Panic disorder [episodic paroxysmal anxiety] Problem [facility] [id number] Repetitive intrusions of sleep Problem [facility] [id number] 00 Daytime somnolence Problem [facility] [id number] Chronic fatigue Problem [facility] [id number] Type 2 diabetes mellitus with hyperglyce ana, without long-term current use of insulin Problem [facility] Allergies, Adverse Reactions, Alerts Allergy Name Allergy Type Status Severity Reaction(s) Onset Date Inactive Date Treating Clinician Comments Source ALPRAZOL AM DRUG INGREDI Active Other-Cmnt 06-07 00:00: 00 [facility] Alprazol am Propensi ty to adverse reaction s Active Other - See comments 06-07 00:00: [address] [facility] CODEINE DRUG INGREDI Active Unknown-Cmnt 2014-10 00:00: 00 [facility] PROPOXYP HENE N-ACETAM INOPHEN DRUG Active Unknown-Cmnt 2014-10 00:00: 00 [facility] Codeine Propensi ty to adverse reaction s Active Unknown - See comments 2014-10 00:00: 00 [facility] Propoxyp hene N-Acetam inophen Propensi ty to adverse reaction s Active Unknown - See comments 2014-10 00:00: 00 [facility] codeine codeine Active [facility] Social History Social Habit Start Date Stop Date Quantity Comments Source Gender identity [facility] Exposure to SARS-CoV-2 (event) Not sure [facility] History of Tobacco Use [facility] Sex Assigned At [facility] History of Social function 2021-06-04 00:00:00 2021-06-04 00:00:00 [facility] Tobacco use and exposure 2021-06-04 00:00:00 2021-06-04 00:00:00 Smokeless tobacco non-user [facility] Smoking Status Start Date Stop Date Source Unknown if ever smoked [facility] Never Smoker [facility] Medications Ordered Medication Name Filled Medication Name Start Date Stop Date Current Medication? Ordering Clinician Indication Dosage Frequency Signature (SIG) Comments Components Source Amphetamine -Dextroamph etamine 30 MG Amphetamine -Dextroamph etamine 30 MG 2023-10 00:00: 00 No 1{table t} BID Amphetamin e-Dextroam phetamine 30 MG clonazePAM 2 MG clonazePAM 2 MG 2023-10 00:00: 00 No 1{table t_at_be dtime} QD clonazePAM 2 MG Lidocaine Lidocaine 07-07 00:00: 00 No 1mL [facility] Kenalog (Triamcinol one) Kenalog (Triamcinol one) 07-07 00:00: 00 No 1mL [facility] ibuprofen 800 mg tablet 06-07 00:00: 00 Yes [id number] 800mg Take 1 tablet by mouth every 8 (eight) hours. [facility] erythromyci n 5 mg/gram (0.5 %) ophthalmic ointment 06-07 00:00: 00 Yes [id number] .[id number][in_u s] Place 0.5 Inches in both eyes 4 (four) times daily. [facility] testosteron e cypionate (DEPO-TESTO STERONE) 200 mg/mL injection 06-04 16:01: 17 Yes 200mg 200 mg by Intramuscu lar route once every month. [facility] cyclobenzap rine (AMRIX) 15 mg 24 hr capsule 06-04 16:01: 17 Yes 15mg Take 15 mg by mouth once daily as needed for Muscle Spasms. [facility] levothyroxi ne (SYNTHROID) 75 mcg tablet 06-04 16:00: 50 Yes 75ug Take 75 mcg by mouth every morning. [facility] testosteron e cypionate (DEPO-TESTO STERONE) 200 mg/mL injection 06-04 11:01: 17 Yes 200mg 200 mg by Intramuscu lar route once every month. [facility] cyclobenzap rine (AMRIX) 15 mg 24 hr capsule 06-04 11:01: 17 Yes 15mg Take 15 mg by mouth once daily as needed for Muscle Spasms. [facility] levothyroxi ne (SYNTHROID) 75 mcg tablet 06-04 11:00: 50 Yes 75ug Take 75 mcg by mouth every morning. [facility] cephALEXin (KEFLEX) 500 mg capsule 06-04 00:00: 00 06-10 04:59 :00 No [id number] 500mg Take 1 capsule by mouth 4 (four) times daily for [address] [facility] dextroamphe tamine-amph etamine 30 mg tablet 05-20 00:00: 00 Yes 30mg Take 30 mg by mouth 2 (two) times daily. [facility] ondansetron (ZOFRAN-ODT ) disintegrat ing tablet 4 mg 12-13 16:15: 00 12-13 15:05 :00 No 4mg 4 mg, Oral, ONCE, 1 dose, 12/13/20 at 1015, Routine [facility] testosteron e cypionate (DEPO-TESTO STERONE) 200 mg/mL injection 12-13 15:04: 06 Yes 200mg 200 mg by Intramuscu lar route once every month. [facility] levothyroxi ne (SYNTHROID) 75 mcg tablet 12-13 15:04: 06 Yes 75ug Take 75 mcg by mouth every morning. [facility] cyclobenzap rine (AMRIX) 15 mg 24 hr capsule 15 15:04: 06 Yes 15mg Take 15 mg by mouth once daily as needed for Muscle Spasms. [facility] Depo-Medrol (Methylpred nisolone) 40mg Depo-Medrol (Methylpred nisolone) 40mg 03-15 00:00: 00 No 40mg [facility] Bupivicaine [place] Bupivicaine [place] 03-15 00:00: 00 No 1mL [facility] testosteron e cypionate (DEPO-TESTO STERONE) 200 mg/mL injection 2014-10 19:32: 19 Yes 200mg 200 mg by Intramuscu lar route once every month. [facility] levothyroxi ne (SYNTHROID) 75 mcg tablet 2014-10 19:32: 19 Yes 75ug Take 75 mcg by mouth every morning. [facility] cyclobenzap rine (AMRIX) 15 mg 24 hr capsule 2014-10 19:32: 19 Yes 15mg Take 15 mg by mouth once daily as needed for Muscle Spasms. [facility] clonazePAM (KLONOPIN) 1 mg tablet 2014-10 00:00: 00 Yes 1mg Take 1 Tab by mouth 2 (two) times daily. [facility] cyclobenzap rine (FLEXERIL) 10 mg tablet 2014-10 00:00: 00 Yes 10mg Take 1 Tab by mouth at bedtime. [facility] SERTraline (ZOLOFT) 100 mg tablet 2014-10 00:00: 00 Yes 100mg Take 1 Tab by mouth daily. Take 1 1/[address] [facility] zolpidem (AMBIEN CR) 12.5 mg CR tablet 2014-10 00:00: 00 Yes 12.5mg Take 1 Tab by mouth at bedtime. [facility] Testosteron e Cypionate 200 MG/ML Testosteron e [...] Time Observation Value Comments S ource height 2024-09-11 14:00:00 70 [in_i] [facility] weight 2024-09-11 14:00:00 232 [lb_av] Comm [facility] temperature 2024-09-11 14:00:00 98.6 [degF] Com [facility] bmi 2024-09-11 14:00:00 33.28 kg/m2 [facility] blood pressure systolic 2024-09-11 14:00:00 127 mm[Hg] [facility] diastolic 2024-09-11 14:00:00 76 mm[Hg] [facility] height 2024-09-05 09:15:00 70 [in_i] [facility] weight 2024-09-05 09:15:00 232 [lb_av] Comm [facility] temperature 2024-09-05 09:15:00 98.3 [degF] Com [facility] bmi 2024-09-05 09:15:00 33.28 kg/m2 [facility] oximetry 2024-09-05 09:15:00 99 % [facility] blood pressure systolic 2024-09-05 09:15:00 138 mm[Hg] [facility] blood pressure diastolic 2024-09-05 09:15:00 82 mm[Hg] [facility] height 2024-08-28 08:30:00 70 [in_i] [facility] weight 2024-08-28 08:30:00 235.1 [lb_av] [facility] temperature 2024-08-28 08:30:00 97.6 [degF] Com [facility] bmi 2024-08-28 08:30:00 33.73 kg/m2 [facility] blood pressure systolic 2024-08-28 08:30:00 128 mm[Hg] [facility] blood pressure diastolic 2024-08-28 08:30:00 79 mm[Hg] [facility] height 2024-08-21 15:15:00 70 [in_i] [facility] weight 2024-08-21 15:15:00 235.5 [lb_av] Co [facility] temperature 2024-08-21 15:15:00 97.4 [degF] Com [facility] bmi 2024-08-21 15:15:00 33.79 kg/m2 [facility] blood pressure systolic 2024-08-21 15:15:00 122 mm[Hg] [facility] blood pressure diastolic 2024-08-21 15:15:00 62 mm[Hg] Common [facility] height 2024-07-07 15:00:00 70 [in_i] [facility] weight 2024-07-07 15:00:00 234.5 [lb_av] Co [facility] temperature 2024-07-07 15:00:00 97.8 [degF] Com [facility] bmi 2024-07-07 15:00:00 33.64 kg/m2 Comm [facility] blood pressure systolic 2024-07-07 15:00:00 138 mm[Hg] [facility] blood pressure diastolic 2024-07-07 15:00:00 70 mm[Hg] [facility] temperature 2024-07-02 14:00:00 97.2 [degF] Com [facility] bmi 2024-07-02 14:00:00 33.43 kg/m2 Comm [facility] oximetry 2024-07-02 14:00:00 98 % [facility] blood pressure systolic 2024-07-02 14:00:00 138 mm[Hg] [facility] blood pressure diastolic 2024-07-02 14:00:00 76 mm[Hg] [facility] height 2024-07-02 14:00:00 70 [in_i] [facility] weight 2024-07-02 14:00:00 233 [lb_av] [facility] height 2024-05-27 11:00:00 70 [in_i] [facility] weight 2024-05-27 11:00:00 240 [lb_av] [facility] temperature 2024-05-27 11:00:00 98.0 [degF] Com [facility] bmi 2024-05-27 11:00:00 34.43 kg/m2 [facility] height 2024-04-29 16:30:00 70 [in_i] [facility] weight 2024-04-29 16:30:00 230 [lb_av] [facility] temperature 2024-04-29 16:30:00 98 [degF] [facility] bmi 2024-04-29 16:30:00 33 kg/m2 [facility] blood pressure systolic 2024-04-29 16:30:00 120 mm[Hg] [facility] blood pressure diastolic 2024-04-29 16:30:00 82 mm[Hg] [facility] height 2024-02-12 16:20:00 70 [in_i] [facility] weight 2024-02-12 16:20:00 238.0 [lb_av] [facility] temperature 2024-02-12 16:20:00 97.7 [degF] Com [facility] bmi 2024-02-12 16:20:00 34.15 kg/m2 [facility] oximetry 2024-02-12 16:20:00 96 % [facility] respiratory rate 2024-02-12 16:20:00 17 /min [facility] blood pressure systolic 2024-02-12 16:20:00 134 mm[Hg] [facility] blood pressure diastolic 2024-02-12 16:20:00 72 mm[Hg] [facility] height 2023-12-18 08:00:00 70 [in_i] [facility] weight 2023-12-18 08:00:00 249 [lb_av] [facility] temperature 2023-12-18 08:00:00 98 [degF] [facility] bmi 2023-12-18 08:00:00 35.72 kg/m2 [facility] blood pressure systolic 2023-12-18 08:00:00 120 mm[Hg] [facility] blood pressure diastolic 2023-12-18 08:00:00 80 mm[Hg] [facility] height 2023-10-18 09:30:00 70 [in_i] [facility] weight 2023-10-18 09:30:00 245 [lb_av] Comm [facility] temperature 2023-10-18 09:30:00 98 [degF] [facility] bmi 2023-10-18 09:30:00 35.15 kg/m2 [facility] blood pressure systolic 2023-10-18 09:30:00 120 mm[Hg] [facility] blood pressure diastolic 2023-10-18 09:30:00 80 mm[Hg] [facility] height 2023-08-10 10:20:00 70 [in_i] [facility] weight 2023-08-10 10:20:00 237 [lb_av] Comm [facility] bmi 2023-08-10 10:20:00 34 kg/m2 [facility] blood pressure systolic 2023-08-10 10:20:00 124 mm[Hg] [facility] blood pressure diastolic 2023-08-10 10:20:00 76 mm[Hg] [facility] Systolic blood pressure 2023-06-07 09:48:00 144 mm[Hg] [facility] Diastolic blood pressure 2023-06-07 09:48:00 82 mm[Hg] [facility] Heart rate 2023-06-07 09:48:00 69 /min [facility] Body temperature 2023-06-07 09:48:00 36.61 [place] [facility] Respiratory rate 2023-06-07 09:48:00 18 /min [facility] Body height 2023-06-07 09:48:00 175.3 cm [facility] Body weight 2023-06-07 09:48:00 113.399 [facility] BMI 2023-06-07 09:48:00 36.92 kg/m2 [facility] Oxygen saturation in Arterial blood by Pulse oximetry 2023-06-07 09:48:00 99 /min [facility] height 2023-05-28 16:40:00 70 [in_i] [facility] weight 2023-05-28 16:40:00 237 [lb_av] Comm [facility] temperature 2023-05-28 16:40:00 98 [degF] Comm [facility] bmi 2023-05-28 16:40:00 34 kg/m2 [facility] blood pressure systolic 2023-05-28 16:40:00 120 mm[Hg] [facility] blood pressure diastolic 2023-05-28 16:40:00 80 mm[Hg] [facility] height 2023-03-28 15:20:00 70 [in_i] [facility] weight 2023-03-28 15:20:00 241.8 [lb_av] [facility] temperature 2023-03-28 15:20:00 97.7 [degF] Com [facility] bmi 2023-03-28 15:20:00 34.69 kg/m2 Comm [facility] oximetry 2023-03-28 15:20:00 97 % [facility] respiratory rate 2023-03-28 15:20:00 17 /min [facility] blood pressure systolic 2023-03-28 15:20:00 139 mm[Hg] [facility] blood pressure diastolic 2023-03-28 15:20:00 73 mm[Hg] [facility] height 2023-02-12 09:00:00 70 [in_i] [facility] weight 2023-02-12 09:00:00 245 [lb_av] Comm on [facility] bmi 2023-02-12 09:00:00 35.15 kg/m2 Comm on [facility] height 2023-01-23 13:00:00 70 [in_i] [facility] weight 2023-01-23 13:00:00 245 [lb_av] Comm [facility] temperature 2023-01-23 13:00:00 98 [degF] Comm [facility] bmi 2023-01-23 13:00:00 35.15 kg/m2 [facility] blood pressure systolic 2023-01-23 13:00:00 120 mm[Hg] [facility] blood pressure diastolic 2023-01-23 13:00:00 80 mm[Hg] [facility] height 2022-11-21 08:00:00 70 [in_i] [facility] weight 2022-11-21 08:00:00 245 [lb_av] Comm [facility] temperature 2022-11-21 08:00:00 98 [degF] Comm [facility] bmi 2022-11-21 08:00:00 35.15 kg/m2 Comm [facility] blood pressure systolic 2022-11-21 08:00:00 138 mm[Hg] [facility] blood pressure diastolic 2022-11-21 08:00:00 76 mm[Hg] [facility] height 2022-09-19 11:40:00 70 [in_i] [facility] weight 2022-09-19 11:40:00 245 [lb_av] Comm on [facility] temperature 2022-09-19 11:40:00 98 [degF] Comm [facility] bmi 2022-09-19 11:40:00 35.15 kg/m2 Comm [facility] blood pressure systolic 2022-09-19 11:40:00 142 mm[Hg] [facility] blood pressure diastolic 2022-09-19 11:40:00 80 mm[Hg] [facility] height 2022-08-30 09:00:00 70 [in_i] [facility] weight 2022-08-30 09:00:00 246.8 [lb_av] [facility] temperature 2022-08-30 09:00:00 97.5 [degF] Com [facility] bmi 2022-08-30 09:00:00 35.41 kg/m2 Comm [facility] oximetry 2022-08-30 09:00:00 98 % [facility] respiratory rate 2022-08-30 09:00:00 18 /min [facility] blood pressure systolic 2022-08-30 09:00:00 158 mm[Hg] [facility] blood pressure diastolic 2022-08-30 09:00:00 87 mm[Hg] [facility] height 2022-07-20 11:10:00 70 [in_i] [facility] weight 2022-07-20 11:10:00 245 [lb_av] Comm [facility] temperature 2022-07-20 11:10:00 98 [degF] Comm [facility] bmi 2022-07-20 11:10:00 35.15 kg/m2 Comm [facility] blood pressure systolic 2022-07-20 11:10:00 138 mm[Hg] [facility] blood pressure diastolic 2022-07-20 11:10:00 88 mm[Hg] [facility] height 2022-06-02 10:15:00 70 [in_i] [facility] weight 2022-06-02 10:15:00 246.6 [lb_av] [facility] temperature 2022-06-02 10:15:00 98.3 [degF] Com mon [facility] bmi 2022-06-02 10:15:00 35.38 kg/m2 Comm [facility] oximetry 2022-06-02 10:15:00 99 % [facility] respiratory rate 2022-06-02 10:15:00 16 /min [facility] blood pressure systolic 2022-06-02 10:15:00 159 mm[Hg] [facility] blood pressure diastolic 2022-06-02 10:15:00 79 mm[Hg] [facility] height 2022-05-12 07:50:00 70 [in_i] [facility] weight 2022-05-12 07:50:00 245 [lb_av] Comm on [facility] temperature 2022-05-12 07:50:00 98 [degF] Comm [facility] bmi 2022-05-12 07:50:00 35.15 kg/m2 Comm [facility] blood pressure systolic 2022-05-12 07:50:00 120 mm[Hg] [facility] blood pressure diastolic 2022-05-12 07:50:00 80 mm[Hg] [facility] height 2022-05-03 09:15:00 70 [in_i] [facility] weight 2022-05-03 09:15:00 245.8 [lb_av] [facility] temperature 2022-05-03 09:15:00 98.2 [degF] Com [facility] bmi 2022-05-03 09:15:00 35.26 kg/m2 Comm on [facility] oximetry 2022-05-03 09:15:00 98 % [facility] respiratory rate 2022-05-03 09:15:00 16 /min [facility] blood pressure systolic 2022-05-03 09:15:00 158 mm[Hg] [facility] blood pressure diastolic 2022-05-03 09:15:00 88 mm[Hg] [facility] height 2022-03-16 09:20:00 70 [in_i] [facility] weight 2022-03-16 09:20:00 240 [lb_av] Comm on [facility] temperature 2022-03-16 09:20:00 98 [degF] Comm on [facility] bmi 2022-03-16 09:20:00 34.43 kg/m2 Comm on [facility] blood pressure systolic 2022-03-16 09:20:00 130 mm[Hg] [facility] blood pressure diastolic 2022-03-16 09:20:00 76 mm[Hg] [facility] height 2022-01-11 08:00:00 70 [in_i] [facility] weight 2022-01-11 08:00:00 238 [lb_av] Comm on [facility] temperature 2022-01-11 08:00:00 97.4 [degF] Com mon [facility] bmi 2022-01-11 08:00:00 34.15 kg/m2 Comm on [facility] blood pressure systolic 2022-01-11 08:00:00 132 mm[Hg] [facility] blood pressure diastolic 2022-01-11 08:00:00 75 mm[Hg] [facility] height 2021-11-16 07:50:00 70 [in_i] Commo [facility] weight 2021-11-16 07:50:00 240 [lb_av] Comm on [facility] temperature 2021-11-16 07:50:00 98 [degF] Comm on [facility] bmi 2021-11-16 07:50:00 34.43 kg/m2 Comm on [facility] blood pressure systolic 2021-11-16 07:50:00 120 mm[Hg] [facility] blood pressure diastolic 2021-11-16 07:50:00 80 mm[Hg] [facility] height 2021-10-11 10:40:00 70 [in_i] Commo [facility] weight 2021-10-11 10:40:00 250 [lb_av] Comm on [facility] temperature 2021-10-11 10:40:00 98.6 [degF] Com mon [facility] bmi 2021-10-11 10:40:00 35.87 kg/m2 Comm on [facility] oximetry 2021-10-11 10:40:00 96 % Commo n [facility] blood pressure systolic 2021-10-11 10:40:00 140 mm[Hg] Common [facility] blood pressure diastolic 2021-10-11 10:40:00 81 mm[Hg] [facility] height 2021-09-14 08:00:00 70 [in_i] Commo n [facility] weight 2021-09-14 08:00:00 250.2 [lb_av] Co mmon [facility] temperature 2021-09-14 08:00:00 97.3 [degF] Com mon [facility] bmi 2021-09-14 08:00:00 35.9 kg/m2 [facility] oximetry 2021-09-14 08:00:00 100 % [facility] respiratory rate 2021-09-14 08:00:00 18 /min [facility] blood pressure systolic 2021-09-14 08:00:00 138 mm[Hg] [facility] blood pressure diastolic 2021-09-14 08:00:00 78 mm[Hg] [facility] Systolic blood pressure 2021-06-04 16:02:00 165 mm[Hg] [facility] Diastolic blood pressure 2021-06-04 16:02:00 77 mm[Hg] [facility] Body temperature 2021-06-04 15:58:00 36.44 [place] [facility] Respiratory rate 2021-06-04 15:58:00 17 /min [facility] Body height 2021-06-04 15:58:00 175.3 cm [facility] Body weight 2021-06-04 15:58:00 108.863 kg [facility] BMI 2021-06-04 15:58:00 35.44 kg/m2 [facility] Oxygen saturation in Arterial blood by Pulse oximetry 2021-06-04 15:58:00 98 /min [facility] Heart rate 2021-06-04 15:58:00 73 /min [facility] Systolic blood pressure 2020-12-13 15:03:00 171 mm[Hg] [facility] Diastolic blood pressure 2020-12-13 15:03:00 98 mm[Hg] [facility] Heart rate 2020-12-13 15:03:00 80 /min [facility] Body temperature 2020-12-13 15:03:00 36.28 [place] [facility] Respiratory rate 2020-12-13 15:03:00 18 /min [facility] Body weight 2020-12-13 15:03:00 113.399 kg [facility] Oxygen saturation in Arterial blood by Pulse oximetry 2020-12-13 15:03:00 100 /min [facility] Systolic blood pressure 2020-12-13 15:03:00 171 mm[Hg] [facility] Diastolic blood pressure 2020-12-13 15:03:00 98 mm[Hg] [facility] Heart rate 2020-12-13 15:03:00 80 /min [facility] Body temperature 2020-12-13 15:03:00 36.28 [place] [facility] Respiratory rate 2020-12-13 15:03:00 18 /min [facility] Body weight 2020-12-13 15:03:00 113.399 kg [facility] Oxygen saturation in Arterial blood by Pulse oximetry 2020-12-13 15:03:00 100 /min [facility] Procedures Procedure Date / Time Performed Performing Clinicia n Source NOTICE OF PRIVACY PRACTICES 2023-06-07 09:43:32 Doctor Unassigned, [place] [facility] CONSENT/REFUSAL FOR DIAGNOSIS AND TREATMENT 2023-06-07 09:43:02 Doctor Unassigned, [place] [facility] ASSIGNMENT OF BENEFITS 2020-12-13 15:12:04 Docto r Unassigned, [place] [facility] CONSENT/REFUSAL FOR DIAGNOSIS AND TREATMENT 2020-12-13 14:49:57 Doctor Unassigned, [place] [facility] NOTICE OF PRIVACY PRACTICES 2020-12-13 14:49:09 Doctor Unassigned, [place] [facility] Encounters Start Date/Time End Date/Time Encounter Type Admission Type Attending [facility] Care Facility Care Department Encounter ID Source 2024-09-15 08:12:00 Outpatient Ba, Alberto STLMLC STLMLC [id number] [facility] 2024-09-04 14:14:00 Outpatient Ba, Alberto STLMLC STLMLC [id number] [facility] 2024-08-20 10:56:00 Outpatient Ba, Alberto STLMLC STLMLC [id number] [facility] 2024-08-12 11:49:00 Outpatient Ba, Alberto STLMLC STLMLC [id number] [facility] 2024-07-09 11:38:00 Outpatient Ba, Alberto STLMLC STLMLC [id number] [facility] 2024-06-24 14:56:00 Outpatient Ba, Alberto STLMLC STLMLC [id number] [facility] 2024-05-27 08:55:00 Outpatient Ba, Alebrto STLMLC STLMLC [id number] [facility] 2023-05-24 14:54:00 Outpatient Ba, Alberto STLMLC STLMLC [id number] [facility] 2023-03-14 11:22:00 Outpatient Ba, Alberto STLMLC STLMLC [id number] [facility] 2022-11-21 07:44:01 Outpatient Ba, Alberto STLMLC STLMLC [id number] [facility] 2022-10-12 08:53:01 Outpatient Ba, Alberto STLMLC STLMLC [id number] [facility] 2022-10-09 09:56:02 Outpatient Ba, Alberto STLMLC STLMLC [id number] [facility] 2022-09-15 10:52:02 Outpatient Ba, Alberto STLMLC STLMLC [id number] [facility] 2022-05-19 08:45:01 Outpatient Ba, Alberto STLMLC STLMLC [id number] [facility] 2022-05-11 08:36:01 Outpatient Ba, Alberto STLMLC STLMLC [id number] [facility] 2022-03-15 15:44:00 Outpatient Ba, Alberto STLMLC STLMLC [id number] [facility] 2022-01-20 14:51:02 Outpatient Ba, Alberto STLMLC STLMLC [id number] [facility] 2022-01-16 09:05:00 Outpatient Ba, Alberto STLMLC STLMLC [id number] [facility] 2022-01-09 08:50:02 Outpatient Ba, Alberto STLMLC STLMLC [id number] [facility] 2021-12-20 10:18:02 Outpatient Ba, Alberto STLMLC STLMLC [id number] [facility] 2021-11-23 14:24:33 Outpatient Ba, Alberto STLMLC STLMLC [id number] [facility] 2021-11-23 14:13:44 Outpatient Ba, Alberto STLMLC STLMLC [id number] [facility] 2021-11-23 14:02:32 Outpatient Ba, Alberto STLMLC STLMLC [id number] [facility] 2021-11-23 13:33:46 Outpatient Ba, Alberto STLMLC STLMLC [id number] [facility] 2021-11-23 13:33:20 Outpatient Ba, Alberto STLMLC STLMLC [id number] [facility] 2021-11-23 13:22:51 Outpatient Ba, Alberto STLMLC STLMLC [id number] [facility] 2021-11-23 13:11:25 Outpatient Ba, Alberto STLMLC STLMLC [id number] [facility] 2021-11-23 12:49:49 Outpatient Ba, Alberto STLC STLC [id number] [facility] 2021-11-23 12:49:22 Outpatient Ba, Alberto STLC STLMLC [id number] [facility] 2021-11-23 12:38:54 Outpatient STLMLC STLMLC [id number] [facility] 2021-11-23 11:30:00 Outpatient ChowYemi STYAKELIN STLC [id number] [facility] 2021-11-23 11:16:59 Outpatient ChoweYmi STLC STLC [id number] [facility] 2021-08-27 23:38:51 Emergency [facility] [id number] [facility] 2024-09-23 00:00:00 2024-09-23 00:00:00 (WEB) STLMLC STLMLC [id number] [facility] 2024-09-23 00:00:00 2024-09-23 00:00:00 (WEB) STLMLC STLMLC [id number] [facility] 2024-09-11 00:00:00 2024-09-11 00:00:00 (F/U) Follow Up Visit STLMLC STLMLC [id number] [facility] 2024-09-09 00:00:00 2024-09-09 00:00:00 (TEL) STLMLC STLMLC [id number] [facility] 2024-09-05 00:00:00 2024-09-05 00:00:00 OFFICE VISIT ESTAB PT LEVEL 4 STLMLC STLMLC [id number] [facility] 2024-08-28 00:00:00 2024-08-28 00:00:00 (F/U) Follow Up Visit STLMLC STLMLC [id number] [facility] 2024-08-22 00:00:00 2024-08-22 00:00:00 (TEL) STLMLC STLMLC [id number] [facility] 2024-08-21 00:00:00 2024-08-21 00:00:00 (ESTPT) Establishe d Patient STLMLC STLMLC [id number] [facility] 2024-08-11 00:00:00 2024-08-11 00:00:00 (TEL) STLMLC STLMLC [id number] [facility] 2024-07-28 00:00:00 2024-07-28 00:00:00 (TEL) STLMLC STLMLC [id number] [facility] 2024-07-24 00:00:00 2024-07-24 00:00:00 (TEL) STLMLC STLMLC [id number] [facility] 2024-07-07 00:00:00 2024-07-07 00:00:00 CONSULT - OFFICE, L3 STLMLC STLMLC [id number] [facility] 2024-07-02 00:00:00 2024-07-02 00:00:00 (TEL) STLMLC STLMLC [id number] [facility] 2024-07-02 00:00:00 2024-07-02 00:00:00 OFFICE VISIT ESTAB PT LEVEL 4 STLMLC STLMLC [id number] [facility] 2024-06-23 00:00:00 2024-06-23 00:00:00 (TEL) STLMLC STLMLC [id number] [facility] 2024-05-27 00:00:00 2024-05-27 00:00:00 OFFICE VISIT ESTAB PT LEVEL 3 STLMLC STLMLC [id number] [facility] 2024-05-26 00:00:00 2024-05-26 00:00:00 (TEL) STLMLC STLMLC [id number] [facility] 2024-05-13 00:00:00 2024-05-13 00:00:00 (TEL) STLMLC STLMLC [id number] [facility] 2024-04-29 00:00:00 2024-04-29 00:00:00 OFFICE VISIT ESTAB PT LEVEL 4 STLMLC STLMLC [id number] [facility] 2024-04-29 00:00:00 2024-04-29 00:00:00 (TEL) STLMLC STLMLC [id number] [facility] 2024-04-21 00:00:00 2024-04-21 00:00:00 (TEL) STLMLC STLMLC [id number] [facility] 2024-02-12 00:00:00 2024-02-12 00:00:00 (WELLNESS) Wellness Visit STLMLC STLMLC [id number] [facility] 2024-01-01 00:00:00 2024-01-01 00:00:00 Telephone Mumtaz Cope [facility] [id number] [facility] 2023-12-25 00:00:00 2023-12-25 00:00:00 (TEL) STLMLC STLMLC [id number] [facility] 2023-12-24 00:00:00 2023-12-24 00:00:00 (TEL) STLMLC STLMLC [id number] [facility] 2023-12-18 00:00:00 2023-12-18 00:00:00 OFFICE VISIT ESTAB PT LEVEL 4 STLMLC STLMLC [id number] [facility] 2023-11-26 00:00:00 2023-11-26 00:00:00 (TEL) STLMLC STLMLC [id number] [facility] 2023-10-18 00:00:00 2023-10-18 00:00:00 OFFICE VISIT ESTAB PT LEVEL 4 STLMLC STLMLC [id number] [facility] 2023-10-16 00:00:00 2023-10-16 00:00:00 (TEL) STLMLC STLMLC [id number] [facility] 2023-09-17 00:00:00 2023-09-17 00:00:00 (TEL) STLMLC STLMLC [id number] [facility] 2023-08-13 00:00:00 2023-08-13 00:00:00 (TEL) STLMLC STLMLC [id number] [facility] 2023-08-10 00:00:00 2023-08-10 00:00:00 OFFICE VISIT ESTAB PT LEVEL 4 STLMLC STLMLC [id number] [facility] 2023-07-17 00:00:00 2023-07-17 00:00:00 (TEL) STLMLC STLMLC [id number] [facility] 2023-06-18 00:00:00 2023-06-18 00:00:00 (TEL) STLMLC STLMLC [id number] [facility] 2023-06-13 00:00:00 2023-06-13 00:00:00 (TEL) STLMLC STLMLC [id number] [facility] 2023-06-07 04:57:00 2023-06-07 07:01:00 Emergency X AMINATA LOWRY [facility] ERT [id number] [facility] 2023-06-07 04:57:00 2023-06-07 07:01:00 Emergency Aminata Lowry [facility] [id number] [facility] 2023-05-28 00:00:00 2023-05-28 00:00:00 OFFICE VISIT ESTAB PT LEVEL 3 STLMLC STLMLC [id number] [facility] 2023-05-17 00:00:00 2023-05-17 00:00:00 (WEB) STLMLC STLMLC [id number] [facility] 2023-05-09 00:00:00 2023-05-09 00:00:00 (TEL) STLMLC STLMLC [id number] [facility] 2023-05-07 00:00:00 2023-05-07 00:00:00 (TEL) STLMLC STLMLC [id number] [facility] 2023-04-02 00:00:00 2023-04-02 00:00:00 (TEL) STLMLC STLMLC [id number] [facility] 2023-03-28 00:00:00 2023-03-28 00:00:00 PREV VISIT EST AGE 40-64 STLMLC STLMLC [id number] [facility] 2023-03-14 00:00:00 2023-03-14 00:00:00 (TEL) STLMLC STLMLC [id number] [facility] 2023-02-12 00:00:00 2023-02-12 00:00:00 OFFICE VISIT ESTAB PT LEVEL 3 STLMLC STLMLC [id number] [facility] 2023-02-12 00:00:00 2023-02-12 00:00:00 (TEL) STLMLC STLMLC [id number] [facility] 2023-01-23 00:00:00 2023-01-23 00:00:00 OFFICE VISIT ESTAB PT LEVEL 3 STLMLC STLMLC [id number] [facility] 2022-12-25 00:00:00 2022-12-25 00:00:00 (TEL) STLMLC STLMLC [id number] [facility] 2022-11-21 00:00:00 2022-11-21 00:00:00 OFFICE VISIT ESTAB PT LEVEL 4 STLMLC STLMLC [id number] [facility] 2022-09-19 00:00:00 2022-09-19 00:00:00 OFFICE VISIT ESTAB PT LEVEL 4 STLMLC STLMLC [id number] [facility] 2022-09-19 00:00:00 2022-09-19 00:00:00 (TEL) STLMLC STLMLC [id number] [facility] 2022-08-30 00:00:00 2022-08-30 00:00:00 OFFICE VISIT EST PT LEVEL 3 STLMLC STLMLC [id number] [facility] 2022-08-30 00:00:00 2022-08-30 00:00:00 (TEL) STLMLC STLMLC [id number] [facility] 2022-08-25 00:00:00 2022-08-25 00:00:00 (TEL) STLMLC STLMLC [id number] [facility] 2022-07-20 00:00:00 2022-07-20 00:00:00 OFFICE VISIT ESTAB PT LEVEL 4 STLMLC STLMLC [id number] [facility] 2022-06-02 00:00:00 2022-06-02 00:00:00 OFFICE VISIT EST PT LEVEL 3 STLMLC STLMLC [id number] [facility] 2022-05-12 00:00:00 2022-05-12 00:00:00 OFFICE VISIT ESTAB PT LEVEL 4 STLMLC STLMLC [id number] [facility] 2022-05-03 00:00:00 2022-05-03 00:00:00 OFFICE VISIT ESTAB PT LEVEL 5 STLMLC STLMLC [id number] [facility] 2022-03-16 00:00:00 2022-03-16 00:00:00 OFFICE VISIT ESTAB PT LEVEL 4 STLMLC STLMLC [id number] [facility] 2022-01-11 00:00:00 2022-01-11 00:00:00 OFFICE VISIT ESTAB PT LEVEL 4 STLMLC STLMLC [id number] [facility] 2021-11-16 00:00:00 2021-11-16 00:00:00 OFFICE VISIT ESTAB PT LEVEL 4 STLMLC STLMLC [id number] [facility] 2021-10-11 00:00:00 2021-10-11 00:00:00 OFFICE VISIT NEW PT LEVEL 3 STLMLC STLMLC [id number] [facility] 2021-09-14 00:00:00 2021-09-14 00:00:00 OFFICE VISIT ESTAB PT LEVEL 4 STLMLC STLMLC [id number] [facility] 2021-07-13 00:00:00 2021-07-13 00:00:00 Outpatient STLMLC STLMLC [id number] [facility] 2021-06-28 00:00:00 2021-06-28 00:00:00 Outpatient STLMLC STLMLC [id number] [facility] 2021-06-04 10:54:07 2021-06-04 11:14:07 Urgent Care Yaw [facility] .840.114 [id number] [id number] [facility] 2021-06-04 11:00:00 2021-06-04 11:00:00 Outpatient R YAW ELLEN [facility] [id number] [facility] 2021-06-04 00:00:00 2021-06-04 00:00:00 Letter (Out) Doctor Unassigned, [place] [id number] [id number] [facility] 2021-06-04 00:00:00 2021-06-04 00:00:00 Letter (Out) Doctor Unassigned, [place] [facility] [id number] [id number] [id number] [facility] 2021-05-31 00:00:00 2021-05-31 00:00:00 Outpatient STLMLC STLMLC [id number] [facility] 2021-05-04 00:00:00 2021-05-04 00:00:00 Outpatient STLMLC STLMLC [id number] [facility] 2021-04-05 00:00:00 2021-04-05 00:00:00 Outpatient STLMLC STLMLC [id number] [facility] 2021-03-07 00:00:00 2021-03-07 00:00:00 Outpatient STLMLC STLMLC [id number] [facility] 2021-02-04 00:00:00 2021-02-04 00:00:00 Outpatient STLMLC STLMLC [id number] [facility] 2020-12-13 09:00:00 2020-12-13 09:40:00 Emergency [facility] [id number] 350.1.13.10 [id number] [id number] 2020-12-13 09:00:00 2020-12-13 09:40:00 Emergency [facility] [id number] 350.1.13.10 4.2.7.2.[id number] [facility] 2020-12-13 00:00:00 2020-12-13 00:00:00 Orders Only Doctor Unassigned, [place] [facility] [id number] 350.1.13.10 4.2.7.2.686 [id number] 2020-12-13 00:00:00 2020-12-13 00:00:00 Orders Only Doctor Unassigned, [place] [facility] [id number] 350.1.13.10 4.2.7.2.[id number] [facility] 2020-07-07 16:34:00 2020-07-07 16:34:00 [facility] [id number] [facility] 2020-07-07 15:00:00 2020-07-07 15:00:00 [facility] [id number] [facility] 2020-06-15 13:15:00 2020-06-15 13:15:00 Outpatient JOSE KUMAR [facility] [id number] [facility] 2020-05-31 13:12:00 2020-05-31 13:12:00 [facility] [id number] [facility] 2020-05-27 08:00:00 2020-05-27 08:00:00 [facility] [id number] [facility] 2020-05-24 09:47:00 2020-05-24 09:47:00 Outpatient [facility] [id number] [facility] 2020-05-24 08:42:00 2020-05-24 08:42:00 [facility] [id number] [facility] 2020-05-04 09:18:00 2020-05-04 09:18:00 [facility] [id number] [facility] 2020-05-04 08:20:00 2020-05-04 08:20:00 [facility] [id number] [facility] 2020-05-03 16:03:00 2020-05-03 16:03:00 [facility] [id number] [facility] 2020-04-27 10:30:00 2020-04-27 10:30:00 Outpatient [facility] [id number] [facility] 2020-04-12 11:00:00 2020-04-12 11:00:00 Outpatient [facility] [id number] [facility] 2020-04-08 08:00:00 2020-04-08 08:00:00 Outpatient [facility] [id number] [facility] 2020-04-01 16:18:00 2020-04-01 16:18:00 Outpatient [facility] [id number] [facility] 2020-03-30 09:05:00 2020-03-30 09:05:00 Outpatient [facility] [id number] [facility] 2020-03-15 10:30:00 2020-03-15 10:30:00 Outpatient [facility] [id number] [facility] 2020-02-26 09:42:00 2020-02-26 09:42:00 Outpatient [facility] [id number] [facility] 2020-02-24 11:54:00 2020-02-24 11:54:00 Out[facility] [id number] [facility] 2020-02-02 08:00:00 2020-02-02 08:00:00 [facility] [id number] [facility] Results Test Description Test Time Test Comments Results Result Co mments Source CBC W/AUTO [id number] 00:00:00* Test Item Value Reference Range Interpretation Comme nts NUCLEATED RBCS (test code = 51892-6) 0.0 /100 WBC'S See_Comment [Automated messa ge] The system which generated this result transmitted reference range: 0.0 /100 WBC'S. The reference range was not used to interpret this result as normal/abnormal. ABSOLUTE EOSINOPHILS (test code = 31318-9) 0.16 K/UL See_Comment [Automated messa ge] The system which generated this result transmitted reference range: 0.00-0.50 K/UL. The reference range was not used to interpret this result as normal/abnormal. ABSOLUTE LYMPHOCYTES (test code = 87646-7) 1.46 K/UL See_Comment [Automated messa ge] The system which generated this result transmitted reference range: 1.00-4.00 K/UL. The reference range was not used to interpret this result as normal/abnormal. ABSOLUTE MONOCYTES (test code = 35684-4) 0.29 K/UL See_Comment [Automated messa ge] The system which generated this result transmitted reference range: 0.20-1.00 K/UL. The reference range was not used to interpret this result as normal/abnormal. ABSOLUTE NEUTROPHILS (test code = 37292-7) 4.25 K/UL See_Comment [Automated messa ge] The system which generated this result transmitted reference range: 1.50-7.50 K/UL. The reference range was not used to interpret this result as normal/abnormal. BASOPHILS (test code = 68804-1) 1.0 % EOSINOPHILS (test code = 04943-1) 2.6 % HEMATOCRIT (test code = 89040-9) 38.4 % See_Comment L [Automated messa ge] [...] result as normal/abnormal. LYMPHOCYTES (test code = 83273-6) 23.4 % MCH (test code = 16349-1) 30.4 PG See_Comment [Automated messa ge] The system which generated this result transmitted reference range: 25.0-33.0 PG. The reference range was not used to interpret this result as normal/abnormal. MCHC (test code = 88267-8) 35.7 G/DL See_Comment [Automated messa ge] The system which generated this result transmitted reference range: 31.0-36.0 G/DL. The reference range was not used to interpret this result as normal/abnormal. MCV (test code = 24396-9) 85.1 fL See_Comment [Automated messa ge] The system which generated this result transmitted reference range: 80.0-99.0 fL. The reference range was not used to interpret this result as normal/abnormal. MONOCYTES (test code = 14263-3) 4.6 % NEUTROPHILS (test code = 07309-9) 67.9 % PLATELET COUNT (test code = 45970-0) 134 K/UL See_Comment [Automated messa ge] The system which generated this result transmitted reference range: 130-400 K/UL. The reference range was not used to interpret this result as normal/abnormal. RBC (test code = 87574-8) 4.51 M/UL See_Comment [Automated messa ge] The system which generated this result transmitted reference range: 4.50-6.10 M/UL. The reference range was not used to interpret this result as normal/abnormal. RDW (test code = 55741-4) 14.2 % See_Comment [Automated messa ge] The system which generated this result transmitted reference range: 11.5-15.0 %. The reference range was not used to interpret this result as normal/abnormal. WBC (test code = 28172-3) 6.3 K/UL See_Comment [Automated messa ge] The system which generated this result transmitted reference range: 3.5-11.0 K/UL. The reference range was not used to interpret this result as normal/abnormal.
[2024-10-18] MEDS ORDERED: FLUORESCEIN SODIUM 1 MG/WRAP ONE (22:02)
[2024-10-18] MEDS ORDERED: TETRACAINE HCL 0.5% 4ML OPTH ONE (22:02)
[2024-10-18] MEDS ORDERED: ACETAMINOPHEN 500 MG TAB ONE (23:12)
[2024-10-18] MEDS ORDERED: GENTAMICIN 0.3% OPTH DROP 5ML ONE (23:13)
[2024-10-18] MEDS ORDERED: IBUPROFEN 400 MG TAB ONE (23:13)
--- NOTE | 2024-10-18 23:16 | ER ---
Nurse's Notes [facility] Name: Catracho Motta Age: 48 yrs Sex: Male : 1975 Arrival Date: 10/18/2024 Time: 21:43 Bed 20 Private MD: Alberto Ba Diagnosis: Foreign body in conjunctival sac, right eye;Injury of conjunctiva and corneal abrasion without foreign body, right eye Presentation: 10/18 21:54 Chief complaint: Patient states: right eye irritation from possible metal piece. cp4 Coronavirus screen: Client denies travel out of the [place] in the last 14 days. At this time, the client does not indicate any symptoms associated with coronavirus-19. Ebola Screen: Patient negative for fever greater than or equal to 101.5 degrees Fahrenheit, and additional compatible Ebola Virus Disease symptoms Patient denies exposure to infectious person. Patient denies travel to an Ebola-affected area in the 21 days before illness onset. No symptoms or risks identified at this time. Initial Sepsis Screen: Does the patient meet any 2 criteria? HR > 90 bpm. No. Patient's initial sepsis screen is negative. Does the patient have a suspected source of infection? No. Patient's initial sepsis screen is negative. Risk Assessment: Do you want to hurt yourself or someone else? Patient reports no desire to harm self or others. Onset of symptoms was October 18, 2024. 21:54 Method Of Arrival: Ambulatory cp4 21:54 Acuity: JUANA 4 cp4 Triage Assessment: 21:56 General: Appears in no apparent distress. uncomfortable, Behavior is calm, cooperative, cp4 appropriate for age. Pain: Denies pain. Historical: - Allergies: 21:56 Codeine; cp4 - Home Meds: 21:56 Adderall XR Oral [Active]; Clonazepam Oral [Active]; Klonopin Oral [Active]; sertraline cp4 Oral [Active]; - PMHx: 21:56 adhd; Anxiety; Arthritis; cp4 - PSHx: 21:56 back; carpal tunnel; knee; thumb; cp4 - Immunization history:: Adult Immunizations up to date. - Infectious Disease History:: Denies. - Social history:: Smoking status: Patient denies any tobacco usage or history of. Screenin:50 [facility] ED Fall Risk Assessment (Adult) History of falling in the last 3 months, me1 including since admission No falls in past 3 months (0 pts) Confusion or Disorientation No (0 pts) Intoxicated or Sedated No (0 pts) Impaired Gait No (0 pts) Mobility Assist Device Used No (0 pt) Altered Elimination No (0 pt) Score/Fall Risk Level 0 - 2 = Low Risk Maintained a safe environment, Provided non-skid footwear, Hourly rounding (assess needs \T\ fall precautionary measures) done. Abuse screen: Denies threats or abuse. Nutritional screening: No deficits noted. Tuberculosis screening: No symptoms or risk factors identified. Assessment: 21:50 General: Appears uncomfortable, well developed, well nourished, Behavior is calm, me1 cooperative, appropriate for age, Reports right eye irritation from possible metal piece. Pain: Complains of pain in right eye Pain does not radiate. Pain currently is 4 out of 10 on a pain scale. Quality of pain is described as burning, Pain began gradually, 1 day ago. Is continuous. Neuro: Level of Consciousness is awake, alert, obeys commands, Oriented to person, place, time, situation, Appropriate for age. Cardiovascular: Patient's skin is warm and dry. Respiratory: Airway is patent Respiratory effort is even, unlabored, Respiratory pattern is regular, symmetrical. GI: No signs and/or symptoms were reported involving the gastrointestinal system. : No signs and/or symptoms were reported regarding the genitourinary system. EENT: Eyes are tearing on right eye. Derm: Skin is intact, is healthy with good turgor, Skin is pink, warm \T\ dry. Musculoskeletal: No signs and/or symptoms reported regarding the musculoskeletal system. Vital Signs: 21:54 BP 141 / 82; Pulse 94; Resp 18; Temp 98.2; Pulse Ox 96% ; Weight 104.78 kg; Height 5 cp4 ft. 9 in. ; Pain 0/10; 23:24 BP 146 / 85; Pulse 91; Resp 14; Pulse Ox 98% on R/A; me1 21:54 Body Mass Index 34.11 (104.78 kg, 175.26 cm) cp4 21:54 Pain Scale: Adult cp4 Visual Acuity: 23:05 Left Eye Visual acuity 20/70, ; Right Eye Visual acuity 20/25, ; Without Lenses; mo1 ED Course: 21:45 Patient arrived in ED. gm2 21:45 Alberto Ba DO is Private Physician. gm2 21:50 Patient has correct armband on for positive identification. Bed in low position. Call me1 light in reach. Side rails up X2. Provided Education on: POC. Verbalized understanding.. Client placed on continuous cardiac and pulse oximetry monitoring. NIBP monitoring applied. Pulse ox on. NIBP on. 21:50 No provider procedures requiring assistance completed. Patient did not have IV access me1 during this emergency room visit. 21:56 Triage completed. cp4 21:56 Arm band placed on right wrist. Patient placed in waiting room. cp4 21:58 Maria R Jesus, RN is Primary Nurse. me1 22:01 Anoop Rodriguez PA is PHCP. cp 22:01 Reuben Miller MD is Attending Physician. cp 23:14 Jarett Hubbard MD is Referral Physician. cp Administered Medications: 22:51 Drug: Tetracaine Ophthalmic Drops 0.5 % 1 drops Ophthalmic once Route: Ophthalmic; me1 Site: right eye; 23:24 Follow up: Response: No adverse reaction; Pain is decreased me1 23:20 Drug: Gentamicin Ophthalmic Drops 0.3 % 1 drops Ophthalmic once; 1 drop in right eye me1 every 4 hours while awake for 5-7 days Route: Ophthalmic; Site: right eye; 23:20 Drug: Ibuprofen PO 800 mg PO once Route: PO; me1 23:24 Follow up: Response: No adverse reaction; Pain is decreased me1 23:20 Drug: Acetaminophen PO 1000 mg PO once Route: PO; me1 23:24 Follow up: Response: No adverse reaction; Pain is decreased me1 Medication: 21:50 VIS not applicable for this client. me1 Outcome: 23:15 Discharge ordered by MD. cp 23:28 Discharged to home ambulatory, with significant other, me1 23:28 Condition: stable 23:28 Discharge instructions given to patient, significant other, Instructed on discharge instructions, follow up and referral plans. medication usage, Demonstrated understanding of instructions, follow-up care, medications, Prescriptions given X 2, 23:29 Patient left the ED. me1 Signatures: Anoop Rodriguez PA PA cp Maria R Jesus, RN RN me1 Antoinette Graff 4 Afshan Paris 2
--- NOTE | 2024-10-18 23:17 | EDPHYS ---
Physician Documentation [facility] Name: Catracho Motta Age: 48 yrs Sex: Male : 1975 Arrival Date: 10/18/2024 Time: 21:43 Bed 20 Private MD: [facility] ED Physician Reuben Miller HPI: 10/18 22:20 This 48 yrs old Male presents to ER via Ambulatory with complaints of Foreign Body In cp Eye. 22:20 The patient is experiencing foreign body sensation, pain, redness, to the right eye, cp caused by an unknown mechanism. 22:20 Onset: The symptoms/episode began/occurred today. cp 22:20 Duration: the symptoms are continuous. Associated signs and symptoms: Pertinent cp negatives: chills, fever. Patient does not utilize any form of vision correction. Severity of symptoms: in the emergency department the symptoms are unchanged despite home interventions. Historical: - Allergies: 21:56 Codeine; cp4 - Home Meds: 21:56 Adderall XR Oral [Active]; Clonazepam Oral [Active]; Klonopin Oral [Active]; sertraline cp4 Oral [Active]; - PMHx: 21:56 adhd; Anxiety; Arthritis; cp4 - PSHx: 21:56 back; carpal tunnel; knee; thumb; cp4 - Immunization history:: Adult Immunizations up to date. - Infectious Disease History:: Denies. - Social history:: Smoking status: Patient denies any tobacco usage or history of. ROS: 22:25 Eyes: Positive for foreign body sensation, pain, redness, of the right eye, cp 22:25 Skin: Negative for cellulitis, rash, cp 22:25 Neuro: Negative for altered mental status, headache, 22:25 All other systems are negative, Exam: 22:30 Constitutional: The patient appears in no acute distress, alert, awake, non-toxic, well cp developed, well nourished, uncomfortable, 22:30 Head/Face: Normocephalic, atraumatic. cp 22:30 Eyes: Periorbital structures: appear normal, Pupils: equal, round, and reactive to cp light and accomodation, Extraocular movements: intact throughout, Conjunctiva: injected, in the right eye, Corneas: abrasion, that is small, on the left, a fluorescein strip employed to appreciate the findings, small rust ring noted lower left cornea, no groo foreign body noted, Anterior chamber: normal, Lids and lashes: right lower lid everted and small dark colored foreign body removed. Examination of the other eye reveals no obvious gross abnormality, 22:30 ENT: External ear(s): are unremarkable, Nose: is normal, Mouth: Lips: moist, Oral mucosa: moist, Posterior pharynx: Airway: no evidence of obstruction, patent, 22:30 Chest/axilla: Inspection: normal, 22:30 Cardiovascular: Rate: normal, 22:30 Respiratory: the patient does not display signs of respiratory distress, Respirations: normal, no use of accessory muscles, no retractions, labored breathing, is not present, Breath sounds: are clear throughout, 22:30 Abdomen/GI: Inspection: abdomen appears normal, 22:30 Skin: no rash present. Vital Signs: 21:54 BP 141 / 82; Pulse 94; Resp 18; Temp 98.2; Pulse Ox 96% ; Weight 104.78 kg; Height 5 cp4 ft. 9 in. ; Pain 0/10; 23:24 BP 146 / 85; Pulse 91; Resp 14; Pulse Ox 98% on R/A; me1 21:54 Body Mass Index 34.11 (104.78 kg, 175.26 cm) cp4 21:54 Pain Scale: Adult cp4 Visual Acuity: 23:05 Left Eye Visual acuity 20/70, ; Right Eye Visual acuity 20/25, ; Without Lenses; me1 MDM: 22:01 Medical Screening Exam initiated cp 23:15 Data reviewed: vital signs, nurses notes, and as a result, I will discharge patient. cp 23:15 Differential diagnosis: Corneal abrasion of Corneal ulcer of Foreign body in I cp considered the following discharge prescriptions or medication management in the emergency department Medications were administered in the Emergency Department. See MAR. Counseling: I had a detailed discussion with the patient and/or guardian regarding the historical points, exam findings, and any diagnostic results supporting the discharge/admit diagnosis, the need for outpatient follow up, an opthalmologist, to return to the emergency department if symptoms worsen or persist or if there are any questions or concerns that arise at home. Response to treatment: the patient's symptoms have markedly improved after treatment, and as a result, I will discharge patient. 10/18 22:15 Order name: Eye Tray; Complete Time: 22:20 cp 10/18 22:15 Order name: Fluoresene Opth strip; Complete Time: 22:20 cp 10/18 22:15 Order name: Visual Acuity; Complete Time: 23:15 cp Administered Medications: 22:51 Drug: Tetracaine Ophthalmic Drops 0.5 % 1 drops Ophthalmic once Route: Ophthalmic; me1 Site: right eye; 23:24 Follow up: Response: No adverse reaction; Pain is decreased me1 23:20 Drug: Gentamicin Ophthalmic Drops 0.3 % 1 drops Ophthalmic once; 1 drop in right eye me1 every 4 hours while awake for 5-7 days Route: Ophthalmic; Site: right eye; 23:20 Drug: Ibuprofen PO 800 mg PO once Route: PO; me1 23:24 Follow up: Response: No adverse reaction; Pain is decreased me1 23:20 Drug: Acetaminophen PO 1000 mg PO once Route: PO; me1 23:24 Follow up: Response: No adverse reaction; Pain is decreased me1 Disposition: 10/19 22:28 Chart complete. cp Disposition Summary: 10/18/24 23:15 Discharge Ordered Notes: Location: Home cp Problem: new cp Symptoms: have improved cp Condition: Stable cp Diagnosis - Foreign body in conjunctival sac, right eye cp - Injury of conjunctiva and corneal abrasion without foreign body, right eye cp Followup: cp - With: Jarett Hubbard MD - When: 2 - 3 days - Reason: Recheck today's complaints Discharge Instructions: - Discharge Summary Sheet cp - Corneal Abrasion cp Forms: - Medication Reconciliation Form cp - Antibiotic Education cp - Prescription Opioid Use cp - Patient Portal Instructions cp - Leadership Thank You Letter cp Prescriptions: - Gentamicin 0.3 % Ophthalmic drops - instill 1 drop OPHTHALMIC route every 4 hours for 7 days; 1 unit; Refills: 0, cp Product Selection Permitted - Ibuprofen 800 mg Oral Tablet - take 1 tablet ORAL route every 8 hours As needed take with food; 30 tablet; cp Refills: 0, Product Selection Permitted Signatures: Anoop Rodriguez PA PA cp Eddleman, Michelle RN RN me1 Antoinette Graff cp4
[2024-10-18 23:44] VITALS: TEMP 98.2
[2024-10-18 23:45] VITALS: BP 146/85; O2SAT 98
== END 2024-10-18 23:29 | disposition home or self-care (01) ==
LOC: ER 21:43
DX: S05.01XA Injury of conjunctiva and corneal abrasion without foreign body, right eye, initial encounter (principal)
CPT/HCPCS: 99284